=== PATIENT | female | born 1955 | race Caucasian/White ===

== ENCOUNTER 2021-10-14 15:50 | Outpatient (REF) | payer MEDICARE, SELFPAY ==
[2021-10-14 19:58] LABS: ALT 41 U/L (14-59); AST 27 U/L (15-37); Albumin 3.9 g/dL (3.4-5.0); Alkaline Phosphatase 73 U/L (46-116); Anion Gap 5.5 mmol/L (3-11); BUN 16 mg/dL (7-18); Bilirubin, Total 0.3 mg/dL (0.2-1.0); CO2 32.5 mmol/L (21.0-32.0); CREATININE 0.6 mg/dL (0.55-1.02); Calcium 9.5 mg/dL (8.5-10.1); Calculated LDL 118 mg/dL (<100); Chloride 102 mmol/L (98-107); Cholesterol 225 mg/dL (<200); Estimated GFR 98.93 (mL/min/1.73m2); Glucose 107 mg/dL (74-106); HDL Cholesterol 50 mg/dL (40-60); Potassium 4.9 mmol/L (3.5-5.1); Sodium 140 mmol/L (136-145); TSH (W/Ref FT4) 2.18 uIU/mL (0.36-3.74); Total Protein 7.9 g/dL (6.4-8.2); Triglyceride 286 mg/dL (<150)
[2021-10-14 20:16] LABS: Vitamin D 25 Total 30.4 ng/mL (30-100)
== END 2021-10-14 15:51 | disposition home or self-care (01) ==
LOC: NCHCN 15:50
PROVIDERS: Visit Provider Nurse Practitioner Family
DX: I10 Essential (primary) hypertension (principal); N95.1 Menopausal and female climacteric states; F41.9 Anxiety disorder, unspecified
CPT/HCPCS: 80053; 80061; 82306; 84443

== ENCOUNTER 2022-03-07 21:42 | Outpatient (REF) | payer MEDICARE, SELFPAY ==
[2022-03-07 22:42] LABS: Hemoglobin A1C 6.6 % (<5.7)
[2022-03-07 22:48] LABS: Anion Gap 8.3 mmol/L (3-11); BUN 18 mg/dL (7-18); CO2 28.7 mmol/L (21.0-32.0); CREATININE 0.7 mg/dL (0.55-1.02); Calcium 9.5 mg/dL (8.5-10.1); Calculated LDL 90 mg/dL (<100); Chloride 104 mmol/L (98-107); Cholesterol 163 mg/dL (<200); Estimated GFR 94.73 (mL/min/1.73m2); Glucose 103 mg/dL (74-106); HDL Cholesterol 39 mg/dL (40-60); Potassium 3.9 mmol/L (3.5-5.1); Sodium 141 mmol/L (136-145); Triglyceride 172 mg/dL (<150)
[2022-03-07 23:22] LABS: Vitamin D 25 Total 35.2 ng/mL (30-100)
== END 2022-03-07 21:43 | disposition home or self-care (01) ==
LOC: NCHCN 21:42
PROVIDERS: Visit Provider Nurse Practitioner Family
DX: E78.5 Hyperlipidemia, unspecified (principal); I10 Essential (primary) hypertension; F41.8 Other specified anxiety disorders; R73.09 Other abnormal glucose; E55.9 Vitamin D deficiency, unspecified
CPT/HCPCS: 80048; 80061; 82306; 83036

== ENCOUNTER 2022-04-22 00:07 | Outpatient (CLI) | payer MEDICARE, SELFPAY ==
--- NOTE | 2022-04-22 | DI.DEXA_ITS ---
Exam(s) XR DEXA BONE DENSITY W/WO ISABELA EXAM: XR DEXA BONE DENSITY W/WO ISABELA CLINICAL HISTORY: MENOPAUSAL SCREENING, Z78.0 TECHNIQUE: COMPARISON: No exams were available for comparison FINDINGS: Lateral Spine Image: Unremarkable. No compression deformities identified. Left hip: Total T-Score: 0.1 Total Z-Score: 1.4 T- and Z-scores: Within normal limits. Lumbar Spine: Total T-Score: 1.5 Total Z-Score: 3.5 T- and Z-scores: Within normal limits. IMPRESSION: No evidence of osteoporosis.
--- NOTE | 2022-04-22 11:46 | DI.MAMMO_ITS ---
Exam(s) MAMMO SCREENING EXAM: MAMMO SCREENING CLINICAL HISTORY: SCREENING, Z12.31 TECHNIQUE: Bilateral full field digital CC and MLO mammographic images were obtained with 3D tomosyn thesis and utilizing computer aided detection (CAD). COMPARISON: Available for comparison. FINDINGS: Masses/Architectural Distortion: None seen. Microcalcifications: No suspicious pleomorphic-type are seen. Skin Thickening/Nipple Retraction: None. IMPRESSION: 1. No significant interval change with no specific features of malignancy noted. 2. Unless there is more urgent need, screening mammography is recommended, as per [employer] guidelines. BI-RADS Category 1 - Negative Breast Density - Category B - Scattered areas of fibroglandular density Breast density category C or D implies that the patient has dense breast tissue. Dense breast tissue is very common and is not abnormal but dense breast tissue can make it harder to find cancer on a ma mmogram. Also, dense breast tissue may increase their breast cancer risk. This information about the result of the mammogram report was provided to the patient to raise their awareness. Use this report when you speak with the patient about their risks for breast cancer, which includes their family hist ory. At that time, you may recommend for more screening tests (Ultrasound or MRI) as they might be us eful based on their risk. A negative radiographic report should not delay biopsy if a dominant or clinically suspicious mass is present. Up to ten percent of cancers are not identified on mammography. A negative report may reinforce clinical impression. Adenosis and dense breasts may obscure an underlying neoplasm. False positive reports average 6 to 10%. Patient will receive a letter notifying them of these results.
== END 2022-04-22 00:27 ==
PROVIDERS: Visit Provider Nurse Practitioner Family
DX: Z12.31 Encounter for screening mammogram for malignant neoplasm of breast (principal); Z78.0 Asymptomatic menopausal state; Z13.820 Encounter for screening for osteoporosis
CPT/HCPCS: 77063; 77067; 77080

== ENCOUNTER 2022-05-19 16:51 | Outpatient (REF) | payer MEDICARE, SELFPAY ==
[2022-05-19 15:38] LABS: Hemoglobin A1C 6.7 % (<5.7)
== END 2022-05-19 16:52 | disposition home or self-care (01) ==
LOC: NCHCN 16:51
PROVIDERS: Visit Provider Nurse Practitioner Family
DX: R73.09 Other abnormal glucose (principal)
CPT/HCPCS: 83036

== ENCOUNTER 2022-06-10 00:13 | Outpatient (CLI) | payer MEDICARE, SELFPAY ==
--- NOTE | 2022-06-10 | DI.CTLCSR_ITS ---
Exam(s) CT CHEST LUNG CANCER SCREEN EXAM: CT CHEST LUNG CANCER SCREEN CLINICAL HISTORY: SMOKER, F17.210,SCREENING FOR LUNG CA. TECHNIQUE: Imaging Protocol: Low Dose Technique CONTRAST MATERIAL: None COMPARISON: No exams were available for comparison FINDINGS: CHEST: LUNGS: There are no ominous pulmonary nodules. There is a small 3 millimeter calcified granuloma loca marci laterally in the left upper lobe. No confluent infiltrates, ominous pulmonary nodules, nor pleur al effusions. MEDIASTINUM: There is no obvious hilar nor mediastinal adenopathy. CARDIAC: Heart size normal. There is a small pericardial effusion. Caliber thoracic aorta is within normal limits.. OTHER: There is a nodule in the right adrenal gland which measures 1.7 x 1.6 cm. Left adrenal gland appears unremarkable. Liver appears slightly prominent in size. Spleen size normal. OSSEOUS: No significant osseous lesions.. Scoliosis noted.. No fractures. IMPRESSION: 1. No significant pulmonary nodules, infiltrates, nor pleural effusions and there is no intrathoracic adenopathy. 2. Pericardial effusion noted. Requires follow-up. 3. Lung RADS Cat 1S - Negative: No nodules and definitely benign nodules. However, there is a perica rdial effusion noted. This requires appropriate follow-up. Lung-RADS 1.0 CATEGORIES: Category 0 - Prior chest CT exam(s) being located for comparison. Category 1 - Annual screening in 12 months. No nodules or definitely benign nodules. Category 2 - Annual screening in 12 months. Benign appearance. Nodules with low likelihood of becomin g active cancer. Category 3 - 6-month follow-up. Probably benign. Short-term follow-up suggested. Nodules with low lik elihood of becoming active cancer. Category 4A - 3-month follow-up and CT/PET if >8 mm in size. Suspicious finding. Findings which requi re additional testing. Category 4B - Findings which require additional testing and tissue sampling. Category 4X - Category 3 or 4 nodules with additional features or imaging findings that increases the suspicion of malignancy. Modifier S- Potentially clinically significant findings (non lung cancer) RADIATION DOSE DELIVERED: 70.35mGy.cm Total DLP DATA REPOSITORY: All CT scans at this facility are submitted to the National Radiology Data Registry (NRDR) Dose Index Registry (DIR) with the [employer] (ACR). RADIATION OPTIMIZATION: All CT scans at this facility use at least one of these dose optimization te chniques: automated exposure control; mA and/or kV adjustment per patient size (includes targeted exa ms where dose is matched to clinical indication); or iterative reconstruction.
== END 2022-06-10 00:33 ==
LOC: DI 00:14
PROVIDERS: Visit Provider Nurse Practitioner Family
DX: F17.210 Nicotine dependence, cigarettes, uncomplicated (principal)
CPT/HCPCS: 71271

== ENCOUNTER 2022-06-28 15:09 | Emergency (ER) | payer MEDICARE, SELFPAY ==
[2022-06-28 15:12] VITALS: BP 155/99; PULSE 105; RESP 18; TEMP 36.8; O2SAT 96
--- NOTE | 2022-06-28 15:27 | ED.GENADUL_ITS ---
Discharge Plan Disposition Patient Disposition: Home Condition: Good Discharge Details Clinical Impression: Acute Lyme disease, Tick bite Primary Care Provider: Unknown,Unknown ED Provider: Gal Huntley Home Meds and New Rx's Prescriptions: New doxycycline hyclate 100 mg capsule 100 mg PO BID 14 Days Qty: 28 0RF Continued losartan 50 mg Tablet 50 mg PO DAILY sertraline 50 mg Tablet 50 mg PO DAILY metformin 500 mg Tablet Extended Release 24hr 500 mg PO DAILY Discharge Instructions Instructions: Lyme Disease (ED), Tick Bite (ED) Additional Instructions: You were seen in the emergency department for a rash after a tick bite on your right upper leg/lower glute. Based off our exam you likely have a bull's-eye rash associated with Lyme disease. Take the antibiotics prescribed for the full duration even if you start to feel better. Follow-up with your primary care doctor about this visit. HPI General Date/Time Provider Initiated Documentation: 06/28/22 15:23 . Related Data Home Medications Medication Instructions Recorded Confirmed doxycycline hyclate 100 mg capsule 100 mg PO BID 14 days #28 caps 06/28/22 losartan 50 mg tablet 50 mg PO DAILY 06/28/22 06/28/22 metformin 500 mg tablet,extended 500 mg PO DAILY 06/28/22 06/28/22 release 24hr sertraline 50 mg tablet 50 mg PO DAILY 06/28/22 06/28/22 Previous Rx's Medication Instructions Recorded doxycycline hyclate 100 mg capsule 100 mg PO BID 14 days #28 caps 06/28/22 Allergies Allergy/AdvReac Type Severity Reaction Status Date / Time codeine AdvReac Intermediate Nausea Unverified 06/28/22 15:19 General Stated Complaint: RashLesion PAMELA: 4 PFSH All Active Problems (Updated 06/28/22 @ 15:28 by Gal Huntley MD) Acute Lyme disease (Acute) Tick bite (Acute) Social History Smoking/Tobacco Use Status: Current every day Tobacco Type: cigarettes Smoking risk assessment performed?: Yes Alcohol Intake: never Drug use: Never Substance use type: marijuana Do you feel safe at home: Yes Do you feel safe in your relationship?: Yes Course Vital Signs Vital signs: Vital Signs Temperature 36.8 C 06/28/22 15:12 Pulse 105 H 06/28/22 15:12 Respiratory Rate 18 06/28/22 15:12 Blood Pressure 155/99 H 06/28/22 15:12 Pulse Oximetry 96 06/28/22 15:12 Temperature 36.8 C 06/28/22 15:12 Temperature Source Temporal Artery Scan 06/28/22 15:12 Pulse 105 H 06/28/22 15:12 Respiratory Rate 18 06/28/22 15:12 Respiratory Effort Normal, Non-Labored 06/28/22 15:18 Blood Pressure 155/99 H 06/28/22 15:12 Blood Pressure Position Sitting 06/28/22 15:12 Pulse Oximetry 96 06/28/22 15:12 Oxygen Delivery Method Room Air 06/28/22 15:12 Oxygen Flow Rate 0 06/28/22 15:12
== END 2022-06-28 15:54 | disposition home or self-care (01) ==
PROVIDERS: Emergency Provider Student in an Organized Health Care Education/Training Program
DX: S71.151A Open bite, right thigh, initial encounter (principal); W57.XXXA Bitten or stung by nonvenomous insect and other nonvenomous arthropods, initial encounter
CPT/HCPCS: 99283

== ENCOUNTER 2022-12-12 17:37 | Outpatient (REF) | payer MEDICARE, SELFPAY ==
[2022-12-12 19:31] LABS: TSH (W/Ref FT4) 1.66 uIU/mL (0.36-3.74)
[2022-12-12 19:36] LABS: Hemoglobin A1C 6.5 % (<5.7)
== END 2022-12-12 17:38 | disposition home or self-care (01) ==
LOC: NCHCN 17:37
PROVIDERS: PCP Nurse Practitioner Family; Visit Provider Nurse Practitioner Family
DX: E11.9 Type 2 diabetes mellitus without complications (principal); I10 Essential (primary) hypertension; E78.5 Hyperlipidemia, unspecified
CPT/HCPCS: 83036; 84443

== ENCOUNTER 2023-03-20 18:20 | Outpatient (REF) | payer MEDICARE, SELFPAY ==
[2023-03-20 19:58] LABS: Hemoglobin A1C 5.9 % (<5.7)
== END 2023-03-20 18:21 | disposition home or self-care (01) ==
LOC: NCHCN 18:20
PROVIDERS: PCP Nurse Practitioner Family; Visit Provider Nurse Practitioner Family
DX: E11.9 Type 2 diabetes mellitus without complications (principal)
CPT/HCPCS: 83036

== ENCOUNTER 2023-10-05 13:43 | Emergency (ER) | payer MEDICARE, SELFPAY ==
[2023-10-05] VITALS (14 sets, daily range): BP systolic 112–169; BP diastolic 68–92; PULSE 75–92; RESP 17–25; TEMP 36.6–37; O2SAT 93–98
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
--- NOTE | 2023-10-05 14:16 | DI.RAD_ITS ---
Exam(s) XR CHEST 1V IN DI DEPT EXAM: XR CHEST 1V IN DI DEPT CLINICAL HISTORY: dizziness TECHNIQUE: 2D digital imaging was performed. COMPARISON: No exams were available for comparison FINDINGS: LUNGS: Clear. No pleural abnormality seen. HEART: Normal size. AORTA: Normal diameter. BONES: Scoliosis. Soft tissues: Unremarkable. IMPRESSION: No acute findings. DATA REPOSITORY: RADIATION DOSE DELIVERED:
[2023-10-05 14:31] LABS: Abs Immature Grans 0.02 10^3/uL (0.0-0.06); Absolute Basophil Count 0.05 10^3/uL (0.0-0.2); Absolute Eosinophil Count 0.19 10^3/uL (0.0-0.7); Absolute Lymphocyte Count 2.39 10^3/uL (1.2-3.4); Absolute Monocyte Count 0.49 10^3/uL (0.1-0.8); Basophils % 0.7 %; Eosinophils % 2.7 %; HCT 44.8 % (36.0-46.0); HGB 14.7 g/dL (11.2-15.7); Immature Grans % 0.3 %; Lymphocytes % 33.9 %; MCH 30.4 pg (27.0-33.0); MCHC 32.8 % (32.0-36.0); MCV 93 fL (80-95); MPV 10.7 fL (8.0-11.0); Neutrophils % 55.4 %; Platelet Count 200 10^3/uL (130-400); RBC 4.84 10^6/uL (3.93-5.22); RDW 13.3 % (11.7-14.6); RDW-SD 45.4 fL; WBC 7.04 10^3/uL (4.4-10.8)
[2023-10-05 14:49] LABS: ALT 29 U/L (14-59); AST 16 U/L (15-37); Albumin 3.8 g/dL (3.4-5.0); Alkaline Phosphatase 89 U/L (46-116); Anion Gap 7.6 mmol/L (3-11); BUN 16 mg/dL (7-18); Bilirubin, Total 0.38 mg/dL (0.2-1.0); CO2 29.4 mmol/L (21.0-32.0); CREATININE 0.7 mg/dL (0.55-1.02); Calcium 9.9 mg/dL (8.5-10.1); Chloride 101 mmol/L (98-107); Estimated GFR 94.15 (mL/min/1.73m2); Glucose 108 mg/dL (74-106); Potassium 4.1 mmol/L (3.5-5.1); Sodium 138 mmol/L (136-145); Total Protein 7.4 g/dL (6.4-8.2)
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
[2023-10-05] MEDS: Normal Saline - Diluent 50 ML VIAL IJ (15:53)
[2023-10-05] MEDS: Omnipaque 350 MG/ML 100 ML BTL 70 ML IJ (15:54)
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
--- NOTE | 2023-10-05 16:26 | DI.VRAD_ITS ---
PROCEDURE INFORMATION: Exam: XR Chest Exam date and time: 10/05/2023 3:55 PM Age: 68 years old Clinical indication: Other: Dizziness TECHNIQUE: Imaging protocol: Radiologic exam of the chest. Views: 1 view. COMPARISON: CT CHEST LUNG CANCER SCREEN 06/10/2022 13:56 FINDINGS: Tubes, catheters and devices: EKG wires overlie the chest. Lungs: Unremarkable. No consolidation. Pleural spaces: Unremarkable. No pleural effusion. No pneumothorax. Heart/Mediastinum: Unremarkable. No cardiomegaly. Bones/joints: Degenerative scoliotic changes of the spine. IMPRESSION: No acute cardiopulmonary findings. Dictated and Authenticated by: Alondra Bales MD. Ordering:LAUREN Dueñas MD
--- NOTE | 2023-10-05 16:31 | DI.VRAD_ITS ---
PROCEDURE INFORMATION: Exam: XR Right Wrist Exam date and time: 10/05/2023 3:51 PM Age: 68 years old Clinical indication: Pain; Wrist; Right TECHNIQUE: Imaging protocol: Radiologic exam of the right wrist. Views: 3 or more views. COMPARISON: No relevant prior studies available. FINDINGS: Bones/joints: Deformity of the lateral aspect of the wrist. Surgical clips involving the scaphoid. Degenerative changes at the radial carpal joint. Degenerative changes of the 1st and 2nd metacarpal carpal joint. Soft tissues: Soft tissue swelling of the wrist. IMPRESSION: Postsurgical changes of the wrist with associated degenerative changes. Dictated and Authenticated by: Alondra Bales MD. Ordering:LAUREN Dueñas MD
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
[2023-10-05] MEDS: Ibuprofen 600 MG TAB PO (16:49)
[2023-10-05] MEDS: Lidocaine 5% Patch 1 PATCH TP (16:50)
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
== END 2023-10-05 16:48 | disposition home or self-care (01) ==
LOC: ER 16:40
PROVIDERS: Physician Assistant; Emergency Provider Nurse Practitioner Family; PCP Nurse Practitioner Family
DX: S63.501A Unspecified sprain of right wrist, initial encounter (principal); S13.4XXA Sprain of ligaments of cervical spine, initial encounter; S06.0XAA Concussion with loss of consciousness status unknown, initial encounter; R42 Dizziness and giddiness; V49.40XA Driver injured in collision with unspecified motor vehicles in traffic accident, initial encounter
CPT/HCPCS: 00123; 29125; 36416; 70496; 70498; 80053; 82962; 93005; 99285; 71045; 72125; 73110; 85025; 93010; 99283; J3490

== ENCOUNTER 2024-03-04 19:26 | Outpatient (REF) | payer MEDICARE, SELFPAY ==
[2024-03-04 17:51] LABS: ALT 29 U/L (14-59); AST 16 U/L (15-37); Alkaline Phosphatase 82 U/L (46-116); Anion Gap 11.1 mmol/L (3-11); BUN 15 mg/dL (7-18); Bilirubin, Total 0.36 mg/dL (0.2-1.0); CO2 27.9 mmol/L (21.0-32.0); CREATININE 0.7 mg/dL (0.55-1.02); Calcium 9.9 mg/dL (8.5-10.1); Calculated LDL 52 mg/dL (<100); Chloride 105 mmol/L (98-107); Cholesterol 147 mg/dL (<200); Estimated GFR 93.56 (mL/min/1.73m2); Glucose 109 mg/dL (74-106); HDL Cholesterol 56 mg/dL (40-60); Potassium 4.3 mmol/L (3.5-5.1); Sodium 144 mmol/L (136-145); Total Protein 7.1 g/dL (6.4-8.2); Triglyceride 199 mg/dL (<150)
[2024-03-04 18:02] LABS: COMMENT (LAB VIEW ONLY) 69.22 mg/dL
[2024-03-04 18:56] LABS: Microalb ug/mg Crea 1257.2 ug/mg Cr
== END 2024-03-04 19:27 | disposition home or self-care (01) ==
LOC: NCHCN 19:26
PROVIDERS: PCP Nurse Practitioner Family; Visit Provider Nurse Practitioner Family
DX: E11.9 Type 2 diabetes mellitus without complications (principal)
CPT/HCPCS: 80053; 80061; 82043; 82570

== ENCOUNTER 2024-03-08 19:39 | Outpatient (REF) | payer MEDICARE, SELFPAY ==
[2024-03-08 18:51] LABS: Bacteria Few HPF (Negative); C & S Indicated? No; Casts Negative LPF (Negative); Crystals Negative HPF (Negative); Epithelial Cells Rare HPF (Negative); Mucus Negative (Negative); RBC Negative HPF (0-2)
== END 2024-03-08 19:40 | disposition home or self-care (01) ==
LOC: NCHCN 19:39
PROVIDERS: PCP Nurse Practitioner Family; Visit Provider Nurse Practitioner Family
DX: R80.9 Proteinuria, unspecified (principal)
CPT/HCPCS: 81015

== ENCOUNTER 2024-04-18 01:16 | Outpatient (CLI) | payer MEDICARE, SELFPAY ==
--- NOTE | 2024-04-18 | DI.US_ITS ---
Exam(s) US RENAL EXAM: US RENAL CLINICAL HISTORY: ALBUMINURIA, R80.9, PROTEINURIA. TECHNIQUE: Ann scale, color and spectral Doppler were used. COMPARISON: No exams were available for comparison FINDINGS: Renal size in cm: Right: 11.4. Left: 10.5. Echogenicity: Normal. Hydronephrosis: No. Cyst or mass: There is a 1.8 x 1.2 x 1.3 cm simple cyst in the superior pole of the left kidney. No follow-up is recommended. Nephrolithiasis: No. Other findings: None. Bladder:Normal. Ureteral jets: Right: Visualized and unremarkable. Left: Visualized and unremarkable. Prevoid vol:203 cc Postvoid vol:0 cc Renal color flow: Symmetric and within normal limits. IMPRESSION: Unremarkable examination. DATA REPOSITORY:
== END 2024-04-18 01:36 ==
PROVIDERS: PCP Nurse Practitioner Family; Visit Provider Nurse Practitioner Family
DX: R80.9 Proteinuria, unspecified (principal)
CPT/HCPCS: 76770

== ENCOUNTER 2024-05-08 12:37 | Observation (INO) | payer MEDICARE, SELFPAY ==
[2024-05-08] VITALS (46 sets, daily range): BP systolic 109–163; BP diastolic 49–104; PULSE 90–120; RESP 5–30; TEMP 36.2–36.7; O2SAT 86–99
--- NOTE | 2024-05-08 12:30 | RT.EKG_ITS ---
APPROVED REPORT Exam: Resting ECG Reason for Exam: SOB Patient Location: E HR:106 bpm ECG Measurements Heart Rate 106 AXIS RI 153 P 79 QRSd 84 QRS 92 QT 332 T 60 QTc 442 Conclusion Sinus tachycardia...rate> 99 Probable left atrial enlargement...P >50mS, <-0.10mV V1 Right axis deviation...QRS axis ( 54,603) No STEMI
--- NOTE | 2024-05-08 12:30 | DI.RAD_ITS ---
Exam(s) XR PORTABLE CHEST AP EXAM: XR PORTABLE CHEST AP CLINICAL HISTORY: Shortness of breath TECHNIQUE: 2D digital imaging was performed of the chest. One image was obtained. An AP view was ob tained. COMPARISON: CR,XR XR CHEST 1V IN DI DEPT from 10/05/2023 FINDINGS: MEDIASTINUM: Normal. HEART: Normal. PULMONARY VASCULATURE: Normal. LUNGS: Clear. PLEURAL SPACE: No pleural effusion or pneumothorax. BONE:Within normal limits for the patient's age. There is a right convex thoracic scoliosis. OTHER FINDINGS:Normal. IMPRESSION: No acute pulmonary findings. DATA REPOSITORY: RADIATION DOSE DELIVERED:
--- NOTE | 2024-05-08 12:45 | W.ED.GENAD ---
Discharge Plan Disposition Patient Disposition: Admit to [facility] Discharge Details Clinical Impression: Reactive airway disease with acute exacerbation, Acute respiratory failure with hypoxia and hypercarbia Primary Care Provider: Charlene Pool ED Provider: Karan Delgado Home Meds and New Rx's Prescriptions: No Action albuterol sulfate 90 mcg/actuation HFA aerosol inhaler 2 puff INHALATION Q4H PRN Patient Comments: INHALE TWO PUFFS BY MOUTH EVERY 4 HOURS NEEDED FOR WHEEZE losartan 50 mg Tablet 50 mg PO DAILY sertraline 50 mg Tablet 50 mg PO DAILY metformin 500 mg Tablet Extended Release 24hr 500 mg PO DAILY HPI General Date/Time Provider Initiated Documentation: 05/08/24 12:43. HPI Narrative: MDM This is an overall well-appearing normothermic but initially tachycardic 69-year-old female with prolonged expiratory phase hypoxia concerning for acute exacerbation of reactive airway disease. She is requiring several liters oxygen and as result will likely require hospitalization. Bedside ultrasound was not consistent with acute heart failure. Will send a D-dimer to assess for PE. Patient is not having chest pain to suggest aortic dissection. No black no bloody stools no history of anticoagulation to suggest acute GI bleed. No obvious murmurs to suggest aortic stenosis. Patient does not have a formal diagnosis of COPD but given her history of tobacco use she will certainly benefit from PFTs as an outpatient if these have not been done already. No trauma and equal breath sounds so my suspicion is low for pneumothorax. Patient is tachycardic but has not had any fevers so my suspicion is low for pneumonia given that her symptoms began just over the past several days. Will swab for influenza COVID and RSV. Will provide prednisone doxycycline. 1:52 PM COVID influenza RSV all negative. D-dimer less than 1000 and based on the years criteria will defer CT chest. No GEO. CBC lacks anemia thrombocytopenia and leukocytosis. Portable chest no acute cardiopulmonary process. 2:15 PM Venous blood gas showing mild hypercarbia with borderline acidemic. Will trial positive pressure secondary to her WOB as she has some pursed lip breathing. She is requiring 1 L. No obvious infiltrate on chest x-ray we will defer amoxicillin. 3:45 PM Patient wore rescue BiPAP for approximately 1 hour. Became slightly difficult for her to remain adherent with the mask switched so she removed it. Her venous pH was markedly improved. Will hospitalize her on the floor. I was in touch with Dr. Jensen from the hospitalist team graciously agreed to accept the patient for hospitalization. Diagnostic interpretations performed by me: No acute cardiopulmonary process Per my independent interpretation chest x-ray shows: Per my independent interpretation EKG shows: Narrow complex sinus tachycardia at a rate of 106. Right axis deviation. Intervals within normal limits. No ST segment abnormalities. No T wave versions. T wave flattening in aVL. Compared to prior dated last year no acute changes. HPI This is a 69-year-old former smoker arrived to the emergency department in setting of increased productive cough and shortness of breath the past 2 days. She has been bringing up thick or yellow sputum. She reports that 2 months ago she had pneumonia and was on antibiotics. Oxygen saturation on room air was 85%. It increased to 98% on 3 L. Patient has had no chest pain or abdominal pain. She denies ongoing tobacco use. She has not formally been diagnosed with COPD. She has been sleeping in a chair. No trauma to the chest. Exam General: Well-appearing in mild distress speaking in complete sentences. Head: Normocephalic, atraumatic. Eye: Extraocular eye movements intact. No conjunctival injection. No scleral icterus. Ear, nose, mouth, throat: Grossly normal inspection. Normal voice, handling secretions normally. Neck: Trachea midline. Cardiovascular: Well-perfused distal extremities. Rapid regular rate. Respiratory: Nonlabored respiration. Markedly prolonged expiratory phase with end expiratory wheezes. No stridor. No retractions. Gastrointestinal: Nondistended abdomen. Musculoskeletal: No significant lower extremity pitting edema. Moving all 4 extremities spontaneously. Skin: Normal for age and race, grossly normal temperature and turgor. No acute rash. Neurologic: Alert and appropriate, no apparent acute deficits. Psychiatric: Mood and manner are appropriate. Grooming and personal hygiene are appropriate. Related Data Home Medications ?Medication ?Instructions ?Recorded ?Confirmed losartan 50 mg tablet 50 mg PO DAILY 06/28/22 05/08/24 metformin 500 mg tablet,extended 500 mg PO DAILY 06/28/22 05/08/24 release 24hr (osmotic) sertraline 50 mg tablet 50 mg PO DAILY 06/28/22 05/08/24 albuterol sulfate 90 mcg/actuation 2 puff inhalation Q4H PRN 05/08/24 05/08/24 aerosol inhaler Allergies Allergy/AdvReac Type Severity Reaction Status Date / Time codeine AdvReac Intermediate Nausea Unverified 05/08/24 12:43 General Stated Complaint: SOB PAMELA: 3 Course Vital Signs Vital signs: Vital Signs Temperature 36.4 C 05/08/24 12:39 Pulse 110 H 05/08/24 12:39 Respiratory Rate 28 H 05/08/24 12:39 Blood Pressure 133/92 H 05/08/24 12:39 Pulse Oximetry 96 05/08/24 12:39 Temperature 36.4 C 05/08/24 12:39 Temperature Source Tympanic 05/08/24 12:39 Pulse 110 H 05/08/24 12:39 Respiratory Rate 28 H 05/08/24 12:39 Blood Pressure 133/92 H 05/08/24 12:39 Blood Pressure Position Sitting 05/08/24 12:39 Pulse Oximetry 96 05/08/24 12:39 Oxygen Delivery Method Nasal Cannula 05/08/24 12:39 Oxygen Flow Rate 3 05/08/24 12:39 Pain Level 0 05/08/24 12:39 Medical Decision Making Quality:SDOH Health Related Social Needs: No Data to Display Critical Care Time Critical Care Time Critical Care Time: Yes Total Critical Care Time: 45 Attestation: Acute hypoxemic respiratory failure secondary to exacerbation reactive airway disease requiring bedside assessment and management. PFSH All Active Problems (Updated 05/08/24 @ 14:12 by Karan Delgado MD) Acute respiratory failure with hypoxia and hypercarbia (Acute) Reactive airway disease with acute exacerbation (Acute) Social History Smoking/Tobacco Use Status: Current every day Tobacco Type: cigarettes Smoking risk assessment performed?: Yes Alcohol Intake: never Drug use: Never Substance use type: marijuana Do you feel safe at home: Yes Do you feel safe in your relationship?: Yes POCUS Exam (ED) Limited Cardiac Exam DATE OF EXAM: 05/08/24 TIME OF EXAM: 14:00 PROVIDER THAT PERFORMED THE STUDY: Karan Delgado IS THIS A REPEAT EXAM DURING THIS ENCOUNTER: no REASON FOR EXAM: Dyspnea VISUALIZED STRUCTURES: Four Chambers, Left ventricle, LVOT and Other structure: Lungs VIEW OBTAINED: Apical 4-Chamber, Parasternal long-axis and Subxiphoid PERTINENT FINDINGS/IMPRESSION: No pericardial effusion and No RV dilation DIFFERENTIAL DIAGNOSES: Aortic outflow track less than 4 cm, good squeeze, RV less than LV, no significant pericardial effusion. No B-lines bilaterally. Exam complete
[2024-05-08] MEDS: predniSONE 20 MG TAB 60 MG PO (12:57)
[2024-05-08] MEDS: Albuterol/Ipratropium 3 ML UPD VIAL UPD (12:57)
[2024-05-08] MEDS: Normal Saline 500 ML 1000 ML IV (12:58)
[2024-05-08 13:03] LABS: Abs Immature Grans 0.03 10^3/uL (0.0-0.06); Absolute Basophil Count 0.09 10^3/uL (0.0-0.2); Absolute Eosinophil Count 1.02 10^3/uL (0.0-0.7); Absolute Lymphocyte Count 2.11 10^3/uL (1.2-3.4); Absolute Monocyte Count 0.66 10^3/uL (0.1-0.8); Absolute Neutrophil Count 5.65 10^3/uL (1.2-6.7); Basophils % 0.9 %; Eosinophils % 10.7 %; HCT 45.7 % (36.0-46.0); HGB 14.8 g/dL (11.2-15.7); Immature Grans % 0.3 %; Lymphocytes % 22.1 %; MCHC 32.4 % (32.0-36.0); MCV 93 fL (80-95); MPV 10.5 fL (8.0-11.0); Monocytes % 6.9 %; Neutrophils % 59.1 %; Platelet Count 202 10^3/uL (130-400); RBC 4.93 10^6/uL (3.93-5.22); RDW 13.9 % (11.7-14.6); RDW-SD 47.1 fL; WBC 9.56 10^3/uL (4.4-10.8)
[2024-05-08 13:23] LABS: Anion Gap 7.6 mmol/L (3-11); BUN 17 mg/dL (7-18); CO2 32.4 mmol/L (21.0-32.0); CREATININE 0.7 mg/dL (0.55-1.02); Calcium 9.6 mg/dL (8.5-10.1); Chloride 104 mmol/L (98-107); Estimated GFR 93.56 (mL/min/1.73m2); Glucose 120 mg/dL (74-106); Potassium 4.3 mmol/L (3.5-5.1); Sodium 144 mmol/L (136-145)
[2024-05-08 13:25] LABS: Troponin I 8 ng/L (<or=51)
[2024-05-08 13:40] LABS: COVID-19 PCR Negative (Negative); Influenza A PCR Negative (Negative); Influenza B PCR Negative (Negative); RSV PCR Negative (Negative); Source Nasopharynx
[2024-05-08 13:42] LABS: D-Dimer 948 ng/mlFEU (<500)
[2024-05-08 13:50] LABS: Lab Add On Test DONE
[2024-05-08] MEDS: Doxycycline Hyclate 100 MG CAP PO (14:01)
[2024-05-08 14:08] LABS: BE (Venous) 5 mmol/L (-2-3); HCO3 (Venous) 31 mmol/L (23-28); O2 Sat (Venous) 41 %; TCO2 (Venous) 29 mmol/L (24-29); pH (Venous) 7.32 (7.31-7.41); pO2 (Venous) 25 mmHg
[2024-05-08 14:08] LABS: Troponin I 11 ng/L (<or=51)
[2024-05-08 14:11] LABS: pCO2 (Venous) 61 mmHg (41-51)
[2024-05-08 15:35] LABS: BE (Venous) 3 mmol/L (-2-3); HCO3 (Venous) 28 mmol/L (23-28); O2 Sat (Venous) 71 %; TCO2 (Venous) 26 mmol/L (24-29); pCO2 (Venous) 52 mmHg (41-51); pH (Venous) 7.34 (7.31-7.41); pO2 (Venous) 39 mmHg
--- NOTE | 2024-05-08 15:47 | W.PM.HP.N ---
Date of service: 05/08/24 Time of Service: 15:47 Assessment and Plan Assessment and plan (1) Acute respiratory failure with hypoxia and hypercarbia: Status: Acute Assessment and plan: Presented with hypoxia and PH 7.32 PCO2 61 on VBG- improving with BIPAP in the ED Repeat VBG in deteriorates PRN BIPAP And as below (2) COPD exacerbation: Status: Acute Assessment and plan: Increased cough, with yellowish sputum production - no official PFT- to be done OPT, but the patient smoked 1 pack/2 days for 43 years until last years Continue prednisone Continue doxycycline Scheduled and PRN nebs O2 wean as tolerated for sat 88-92% Mucinex (3) Reactive airway disease with acute exacerbation: Status: Acute Assessment and plan: Might be d/t history of seasonal allergy (4) Diabetes: Status: Chronic Assessment and plan: Gluc AC and HS with SSI Continue home dose semaglutide Not taking metformin anymore (5) On deep vein thrombosis (DVT) prophylaxis: Status: Acute Assessment and plan: On Lovenox Discussed with Dr. Jensen History of Present Illness History of Present Illness Chief Complaint: Shortness of breath, cough Narrative: This 69 years old female patient with a 21-pack year smoking history and quitting last year, seasonal allergies,pneumonia a month ago and outpatient treatment with prednisone and zithromax, hypertension presented to the ED at [facility] for evaluation of worsening shortness of breath starting 2 days prior with increased productive cough of clear to yellow sputum. VGB intially showed mild respiratory acidosis with a PH of 7.32, PCO2 61, HCO3 31 with improvement on BIPAP resulting in PH 7.34 PCO2 52 and HCO3 28. CXR was negative for acute findings, no other acute abnormality seen in blood work except for D-dimer at 948 , EKG showed ST HR 106 with some right axis deviation( V5) w/o signs of coronary occlusion. The patient was admitted to the medical floor for further evaluation of hypercabic acute hypoxic respiratory failure, COPD exacerbation. The patient received doxycycline and prednisone in the ED. Full code status confirmed. The patient denied fever, chills, change in vision , chest pain , nausea, vomiting, diarrhea, or dysuria. The patient reported difficulty breathing, ambulating d/t increased WOB when attempted, productive cough of yellowish sputum, tingling to extremities [employer], pneumonia last month with outpatient treatment, smoking history of 43 years and quitting last year. Review of Systems All systems reviewed & are unremarkable except as noted in HPI and below PFSH All Active Problems (Updated 05/08/24 @ 17:15 by Lety Ulloa APRN) On deep vein thrombosis (DVT) prophylaxis (Acute) Diabetes (Chronic) COPD exacerbation (Acute) Acute respiratory failure with hypoxia and hypercarbia (Acute) Reactive airway disease with acute exacerbation (Acute) Social History Smoking/Tobacco Use Status: Current every day Tobacco Type: cigarettes Smoking risk assessment performed?: Yes Alcohol Intake: never Drug use: Never Substance use type: marijuana Housing: house Do you feel safe at home: Yes Do you feel safe in your relationship?: Yes Meds Allergies and Home Medications Allergies Allergy/AdvReac Type Severity Reaction Status Date / Time codeine AdvReac Intermediate Nausea Unverified 05/08/24 12:43 Home Medications ?Medication ?Instructions ?Recorded ?Confirmed ?Type losartan 50 mg tablet 50 mg PO DAILY 06/28/22 05/08/24 History metformin 500 mg tablet,extended 500 mg PO DAILY 06/28/22 05/08/24 History release 24hr (osmotic) sertraline 50 mg tablet 50 mg PO DAILY 06/28/22 05/08/24 History albuterol sulfate 90 mcg/actuation 2 puff inhalation Q4H PRN 05/08/24 05/08/24 History aerosol inhaler Exam Narrative Exam Narrative: Constitutional The patient lying down with minimal respiratory distress when moving HENMT: Facial structures with normal appearance Eyes: Well aligned, intact ROM Neuro:alert and oriented X 4. No neurological focal deficit Resp: Speaks short sentences, labored breathing with speech, diminished breath sound bilaterally to LL , some air flow to upper lung, faint scattered exp wheezing Cardio: regular rhythm, S1, S2, bilateral radial and dorsalis pedis pulses are positive, palpable GI: Abdomen is not distended, soft and non tender, bowel sounds are present : Negative Costovertebral angle tenderness, no bladder distension Back/spine/Pelvis: No back tenderness, normal alignment Integumentary: No skin lesions or rash Extremities: strength 5/5 to bilateral lower and upper extremities Psych: RASS 0, congruent mood and normal affect. Results Labs 05/09/24 06:02 05/09/24 06:02 Labs: Laboratory Results - last 24 hr 05/08/24 05/08/24 05/08/24 12:54 12:58 13:11 WBC 9.56 RBC 4.93 Hgb 14.8 Hct 45.7 MCV 93 MCH 30.0 MCHC 32.4 RDW 13.9 Plt Count 202 MPV 10.5 Immature Gran % 0.3 Neutrophils % 59.1 Lymphocytes % 22.1 Monocytes % 6.9 Eosinophils % 10.7 Basophils % 0.9 Nucleated RBC % 0.0 Absolute Neutrophils 5.65 Absolute Lymphocytes 2.11 Absolute Monocytes 0.66 Absolute Eosinophils 1.02 H Absolute Basophils 0.09 D-Dimer 948 H VBG pH VBG pCO2 VBG pO2 VBG HCO3 VBG Total CO2 VBG O2 Saturation VBG Base Excess Sodium 144 Potassium 4.3 Chloride 104 Carbon Dioxide 32.4 H Anion Gap 7.6 BUN 17 Creatinine 0.7 Est GFR (CKD-EPI 2020) 93.56 Glucose 120 H Calcium 9.6 Troponin I 8 COVID-19 Source Nasopharynx SARS-CoV-2 (PCR) Negative Influenza Type A (PCR) Negative Influenza Type B (PCR) Negative RSV (PCR) Negative Add-On Test Request DONE 05/08/24 05/08/24 05/08/24 13:35 14:05 15:30 WBC RBC Hgb Hct MCV MCH MCHC RDW Plt Count MPV Immature Gran % Neutrophils % Lymphocytes % Monocytes % Eosinophils % Basophils % Nucleated RBC % Absolute Neutrophils Absolute Lymphocytes Absolute Monocytes Absolute Eosinophils Absolute Basophils D-Dimer VBG pH 7.32 7.34 VBG pCO2 61 H 52 H VBG pO2 25 39 VBG HCO3 31 H 28 VBG Total CO2 29 26 VBG O2 Saturation 41 71 VBG Base Excess 5 H 3 Sodium Potassium Chloride Carbon Dioxide Anion Gap BUN Creatinine Est GFR (CKD-EPI 2020) Glucose Calcium Troponin I 11 COVID-19 Source SARS-CoV-2 (PCR) Influenza Type A (PCR) Influenza Type B (PCR) RSV (PCR) Add-On Test Request Last Vital Signs Temp 36.4 C 05/08/24 12:39 Pulse 96 H 05/08/24 15:31 Resp 22 05/08/24 15:31 BP 150/75 H 05/08/24 15:31 Pulse Ox 89 L 05/08/24 15:31 Time Spent Time spent with Patient: >75 minutes Time was spent: preparing to see the patient(eg.review tests), obtaining and/or reviewing separately otained hiistory, ordering medications,tests, procedures, referring, communicating with other health childcare aide, indepentently interpreting results, counseling the patient and care coordination
--- NOTE | 2024-05-08 16:25 | W.PC.ACHO ---
Registration Status: Primary Language: Preferred Language: ED Information & Data Chief Complaint SOB 05/08/24 13:55 Triage Note increased SOB/productive 05/08/24 12:39 cough x 2 days w/thick yellow & white sputum. Had pneumonia in march and this feels worse, has had to sit in chair and lean forward to breath, EMS noted 02 85% RA- given duoneb & placed on 3L/NC Most Recent Vital Signs Temperature 36.4 C 05/08/24 12:39 Temperature Source Tympanic 05/08/24 12:39 Pulse 96 H 05/08/24 15:31 Pulse 97 H 05/08/24 15:31 Respiratory Rate 22 05/08/24 15:31 Respiratory Effort Short of Breath 05/08/24 13:19 Respiratory Depth Normal 05/08/24 13:19 Respiratory Pattern Normal 05/08/24 13:19 Blood Pressure 150/75 H 05/08/24 15:31 Blood Pressure Mean 101 05/08/24 15:31 Blood Pressure Position Sitting 05/08/24 12:39 Pulse Oximetry 89 L 05/08/24 15:31 Oxygen Delivery Method Nasal Cannula 05/08/24 12:39 Oxygen Flow Rate 3 05/08/24 12:39 Fraction of Inspired Oxygen (FIO2) 21 05/08/24 14:26 Pain Level 0 05/08/24 12:39 Allergies codeine Adverse Reaction (Intermediate, Unverified 05/08/24 12:43) Nausea IV IV Catheter Type [Right Peripheral IV Antecubital] IV Catheter Gauge [Right 18 Antecubital] Diagnostics 05/08/24 05/08/24 05/08/24 Range/Units 16:05 15:30 14:05 WBC (4.4-10.8) 10^3/uL RBC (3.93-5.22) 10^6/uL Hgb (11.2-15.7) g/dL Hct (36.0-46.0) % MCV (80-95) fL MCH (27.0-33.0) pg MCHC (32.0-36.0) % RDW (11.7-14.6) % Plt Count (130-400) 10^3/uL MPV (8.0-11.0) fL Immature Gran % % Neutrophils % % Lymphocytes % % Monocytes % % Eosinophils % % Basophils % % Nucleated RBC % (0.0-0.3) % Absolute Neutrophils (1.2-6.7) 10^3/uL Absolute Lymphocytes (1.2-3.4) 10^3/uL Absolute Monocytes (0.1-0.8) 10^3/uL Absolute Eosinophils (0.0-0.7) 10^3/uL Absolute Basophils (0.0-0.2) 10^3/uL D-Dimer (<500) ng/mlFEU VBG pH 7.34 7.32 (7.31-7.41) VBG pCO2 52 H 61 H (41-51) mmHg VBG pO2 39 25 mmHg VBG HCO3 28 31 H (23-28) mmol/L VBG Total CO2 26 29 (24-29) mmol/L VBG O2 Saturation 71 41 % VBG Base Excess 3 5 H (-2-3) mmol/L Sodium (136-145) mmol/L Potassium (3.5-5.1) mmol/L Chloride (98-107) mmol/L Carbon Dioxide (21.0-32.0) mmol/L Anion Gap (3-11) mmol/L BUN (7-18) mg/dL Creatinine (0.55-1.02) mg/dL Est GFR (CKD-EPI 2020) (mL/min/1.73m2) Glucose (74-106) mg/dL Calcium (8.5-10.1) mg/dL Magnesium Pending Troponin I (<or=51) ng/L COVID-19 Source SARS-CoV-2 (PCR) (Negative) Influenza Type A (PCR) (Negative) Influenza Type B (PCR) (Negative) RSV (PCR) (Negative) Add-On Test Request 05/08/24 05/08/24 05/08/24 Range/Units 13:35 13:11 12:58 WBC (4.4-10.8) 10^3/uL RBC (3.93-5.22) 10^6/uL Hgb (11.2-15.7) g/dL Hct (36.0-46.0) % MCV (80-95) fL MCH (27.0-33.0) pg MCHC (32.0-36.0) % RDW (11.7-14.6) % Plt Count (130-400) 10^3/uL MPV (8.0-11.0) fL Immature Gran % % Neutrophils % % Lymphocytes % % Monocytes % % Eosinophils % % Basophils % % Nucleated RBC % (0.0-0.3) % Absolute Neutrophils (1.2-6.7) 10^3/uL Absolute Lymphocytes (1.2-3.4) 10^3/uL Absolute Monocytes (0.1-0.8) 10^3/uL Absolute Eosinophils (0.0-0.7) 10^3/uL Absolute Basophils (0.0-0.2) 10^3/uL D-Dimer (<500) ng/mlFEU VBG pH (7.31-7.41) VBG pCO2 (41-51) mmHg VBG pO2 mmHg VBG HCO3 (23-28) mmol/L VBG Total CO2 (24-29) mmol/L VBG O2 Saturation % VBG Base Excess (-2-3) mmol/L Sodium (136-145) mmol/L Potassium (3.5-5.1) mmol/L Chloride (98-107) mmol/L Carbon Dioxide (21.0-32.0) mmol/L Anion Gap (3-11) mmol/L BUN (7-18) mg/dL Creatinine (0.55-1.02) mg/dL Est GFR (CKD-EPI 2020) (mL/min/1.73m2) Glucose (74-106) mg/dL Calcium (8.5-10.1) mg/dL Magnesium Troponin I 11 (<or=51) ng/L COVID-19 Source Nasopharynx SARS-CoV-2 (PCR) Negative (Negative) Influenza Type A (PCR) Negative (Negative) Influenza Type B (PCR) Negative (Negative) RSV (PCR) Negative (Negative) Add-On Test Request DONE 05/08/24 Range/Units 12:54 WBC 9.56 (4.4-10.8) 10^3/uL RBC 4.93 (3.93-5.22) 10^6/uL Hgb 14.8 (11.2-15.7) g/dL Hct 45.7 (36.0-46.0) % MCV 93 (80-95) fL MCH 30.0 (27.0-33.0) pg MCHC 32.4 (32.0-36.0) % RDW 13.9 (11.7-14.6) % Plt Count 202 (130-400) 10^3/uL MPV 10.5 (8.0-11.0) fL Immature Gran % 0.3 % Neutrophils % 59.1 % Lymphocytes % 22.1 % Monocytes % 6.9 % Eosinophils % 10.7 % Basophils % 0.9 % Nucleated RBC % 0.0 (0.0-0.3) % Absolute Neutrophils 5.65 (1.2-6.7) 10^3/uL Absolute Lymphocytes 2.11 (1.2-3.4) 10^3/uL Absolute Monocytes 0.66 (0.1-0.8) 10^3/uL Absolute Eosinophils 1.02 H (0.0-0.7) 10^3/uL Absolute Basophils 0.09 (0.0-0.2) 10^3/uL D-Dimer 948 H (<500) ng/mlFEU VBG pH (7.31-7.41) VBG pCO2 (41-51) mmHg VBG pO2 mmHg VBG HCO3 (23-28) mmol/L VBG Total CO2 (24-29) mmol/L VBG O2 Saturation % VBG Base Excess (-2-3) mmol/L Sodium 144 (136-145) mmol/L Potassium 4.3 (3.5-5.1) mmol/L Chloride 104 (98-107) mmol/L Carbon Dioxide 32.4 H (21.0-32.0) mmol/L Anion Gap 7.6 (3-11) mmol/L BUN 17 (7-18) mg/dL Creatinine 0.7 (0.55-1.02) mg/dL Est GFR (CKD-EPI 2020) 93.56 (mL/min/1.73m2) Glucose 120 H (74-106) mg/dL Calcium 9.6 (8.5-10.1) mg/dL Magnesium Troponin I 8 (<or=51) ng/L COVID-19 Source SARS-CoV-2 (PCR) (Negative) Influenza Type A (PCR) (Negative) Influenza Type B (PCR) (Negative) RSV (PCR) (Negative) Add-On Test Request Intake and Output - 24 Hour Total 05/08/24 12:30 thru 05/08/24 15:33 Intake Total 510 Balance 510 Weight 76.204 kg Intake: IV 510 Falls Risk Assessment History of Falls No History 05/08/24 13:19 Contributing Factors No Factors 05/08/24 13:19 Ambulatory Aids Independent 05/08/24 13:19 Tubes/Lines None 05/08/24 13:19 Gait Evaluation No gait disturbance 05/08/24 13:19 Cognition No cognitive impairment 05/08/24 13:19 Fall Total Score 0 05/08/24 13:19 Level of Risk Standard/Low Risk 05/08/24 13:19 Problems Acute respiratory failure with hypoxia and hypercarbia (Acute) Reactive airway disease with acute exacerbation (Acute) v v v v v v v v v Sending and/or Receiving Nurses: Please use comment section below to note any information pertinent to the patient hand-off not included above. Information / Comments: Report received from: Emma GONZALEZ
--- NOTE | 2024-05-08 16:53 | NUR.NOTE ---
patient arrived from ED, report given by Emma GONZALEZ. Patient Axox4, ambulated from stretcher to bed independently, safe to be independent in room, urine x1 in toilet on arrival, VSS, mildly tachy, sats stable on room air with goal O2 of 88-92%, patient denies pain, exp wheezes noted on exam, all other systems intact. PIV intact. Oriented to room, staff, schedule, orders and medications. Bed low/locked, call sol in reach. Nursing Note:
[2024-05-08] MEDS: Enoxaparin 40 MG/0.4 ML SYR SC (17:27)
[2024-05-08] MEDS: Insulin Aspart 300 UNITS/3 ML PEN SC ×2 (17:27→21:35)
[2024-05-08 18:13] LABS: Magnesium 1.6 mg/dL (1.8-2.4)
[2024-05-08] MEDS: Levalbuterol 1.25 MG/3 ML UPD VIAL UPD (19:26)
[2024-05-08] MEDS: DOXYCYCLINE 100 MG in Normal Saline 100 ML IVPB (19:57)
[2024-05-08] MEDS: Normal Saline Flush 10 ML SYR IVP ×2 (19:57→19:58)
[2024-05-08] MEDS: guaiFENesin 600 MG TABCR PO (19:58)
[2024-05-08] MEDS: Rosuvastatin 5 MG TAB PO (19:58)
[2024-05-09] VITALS (9 sets, daily range): BP systolic 126–142; BP diastolic 73–85; PULSE 96–104; RESP 5–20; TEMP 36.1–36.6; O2SAT 90–97
[2024-05-09] MEDS: Albuterol/Ipratropium 3 ML UPD VIAL UPD ×2 (00:03→06:19)
[2024-05-09 06:34] LABS: Abs Immature Grans 0.05 10^3/uL (0.0-0.06); Absolute Basophil Count 0.04 10^3/uL (0.0-0.2); Absolute Eosinophil Count 0.24 10^3/uL (0.0-0.7); Absolute Lymphocyte Count 2.22 10^3/uL (1.2-3.4); Absolute Monocyte Count 0.85 10^3/uL (0.1-0.8); Absolute Neutrophil Count 6.65 10^3/uL (1.2-6.7); Basophils % 0.4 %; Eosinophils % 2.4 %; HCT 40.6 % (36.0-46.0); HGB 13.1 g/dL (11.2-15.7); Immature Grans % 0.5 %; Lymphocytes % 22.1 %; MCHC 32.3 % (32.0-36.0); MCV 93 fL (80-95); MPV 10.7 fL (8.0-11.0); Monocytes % 8.5 %; Neutrophils % 66.1 %; Platelet Count 198 10^3/uL (130-400); RBC 4.37 10^6/uL (3.93-5.22); RDW 13.6 % (11.7-14.6); RDW-SD 46.4 fL; WBC 10.05 10^3/uL (4.4-10.8)
[2024-05-09 06:55] LABS: Anion Gap 8.6 mmol/L (3-11); BUN 19 mg/dL (7-18); CO2 27.4 mmol/L (21.0-32.0); CREATININE 0.8 mg/dL (0.55-1.02); Chloride 106 mmol/L (98-107); Estimated GFR 79.71 (mL/min/1.73m2); Glucose 178 mg/dL (74-106); Potassium 3.9 mmol/L (3.5-5.1); Sodium 142 mmol/L (136-145)
[2024-05-09] MEDS: guaiFENesin 600 MG TABCR PO (07:41)
[2024-05-09] MEDS: Losartan 50 MG TAB PO (07:41)
[2024-05-09] MEDS: Enoxaparin 40 MG/0.4 ML SYR SC (07:41)
[2024-05-09] MEDS: DOXYCYCLINE 100 MG in Normal Saline 100 ML IVPB (07:41)
[2024-05-09] MEDS: Sertraline 50 MG TAB PO (07:41)
[2024-05-09] MEDS: predniSONE 20 MG TAB 60 MG PO (07:41)
[2024-05-09] MEDS: Insulin Aspart 300 UNITS/3 ML PEN SC ×2 (07:45→11:36)
[2024-05-09] MEDS: Normal Saline Flush 10 ML SYR IVP (07:46)
--- NOTE | 2024-05-09 09:56 | W.PM.PROGNOT ---
Date of Service Date of service: 05/09/24 Time of Service: 09:56 Assessment and Plan Assessment and plan (1) Acute respiratory failure with hypoxia and hypercarbia: Status: Acute Assessment and plan: Presented with hypoxia and PH 7.32 PCO2 61 on VBG- improving with BIPAP in the ED Repeat VBG in deteriorates PRN BIPAP And as below (2) COPD exacerbation: Status: Acute Assessment and plan: Increased cough, with yellowish sputum production - no official PFT- to be done OPT, but the patient smoked 1 pack/2 days for 43 years until last years Continue prednisone Continue doxycycline Scheduled and PRN nebs O2 wean as tolerated for sat 88-92% Mucinex (3) Reactive airway disease with acute exacerbation: Status: Acute Assessment and plan: Might be d/t history of seasonal allergy (4) Diabetes: Status: Chronic Assessment and plan: Gluc AC and HS with SSI Continue home dose semaglutide Not taking metformin anymore (5) On deep vein thrombosis (DVT) prophylaxis: Status: Acute Assessment and plan: On Lovenox Discussed with Dr. Jensen Objective Last Vital Signs Temp 36.4 C L 05/09/24 07:50 Pulse 96 H 05/09/24 07:50 Resp 16 05/09/24 07:50 BP 142/85 H 05/09/24 07:50 Pulse Ox 93 05/09/24 09:25 Laboratory Results - last 24 hr 05/08/24 05/08/24 05/08/24 12:54 12:58 13:11 WBC 9.56 RBC 4.93 Hgb 14.8 Hct 45.7 MCV 93 MCH 30.0 MCHC 32.4 RDW 13.9 Plt Count 202 MPV 10.5 Immature Gran % 0.3 Neutrophils % 59.1 Lymphocytes % 22.1 Monocytes % 6.9 Eosinophils % 10.7 Basophils % 0.9 Nucleated RBC % 0.0 Absolute Neutrophils 5.65 Absolute Lymphocytes 2.11 Absolute Monocytes 0.66 Absolute Eosinophils 1.02 H Absolute Basophils 0.09 D-Dimer 948 H VBG pH VBG pCO2 VBG pO2 VBG HCO3 VBG Total CO2 VBG O2 Saturation VBG Base Excess Sodium 144 Potassium 4.3 Chloride 104 Carbon Dioxide 32.4 H Anion Gap 7.6 BUN 17 Creatinine 0.7 Est GFR (CKD-EPI 2020) 93.56 Glucose 120 H Calcium 9.6 Magnesium Troponin I 8 COVID-19 Source Nasopharynx SARS-CoV-2 (PCR) Negative Influenza Type A (PCR) Negative Influenza Type B (PCR) Negative RSV (PCR) Negative Add-On Test Request DONE 05/08/24 05/08/24 05/08/24 13:35 14:05 15:30 WBC RBC Hgb Hct MCV MCH MCHC RDW Plt Count MPV Immature Gran % Neutrophils % Lymphocytes % Monocytes % Eosinophils % Basophils % Nucleated RBC % Absolute Neutrophils Absolute Lymphocytes Absolute Monocytes Absolute Eosinophils Absolute Basophils D-Dimer VBG pH 7.32 7.34 VBG pCO2 61 H 52 H VBG pO2 25 39 VBG HCO3 31 H 28 VBG Total CO2 29 26 VBG O2 Saturation 41 71 VBG Base Excess 5 H 3 Sodium Potassium Chloride Carbon Dioxide Anion Gap BUN Creatinine Est GFR (CKD-EPI 2020) Glucose Calcium Magnesium 1.6 L Troponin I 11 COVID-19 Source SARS-CoV-2 (PCR) Influenza Type A (PCR) Influenza Type B (PCR) RSV (PCR) Add-On Test Request 05/09/24 06:02 WBC 10.05 RBC 4.37 Hgb 13.1 Hct 40.6 MCV 93 MCH 30.0 MCHC 32.3 RDW 13.6 Plt Count 198 MPV 10.7 Immature Gran % 0.5 Neutrophils % 66.1 Lymphocytes % 22.1 Monocytes % 8.5 Eosinophils % 2.4 Basophils % 0.4 Nucleated RBC % 0.0 Absolute Neutrophils 6.65 Absolute Lymphocytes 2.22 Absolute Monocytes 0.85 H Absolute Eosinophils 0.24 Absolute Basophils 0.04 D-Dimer VBG pH VBG pCO2 VBG pO2 VBG HCO3 VBG Total CO2 VBG O2 Saturation VBG Base Excess Sodium 142 Potassium 3.9 Chloride 106 Carbon Dioxide 27.4 Anion Gap 8.6 BUN 19 H Creatinine 0.8 Est GFR (CKD-EPI 2020) 79.71 Glucose 178 H Calcium 9.0 Magnesium Troponin I COVID-19 Source SARS-CoV-2 (PCR) Influenza Type A (PCR) Influenza Type B (PCR) RSV (PCR) Add-On Test Request
--- NOTE | 2024-05-09 10:33 | W.PM.DS.N ---
Date of service: 05/09/24 Time of Service: 10:33 DS: Diagnosis Discharge Diagnosis (1) Acute respiratory failure with hypoxia and hypercarbia: Status: Acute (2) COPD exacerbation: Status: Acute (3) Reactive airway disease with acute exacerbation: Status: Acute (4) Diabetes: Status: Chronic (5) On deep vein thrombosis (DVT) prophylaxis: Status: Acute Discharge Plan Disposition Patient Disposition: Home Condition: Improving Discharge Details Reason For Visit: hypercapnic hypoxic resp. failure, COPD exacerbati Admit Date/Time: 05/08/24 16:36 Admit Provider: Danny Jensen Attending Provider: Danny Jensen Primary Care Provider: Charlene Pool Hospital Course Hospital Course: This 69 years old female patient with a 21-pack year smoking history and quitting last year, seasonal allergies,depression, pneumonia a month ago treated outpatient with prednisone and Z-pack, hypertension presented to the ED at [facility] for evaluation of worsening shortness of breath starting 2 days prior with increased productive cough of clear to yellow sputum. VGB intially showed mild respiratory acidosis with a PH of 7.32, PCO2 61, HCO3 31 with improvement on BIPAP with improving saturation with oxygen. EKG showed ST HR 106 with minimal right axis deviation( V5) w/o signs of coronary occlusion.No acute findings noted on chest XR. The patient was admitted to the medical floor for further evaluation of hypercabic acute hypoxic respiratory failure, COPD exacerbation. The patient received doxycycline and prednisone in the ED. On the day of discharged the patient no longer required oxygen supplementation, was ambulatory in room and able to complete ADL's without sustained SOB. The patient will be discharged home on the medicine listed below with no change made to her chronic medicine regimen. The patient will need to follow- up with PCP within 7 days of discharge and has a pulmonology referral. Recommendation for PCP follow-up: - Pulmonology referral for PFT and need for LD CT Discussed with Dr. Jensen Home Meds and New Rx's Prescriptions: New budesonide-formoterol [Symbicort] 80-4.5 mcg/actuation HFA aerosol inhaler 2 puff inhalation BID Qty: 10.2 0RF Rx Instructions: in with hypercapnic hypoxic respiratory failure most likely d/t COPD exacerbation ipratropium-albuterol 20-100 mcg/actuation mist 1 puff inhalation Q6H Qty: 4 0RF prednisone 20 mg tablet 60 mg PO DAILY Qty: 18 0RF Rx Instructions: Take 60 mg for 3 days starting 05/10/24 then take 40 mg for 3 days then take 20 mg for 3 days guaifenesin 600 mg tablet extended release 12hr 600 mg PO BID Qty: 10 0RF doxycycline hyclate 100 mg capsule 100 mg PO BID Qty: 8 0RF Spiriva Respimat 2.5 mcg/actuation Mist 2 puff inhalation DAILY Qty: 4 0RF Continued losartan 50 mg Tablet 50 mg PO DAILY sertraline 50 mg Tablet 50 mg PO DAILY metformin 500 mg Tablet Extended Release 24hr 500 mg PO DAILY No Action albuterol sulfate 90 mcg/actuation HFA aerosol inhaler 2 puff INHALATION Q4H PRN Patient Comments: INHALE TWO PUFFS BY MOUTH EVERY 4 HOURS NEEDED FOR WHEEZE Discharge Instructions Referrals: Charlene Pool [Primary Care Provider] - (Follow-up with PCP within 7 days of discharge) Carolina Stanley PA [[employer]] - (PFT 69 years old female patient with a 21-pack year smoking history and quitting last year, pneumonia a month ago and outpatient treatment with prednisone and zithromax, shortness of breath , increased productive cough of clear to yellow sputum. VGB PH of 7.32, PCO2 61, HCO3 31 ) Activity:: Activity as Tolerated Equipment/Supplies:: No Equipment Needed Diet:: heart healthy diabetic Discharge Orders Discharge Orders: Discharge Order (Routine); Ordered 05/09/24 Ordered By: Lety Ulloa DS: Summary Time Spent with Patient providing and/or coordinating discharge services: Greater than 30 minutes Status at Discharge Functional status at discharge: independent ambulation Overall status at discharge: patient is progressing back to baseline Mental Status: mental status grossly normal Speech and Movement: speech and movement normal Mood: congruent mood Affect: normal affect Quality:SDOH Health Related Social Needs: No Data to Display Exam Narrative Exam Narrative: Constitutional The patient w/o acute distress , ambulates in room for ADL's w/o sustained SOB HENMT: Facial structures with normal appearance Eyes: Well aligned, intact ROM Neuro:alert and oriented X 4. No neurological focal deficit Resp: Speaks 6-7 word- sentences, unlabored breathing with speech,improved breath sound bilaterally to LL , improving exp wheezing- improved airflow Cardio: regular rhythm, S1, S2, bilateral radial and dorsalis pedis pulses are positive, palpable GI: Abdomen is not distended, soft and non tender, bowel sounds are present Integumentary: No skin lesions or rash to exposed skin Extremities: strength 5/5 to bilateral lower and upper extremities Psych: RASS 0, congruent mood and normal affect. Psych Mental Status: mental status grossly normal Speech and Movement: speech and movement normal Mood: congruent mood Affect: normal affect DS: Data Vitals/I&O Vitals and I&O: Vital Signs Temperature 36.4 C L 05/09/24 07:50 Temperature Source Temporal Artery Scan 05/09/24 07:50 Pulse 96 H 05/09/24 07:50 Pulse Rhythm Regular 05/08/24 17:00 Pulse 103 H 05/08/24 16:20 Respiratory Rate 16 05/09/24 07:50 Respiratory Effort Labored, Pursed Lip 05/08/24 17:00 Respiratory Depth Normal 05/08/24 17:00 Respiratory Pattern Tachypnea 05/08/24 17:00 Blood Pressure 142/85 H 05/09/24 07:50 Blood Pressure Mean 68 05/08/24 16:16 Blood Pressure Position Sitting 05/08/24 12:39 Pulse Oximetry 93 05/09/24 09:25 Oxygen Delivery Method Room Air 05/09/24 09:25 Oxygen Flow Rate 0 05/09/24 09:25 Fraction of Inspired Oxygen (FIO2) 21 05/08/24 14:26 Pain Level 0 05/09/24 02:57 Comment vitals taken when pt was getting an updraft. RT states pt O2 was 92 before updraft 05/09/24 00:06 Intake & Output 05/08/24 05/08/24 05/09/24 11:59 23:59 11:59 Intake Total 630 / 630 550 / 550 Balance 630 / 630 550 / 550 Weight 82.1 kg Intake: IV 630 / 630 100 / 100 Oral 450 / 450 Other: Urine Color Yellow Yellow Urine Appearance Clear Clear Urine Odor None Normal Comment x1 in toilet pt voided independently to toilet, no amount recorded Data Completed and Pending Labs on day of discharge: Labs from last 24 hours 05/09/24 05/08/24 05/08/24 06:02 15:30 14:05 WBC 10.05 RBC 4.37 Hgb 13.1 Hct 40.6 MCV 93 MCH 30.0 MCHC 32.3 RDW 13.6 Plt Count 198 MPV 10.7 Immature Gran % 0.5 Neutrophils % 66.1 Lymphocytes % 22.1 Monocytes % 8.5 Eosinophils % 2.4 Basophils % 0.4 Nucleated RBC % 0.0 Absolute Neutrophils 6.65 Absolute Lymphocytes 2.22 Absolute Monocytes 0.85 H Absolute Eosinophils 0.24 Absolute Basophils 0.04 D-Dimer VBG pH 7.34 7.32 VBG pCO2 52 H 61 H VBG pO2 39 25 VBG HCO3 28 31 H VBG Total CO2 26 29 VBG O2 Saturation 71 41 VBG Base Excess 3 5 H Sodium 142 Potassium 3.9 Chloride 106 Carbon Dioxide 27.4 Anion Gap 8.6 BUN 19 H Creatinine 0.8 Est GFR (CKD-EPI 2020) 79.71 Glucose 178 H Calcium 9.0 Magnesium 1.6 L Troponin I COVID-19 Source SARS-CoV-2 (PCR) Influenza Type A (PCR) Influenza Type B (PCR) RSV (PCR) Add-On Test Request 05/08/24 05/08/24 05/08/24 13:35 13:11 12:58 WBC RBC Hgb Hct MCV MCH MCHC RDW Plt Count MPV Immature Gran % Neutrophils % Lymphocytes % Monocytes % Eosinophils % Basophils % Nucleated RBC % Absolute Neutrophils Absolute Lymphocytes Absolute Monocytes Absolute Eosinophils Absolute Basophils D-Dimer VBG pH VBG pCO2 VBG pO2 VBG HCO3 VBG Total CO2 VBG O2 Saturation VBG Base Excess Sodium Potassium Chloride Carbon Dioxide Anion Gap BUN Creatinine Est GFR (CKD-EPI 2020) Glucose Calcium Magnesium Troponin I 11 COVID-19 Source Nasopharynx SARS-CoV-2 (PCR) Negative Influenza Type A (PCR) Negative Influenza Type B (PCR) Negative RSV (PCR) Negative Add-On Test Request DONE 05/08/24 12:54 WBC 9.56 RBC 4.93 Hgb 14.8 Hct 45.7 MCV 93 MCH 30.0 MCHC 32.4 RDW 13.9 Plt Count 202 MPV 10.5 Immature Gran % 0.3 Neutrophils % 59.1 Lymphocytes % 22.1 Monocytes % 6.9 Eosinophils % 10.7 Basophils % 0.9 Nucleated RBC % 0.0 Absolute Neutrophils 5.65 Absolute Lymphocytes 2.11 Absolute Monocytes 0.66 Absolute Eosinophils 1.02 H Absolute Basophils 0.09 D-Dimer 948 H VBG pH VBG pCO2 VBG pO2 VBG HCO3 VBG Total CO2 VBG O2 Saturation VBG Base Excess Sodium 144 Potassium 4.3 Chloride 104 Carbon Dioxide 32.4 H Anion Gap 7.6 BUN 17 Creatinine 0.7 Est GFR (CKD-EPI 2020) 93.56 Glucose 120 H Calcium 9.6 Magnesium Troponin I 8 COVID-19 Source SARS-CoV-2 (PCR) Influenza Type A (PCR) Influenza Type B (PCR) RSV (PCR) Add-On Test Request PFSH All Active Problems (Updated 05/08/24 @ 17:15 by Lety Ulloa APRN) On deep vein thrombosis (DVT) prophylaxis (Acute) Diabetes (Chronic) COPD exacerbation (Acute) Acute respiratory failure with hypoxia and hypercarbia (Acute) Reactive airway disease with acute exacerbation (Acute) Social History Smoking/Tobacco Use Status: Current every day Tobacco Type: cigarettes Smoking risk assessment performed?: Yes Alcohol Intake: never Drug use: Never Substance use type: marijuana Housing: house Do you feel safe at home: Yes Do you feel safe in your relationship?: Yes Time Spent with Patient Time Spent with Patient: 70-84 minutes4 Time was spent: preparing to see the patient(eg.review tests), obtaining and/or reviewing separately otained hiistory, ordering medications,tests, procedures, referring, communicating with other health rn progressive care unit, indepentently interpreting results, counseling the patient and care coordination
--- NOTE | 2024-05-09 10:39 | PDOC.CMDIS ---
Date of service: 05/09/24 Time of Service: 10:39 LACE Index Scoring Tool Questions: Length of Stay (in days): 1 Was the patient admitted via the E.D.?: Yes Comorbidities: Chronic Pulmonary Disease E.D. Visits: 1 Answers: Total Score: 7 Risk of Readmission: Low Risk Care Management Discharge Plan Reason for Hospitalization: Respiratory Failure Discharge Plan: Discharge home via [facility] private vehicle. Follow up with community providers and discharge plan of care as instructed. No new services are ordered prior to discharge. Patient/Family Education Needs: Review discharge instructions and plan to follow up after discharge. Discuss ask me three. Services Needed at Discharge: Transportation ([facility] private vehicle. ) SDOH Health Related Social Needs: No Data to Display
[2024-05-09] MEDS: Acetaminophen 325 MG TAB 650 MG PO (11:10)
[2024-05-09 11:12] LABS: Magnesium 1.6 mg/dL (1.8-2.4)
[2024-05-09] MEDS: Budesonide/Formoterol 80/4.5 6.9 GM 60 PUFF INH IH (11:38)
[2024-05-09] MEDS: Tiotropium Bromide-Respimat 10 PUFF INH 2 PUFF IH (11:38)
== END 2024-05-09 12:19 | disposition home or self-care (01) ==
LOC: ER 15:46 → MS 16:40
PROVIDERS: Admitting Provider Family Medicine; Emergency Provider Emergency Medicine; PCP Nurse Practitioner Family; Responsible Provider Nurse Practitioner Acute Care; Visit Provider Family Medicine
DX: J44.1 Chronic obstructive pulmonary disease with (acute) exacerbation (principal); J96.01 Acute respiratory failure with hypoxia; J96.02 Acute respiratory failure with hypercapnia; E11.9 Type 2 diabetes mellitus without complications; Z79.899 Other long term (current) drug therapy; J45.901 Unspecified asthma with (acute) exacerbation; Z87.891 Personal history of nicotine dependence; I10 Essential (primary) hypertension; F32.A Depression, unspecified
CPT/HCPCS: 00123; 36415; 80048; 82805; 87637; 93005; 93308; 94640; 96361; 96365; 96366; 96372; 99291; J1650; 71045; 83735; 84484; 85025; 85379; 93010; 94664; 94667; 94668; 94760; 99223; 99239; G0378; J1815; J3490; J7512; J7614; J7620

== ENCOUNTER 2024-07-26 15:11 | Inpatient (IN) | payer MEDICARE, SELFPAY ==
[2024-07-26] VITALS (36 sets, daily range): BP systolic 105–152; BP diastolic 44–90; PULSE 96–127; RESP 15–30; TEMP 36.5–36.7; O2SAT 88–98
--- NOTE | 2024-07-26 15:15 | RT.EKG_ITS ---
APPROVED REPORT Exam: Resting ECG Reason for Exam: chest apin Patient Location: E HR:127 bpm ECG Measurements Heart Rate 127 AXIS KS 144 P 67 QRSd 84 QRS 81 QT 300 T 3 QTc 436 Conclusion Sinus tachycardia, rate 127 No interval abnormalities No STEMI No significant changes from priors other than a slight increase in rate
--- NOTE | 2024-07-26 16:11 | W.ED.GENAD ---
Discharge Plan Disposition Patient Disposition: [facility] Condition: Stable Discharge Details Clinical Impression: COPD exacerbation, Elevated troponin I level Primary Care Provider: Charlene Pool ED Provider: Vanessa Pham Home Meds and New Rx's Prescriptions: No Action albuterol sulfate 90 mcg/actuation HFA aerosol inhaler 2 puff INHALATION Q4H PRN Patient Comments: INHALE TWO PUFFS BY MOUTH EVERY 4 HOURS NEEDED FOR WHEEZE budesonide-formoterol [Symbicort] 80-4.5 mcg/actuation HFA aerosol inhaler 2 puff inhalation BID Qty: 10.2 0RF Rx Instructions: in with hypercapnic hypoxic respiratory failure most likely d/t COPD exacerbation ipratropium-albuterol 20-100 mcg/actuation mist 1 puff inhalation Q6H Qty: 4 0RF prednisone 20 mg tablet 60 mg PO DAILY Qty: 18 0RF Rx Instructions: Take 60 mg for 3 days starting 05/10/24 then take 40 mg for 3 days then take 20 mg for 3 days guaifenesin 600 mg tablet extended release 12hr 600 mg PO BID Qty: 10 0RF doxycycline hyclate 100 mg capsule 100 mg PO BID Qty: 8 0RF Spiriva Respimat 2.5 mcg/actuation Mist 2 puff inhalation DAILY Qty: 4 0RF Rybelsus 7 mg tablet 7 mg PO DAILY Patient Comments: TAKE ONE TABLET BY MOUTH EVERY DAY IN THE MORNING FOR TYPE 2 DIABETES losartan 50 mg Tablet 50 mg PO DAILY sertraline 50 mg Tablet 50 mg PO DAILY HPI General Mode of arrival: wheelchair. Date/Time Provider Initiated Documentation: 07/26/24 15:44. Limitations to Documentation: no limitations. Information obtained by: patient, family, RN notes reviewed and old records reviewed. HPI Narrative: 69 year old female presents to the ER with cc of increased SOB worse this am, reports continued SOB since discharged after being admitted for PNA and hypoxia. States intermittant bilateral lower extremity swelling, wheezing and cough. Reports chest tightness, no N/V/D fever or chills. Presents 88% on room air, tachycardic, and tachypneic. Related Data Home Medications ?Medication ?Instructions ?Recorded ?Confirmed losartan 50 mg tablet 50 mg PO DAILY 06/28/22 05/08/24 sertraline 50 mg tablet 50 mg PO DAILY 06/28/22 05/08/24 albuterol sulfate 90 mcg/actuation 2 puff inhalation Q4H PRN 05/08/24 05/08/24 aerosol inhaler budesonide-formoterol HFA 80 2 puff inhalation BID #10.2 grams 05/09/24 mcg-4.5 mcg/actuation aerosol inhaler (Symbicort) doxycycline hyclate 100 mg capsule 100 mg PO BID #8 caps 05/09/24 guaifenesin 600 mg tablet, 600 mg PO BID #10 tabs 05/09/24 extended release 12 hr ipratropium 20 mcg-albuterol 100 1 puff inhalation Q6H #4 grams 05/09/24 mcg/actuation mist for inhalation prednisone 20 mg tablet 60 mg (3 x 20 mg) PO DAILY #18 tabs 05/09/24 semaglutide 7 mg tablet (Rybelsus) 7 mg PO DAILY 05/09/24 05/09/24 tiotropium bromide 2.5 2 puff inhalation DAILY #4 grams 05/09/24 mcg/actuation mist for inhalation (Spiriva Respimat) Previous Rx's ?Medication ?Instructions ?Recorded budesonide-formoterol HFA 80 2 puff inhalation BID #10.2 grams 05/09/24 mcg-4.5 mcg/actuation aerosol inhaler (Symbicort) doxycycline hyclate 100 mg capsule 100 mg PO BID #8 caps 05/09/24 guaifenesin 600 mg tablet, 600 mg PO BID #10 tabs 05/09/24 extended release 12 hr ipratropium 20 mcg-albuterol 100 1 puff inhalation Q6H #4 grams 05/09/24 mcg/actuation mist for inhalation prednisone 20 mg tablet 60 mg (3 x 20 mg) PO DAILY #18 tabs 05/09/24 tiotropium bromide 2.5 2 puff inhalation DAILY #4 grams 05/09/24 mcg/actuation mist for inhalation (Spiriva Respimat) Allergies Allergy/AdvReac Type Severity Reaction Status Date / Time codeine AdvReac Intermediate Nausea Unverified 07/26/24 15:26 General Stated Complaint: SOB PAMELA: 2 Review of Systems All systems reviewed & are unremarkable except as noted in HPI and below Cardiovascular Cardiovascular: Reports pedal edema, Reports palpitations, Reports dyspnea and Reports dyspnea on exertion Respiratory Respiratory: Reports cough, Reports excessive phlegm production, Reports dyspnea, Reports dyspnea on exertion and Reports wheezing Endocrine Endocrine: Reports palpitations Allergic/Immunologic Allergic/Immunologic: Reports wheezing Exam Narrative Exam Narrative: Constitutional: Alert and oriented x3. Appears stated age. Normal body habitus. Head: Normocephalic, no trauma. Eyes: Pupils PERRL, Red reflex noted, EOM's intact. Eyelids symmetrical without lesions, discharge, or swelling. ENT: Bilateral TM's WNL, External ear normal to inspection, no mastoid TTP, swelling, or erythema, Nasal turbinates WNL, no nasal discharge. Normal dentition, Posterior pharynx WNL, no exudate. Chest: Tachycardia, Normal S1, S2, distal pulses intact. Resp: Scattered wheezes throughout, tachypnea increased work of breathing Abdomen: Soft, non-distended, Normoactive bowel sounds all 4 quads. Musculoskeletal: Normal gait, Moves all 4 extremities without difficulty. Skin: No suspicious rashes or lesions. Capillary refill less than 2 sec. Neurologic: Cranial nerves II-XII intact. Alert and oriented x 3. Motor: No deficits noted. Sensory: Intact bilaterally all 4 extremities. Hematologic/Lymphatic: No ecchymosis, no lymphadenopathy. Course Reevaluation(s) Time: 16:59 Reevaluation: Respiratory status reevaluation, patient appears much more comfortable, she is still slightly tachypneic and she does still have some scattered expiratory wheezes. Additional DuoNeb No. 2 ordered. Vital Signs Vital signs: Vital Signs Temperature 36.7 C 07/26/24 15:14 Pulse 127 H 07/26/24 15:14 Respiratory Rate 07/26/24 15:14 Blood Pressure 124/76 07/26/24 15:14 Pulse Oximetry 88 L 07/26/24 15:14 Temperature 36.7 C 07/26/24 15:14 Temperature Source Oral 07/26/24 15:14 Pulse 127 H 07/26/24 15:14 Respiratory Rate 07/26/24 15:14 Blood Pressure 124/76 07/26/24 15:14 Blood Pressure Position Sitting 07/26/24 15:14 Pulse Oximetry 93 07/26/24 15:53 Oxygen Delivery Method Nasal Cannula 07/26/24 15:53 Oxygen Flow Rate 2 07/26/24 15:53 Pain Level 7 07/26/24 15:14 Medical Decision Making 69 year old female presents to the ER with cc of increased SOB worse this am, reports continued SOB since discharged after being admitted for PNA and hypoxia. States intermittant bilateral lower extremity swelling, wheezing and cough. Reports chest tightness, no N/V/D fever or chills. Presents 88% on room air, tachycardic, and tachypneic. EKG was reviewed by Dr. Mata and myself ER attending, old EKG available for review no significant change. Please see official report. Work up ordered including CBC, CMP, Mag, Dimer, VBG, Pro BNP, CXR and serial troponins. Duo neb and 125 mg Solumedrol ordered. 1701: Critical result received from the lab initial troponin 89. 324 mg of chewable aspirin ordered. 1805: Second serial troponin at 1 hour is elevated at 102, will consult with cardiology at [facility]. 1807: [facility] [place] contacted to speak with Cardiology for possible NSTEMI. Discussed updated labs and POC with patient and family, they verbalize understanding. 1835: Spoke with Dr. Chu with [facility] cardiology states that this is most likely due to the respiratory distress and demand ischemia versus NSTEMI he does not recommend heparin or anticoagulation at this time. He does recommend trending the troponins and repeating EKG. He states to have cardiology re-involved if there is a significant jump however if they stay relatively stable just continue to treat the respiratory illness. 1851: CT shows no PE, results noted below, will page hospitalist. 1857: Spoke with Dr. Howard who is agreeable to admission for COPD exacerbation and elevated troponin level. Third troponin is 98. Patient to be transported up to the floor for admission for COPD exacerbation. This text was generated using [employer] system, please disregard any oddities of phrase or misspellings. Medical Records Medical records reviewed: Yes I reviewed the patient's medical records. Imaging Data Radiologic Study: Imaging: CT Scan Radiologist's impression: IMPRESSION: 1. No evidence of pulmonary embolism, thoracic aortic dissection or aneurysm. 2. Mild bronchial wall thickening which can be seen with bronchitis. Please correlate clinically. 3. No focal consolidating infiltrates. 4. Right adrenal nodule. Nonemergent MRI without and with contrast is recommended for further evaluation. Lab Data Lab results reviewed: Yes I reviewed the patient's lab results. Labs: Laboratory Tests Range/Units 07/26/24 07/26/24 07/26/24 16:16 16:20 17:15 WBC (4.4-10.8) 10^3/uL 13.46 H RBC (3.93-5.22) 10^6/uL 4.52 Hgb (11.2-15.7) g/dL 13.6 Hct (36.0-46.0) % 41.4 MCV (80-95) fL 92 MCH (27.0-33.0) pg 30.1 MCHC (32.0-36.0) % 32.9 RDW (11.7-14.6) % 13.6 Plt Count (130-400) 10^3/uL 204 MPV (8.0-11.0) fL 10.8 Immature Gran % % 0.7 Neutrophils % % 68.0 Lymphocytes % % 18.3 Monocytes % % 7.5 Eosinophils % % 5.1 Basophils % % 0.4 Nucleated RBC % (0.0-0.3) % 0.0 Absolute Neutrophils (1.2-6.7) 10^3/uL 9.15 H Absolute Lymphocytes (1.2-3.4) 10^3/uL 2.46 Absolute Monocytes (0.1-0.8) 10^3/uL 1.01 H Absolute Eosinophils (0.0-0.7) 10^3/uL 0.69 Absolute Basophils (0.0-0.2) 10^3/uL 0.05 D-Dimer (<500) ng/mlFEU 908 H VBG pH (7.31-7.41) 7.36 VBG pCO2 (41-51) mmHg 52 H VBG pO2 mmHg 43 VBG HCO3 (23-28) mmol/L 29 H VBG Total CO2 (24-29) mmol/L 26 VBG O2 Saturation % 79 VBG Base Excess (-2-3) mmol/L 4 H Sodium (136-145) mmol/L 141 Potassium (3.5-5.1) mmol/L 3.8 Chloride (98-107) mmol/L 103 Carbon Dioxide (21.0-32.0) mmol/L 30.2 Anion Gap (3-11) mmol/L 7.8 BUN (7-18) mg/dL 19 H Creatinine (0.55-1.02) mg/dL 1.0 Est GFR (CKD-EPI 2020) (mL/min/1.73m2) 60.98 Glucose (74-106) mg/dL 221 H Calcium (8.5-10.1) mg/dL 9.7 Magnesium (1.8-2.4) mg/dL 1.6 L Total Bilirubin (0.2-1.0) mg/dL 0.3 AST (15-37) U/L 32 ALT (14-59) U/L 57 Alkaline Phosphatase (46-116) U/L 96 Troponin I (<or=51) ng/L 89 H* 102 H* NT-Pro-B Natriuret Pep (<300) pg/mL 118 Total Protein (6.4-8.2) g/dL 6.7 Albumin (3.4-5.0) g/dL 3.5 COVID-19 Source Nasopharynx SARS-CoV-2 (PCR) (Negative) Negative Influenza Type A (PCR) (Negative) Negative Influenza Type B (PCR) (Negative) Negative RSV (PCR) (Negative) Negative PFSH All Active Problems (Updated 07/26/24 @ 18:58 by Vanessa Pham NP) Elevated troponin I level (Acute) Diabetes (Chronic) COPD exacerbation (Acute) Medical History (Updated 07/26/24 @ 18:58 by Vanessa Pham NP) Reactive airway disease with acute exacerbation Social History Smoking/Tobacco Use Status: Current every day Tobacco Type: cigarettes Smoking risk assessment performed?: Yes Alcohol Intake: never Drug use: Never Substance use type: marijuana Housing: house Do you feel safe at home: Yes Do you feel safe in your relationship?: Yes
[2024-07-26 16:27] LABS: BE (Venous) 4 mmol/L (-2-3); HCO3 (Venous) 29 mmol/L (23-28); O2 Sat (Venous) 79 %; TCO2 (Venous) 26 mmol/L (24-29); pCO2 (Venous) 52 mmHg (41-51); pH (Venous) 7.36 (7.31-7.41); pO2 (Venous) 43 mmHg
[2024-07-26] MEDS: Albuterol/Ipratropium 3 ML UPD VIAL UPD ×2 (16:28→17:08)
[2024-07-26] MEDS: methylPREDNISolone SUCC 125 MG VIAL IVP (16:28)
[2024-07-26 16:34] LABS: Absolute Lymphocyte Count 2.46 10^3/uL (1.2-3.4); Absolute Monocyte Count 1.01 10^3/uL (0.1-0.8); Absolute Neutrophil Count 9.15 10^3/uL (1.2-6.7); Basophils % 0.4 %; Eosinophils % 5.1 %; HCT 41.4 % (36.0-46.0); HGB 13.6 g/dL (11.2-15.7); Immature Grans % 0.7 %; Lymphocytes % 18.3 %; MCH 30.1 pg (27.0-33.0); MCHC 32.9 % (32.0-36.0); MCV 92 fL (80-95); MPV 10.8 fL (8.0-11.0); Monocytes % 7.5 %; Platelet Count 204 10^3/uL (130-400); RBC 4.52 10^6/uL (3.93-5.22); RDW 13.6 % (11.7-14.6); RDW-SD 45.6 fL; WBC 13.46 10^3/uL (4.4-10.8)
--- NOTE | 2024-07-26 16:41 | DI.RAD_ITS ---
Exam(s) XR PORTABLE CHEST AP EXAM: XR PORTABLE CHEST AP CLINICAL HISTORY: SOB TECHNIQUE: 2D digital imaging was performed of the chest. One image was obtained. An AP view was obtained. COMPARISON: CR XR PORTABLE CHEST AP from 05/08/2024 FINDINGS: MEDIASTINUM: Normal. HEART: Normal. PULMONARY VASCULATURE: Normal. LUNGS: Clear. PLEURAL SPACE: No pleural effusion or pneumothorax. BONE:Within normal limits for the patient's age. There is a right convex thoracolumbar scoliosis. OTHER FINDINGS:Normal. IMPRESSION: No acute pulmonary findings. DATA REPOSITORY: RADIATION DOSE DELIVERED:
[2024-07-26 16:46] LABS: Absolute Basophil Count 0.05 10^3/uL (0.0-0.2); Absolute Eosinophil Count 0.69 10^3/uL (0.0-0.7)
[2024-07-26 16:50] LABS: ALT 57 U/L (14-59); AST 32 U/L (15-37); Albumin 3.5 g/dL (3.4-5.0); Alkaline Phosphatase 96 U/L (46-116); Anion Gap 7.8 mmol/L (3-11); BUN 19 mg/dL (7-18); Bilirubin, Total 0.3 mg/dL (0.2-1.0); CO2 30.2 mmol/L (21.0-32.0); Calcium 9.7 mg/dL (8.5-10.1); Chloride 103 mmol/L (98-107); Estimated GFR 60.98 (mL/min/1.73m2); Glucose 221 mg/dL (74-106); Magnesium 1.6 mg/dL (1.8-2.4); Potassium 3.8 mmol/L (3.5-5.1); Sodium 141 mmol/L (136-145); Total Protein 6.7 g/dL (6.4-8.2)
[2024-07-26 16:55] LABS: NT-proBNP 118 pg/mL (<300)
[2024-07-26 16:56] LABS: D-Dimer 908 ng/mlFEU (<500)
[2024-07-26] MEDS: MAGNESIUM SULFATE 1 GM/100 ML BAG IV_INF (16:59)
[2024-07-26 17:00] LABS: Troponin I 89 ng/L (<or=51)
[2024-07-26 17:03] LABS: COVID-19 PCR Negative (Negative); Influenza A PCR Negative (Negative); Influenza B PCR Negative (Negative); RSV PCR Negative (Negative)
[2024-07-26] MEDS: Aspirin 81 MG CHEW 324 MG CH (17:07)
[2024-07-26] MEDS: Normal Saline - Diluent 50 ML VIAL IJ (17:29)
[2024-07-26] MEDS: Omnipaque 350 MG/ML 100 ML BTL 85 ML IJ (17:30)
[2024-07-26 17:32] LABS: Source Nasopharynx
[2024-07-26 17:38] LABS: Troponin I 102 ng/L (<or=51)
--- NOTE | 2024-07-26 17:44 | DI.CT_ITS ---
Exam(s) CT CHEST PE CTA EXAM: CT CHEST PE CTA CLINICAL HISTORY: SOB, Tachycardia. TECHNIQUE: Imaging Protocol: Axial CT angiography was performed with multi- slice acquisition and multi-planar and/or 3D reconstructions. Lung Computer Aided Detection (CAD) was utilized. CONTRAST MATERIAL: Intravenous: Omnipaque 350 contrast volume:85 mL COMPARISON: CT CT CHEST LUNG CANCER SCREEN from 06/10/2022 CR XR PORTABLE CHEST AP from 07/26/2024 FINDINGS: Tracheobronchial tree: Patent where visualized. No bronchiectasis. There is mild bronchial wall thickening present. No mucous plugging is present. Pulmonary parenchyma: Emphysematous changes are present in the lungs. Dependent atelectatic changes are present. No focal consolidating infiltrates are present. Pulmonary Arteries: No evidence of filling defect to suggest pulmonary emboli. Mediastinum and Nallely: No dominant adenopathy or fluid collection. The esophagus is unremarkable. Visualized thyroid gland: Unremarkable. Pleura: No effusion or pneumothorax. Heart: The heart is not dilated. No coronary artery calcifications are seen. There is a small amount of pericardial fluid or pericardial thickening present. Aorta: Thoracic aorta non-dilated. No evidence of dissection. Atherosclerotic calcification is present. Upper abdomen: There is a right adrenal nodule which may represent an adenoma. Nonemergent MRI without and with contrast is recommended for further evaluation. Soft tissues: Unremarkable. Bones: Within normal limits for the patient's age. IMPRESSION: 1. No evidence of pulmonary embolism, thoracic aortic dissection or aneurysm. 2. Mild bronchial wall thickening which can be seen with bronchitis. Please correlate clinically. 3. No focal consolidating infiltrates. 4. Right adrenal nodule. Nonemergent MRI without and with contrast is recommended for further evaluation. Unexpected findings RADIATION DOSE DELIVERED: 83.91mGy.cm Total DLP DATA REPOSITORY: All CT scans at this facility are submitted to the National Radiology Data Registry (NRDR) Dose Index Registry (DIR) with the [employer] (ACR). RADIATION OPTIMIZATION: All CT scans at this facility use at least one of these dose optimization techniques: automated exposure control; mA and/or kV adjustment per patient size (includes targeted exams where dose is matched to clinical indication); or iterative reconstruction.
--- NOTE | 2024-07-26 18:30 | RT.EKG_ITS ---
APPROVED REPORT Exam: Resting ECG Reason for Exam: Repeat Patient Location: E HR:99 bpm ECG Measurements Heart Rate 99 AXIS MO 151 P 70 QRSd 91 QRS 73 QT 364 T 49 QTc 468 Conclusion Sinus rhythm, rate 99 No interval abnormalities No STEMI No significant changes from priors
[2024-07-26 19:36] LABS: Troponin I 98 ng/L (<or=51)
--- NOTE | 2024-07-26 19:50 | W.PM.HP.N ---
Date of service: 07/26/24 Time of Service: 19:50 Assessment and Plan Assessment and plan (1) COPD exacerbation: Status: Acute Assessment and plan: CW inhalers and prednisone 40mg po bid. Did add doxy 2/2 elevated wbc (2) Elevated troponin I level: Status: Acute Assessment and plan: results d/w [facility] cardiology and recommendation is to monitor with serial troponins 1807: [facility] [place] contacted to speak with Cardiology for possible NSTEMI. Discussed updated labs and POC with patient and family, they verbalize understanding. 1835: Spoke with Dr. Chu with [facility] cardiology states that this is most likely due to the respiratory distress and demand ischemia versus NSTEMI he does not recommend heparin or anticoagulation at this time. He does recommend trending the troponins and repeating EKG. He states to have cardiology re-involved if there is a significant jump however if they stay relatively stable just continue to treat the respiratory illness (3) Diabetes: Status: Chronic Assessment and plan: cw semaglutide check a1c [id number] History of Present Illness History of Present Illness Chief Complaint: sob Narrative: This is a 69-year-old female who presented to the ED with worsening shortness of breath over the last couple of days. While she was in the ED ED was noted to have what appeared to be a COPD exacerbation and she was ultimately admitted to the hospital service for further evaluation and treatment. The patient quit smoking approximately 6 months ago and is not on home oxygen. While she is in the ED she was noted to have significant tachypnea as well as oxygen requirement subsequently mated to the hospital service for further evaluation and treatment. While she was in the ED she was also noted to have an elevation in her troponin and ED physician contacted cardiology at [facility] who did not recommend anything besides trending her troponins. Upon my discussion with her she states that having chest pain, jaw pain or arm pain. Pt has a remote history of a stress test but doesn't remember the results or the reason for the procedure Review of Systems All systems reviewed & are unremarkable except as noted in HPI and below PFSH All Active Problems (Updated 07/26/24 @ 18:58 by Vanessa Pham NP) Elevated troponin I level (Acute) Diabetes (Chronic) COPD exacerbation (Acute) Medical History (Updated 07/26/24 @ 18:58 by Vanessa Pham NP) Reactive airway disease with acute exacerbation Social History Smoking/Tobacco Use Status: Current every day Tobacco Type: cigarettes Smoking risk assessment performed?: Yes Alcohol Intake: never Drug use: Never Substance use type: marijuana Housing: house Do you feel safe at home: Yes Do you feel safe in your relationship?: Yes Meds Allergies and Home Medications Allergies Allergy/AdvReac Type Severity Reaction Status Date / Time codeine AdvReac Intermediate Nausea Unverified 07/26/24 15:26 Home Medications ?Medication ?Instructions ?Recorded ?Confirmed ?Type losartan 50 mg tablet 50 mg PO DAILY 06/28/22 05/08/24 History sertraline 50 mg tablet 50 mg PO DAILY 06/28/22 05/08/24 History albuterol sulfate 90 mcg/actuation 2 puff inhalation Q4H PRN 05/08/24 05/08/24 History aerosol inhaler budesonide-formoterol HFA 80 2 puff inhalation BID #10.2 grams 05/09/24 Rx mcg-4.5 mcg/actuation aerosol inhaler (Symbicort) doxycycline hyclate 100 mg capsule 100 mg PO BID #8 caps 05/09/24 Rx guaifenesin 600 mg tablet, 600 mg PO BID #10 tabs 05/09/24 Rx extended release 12 hr ipratropium 20 mcg-albuterol 100 1 puff inhalation Q6H #4 grams 05/09/24 Rx mcg/actuation mist for inhalation prednisone 20 mg tablet 60 mg (3 x 20 mg) PO DAILY #18 tabs 05/09/24 Rx semaglutide 7 mg tablet (Rybelsus) 7 mg PO DAILY 05/09/24 05/09/24 History tiotropium bromide 2.5 2 puff inhalation DAILY #4 grams 05/09/24 Rx mcg/actuation mist for inhalation (Spiriva Respimat) Exam Narrative Exam Narrative: HEENT-NCAT MMM EOMI PERRLA NECK-NO LAD NO JVD CV-RRR NO MRG PULM-BILAT EXPIRATORY WHEEZE, NO AMU, SPEAKING IN COMPLETE SENTENCES [id number]-[id number] EXT-NO CCEB NEURO-CN 2-12 INTACT TESTED PSYCH-AAOX3 Results Labs 07/26/24 16:20 07/26/24 16:20 Labs: Laboratory Results - last 24 hr 06/07/26/24 07/26/24 16:16 16:20 17:15 WBC 13.46 H RBC 4.52 Hgb 13.6 Hct 41.4 MCV 92 MCH 30.1 MCHC 32.9 RDW 13.6 Plt Count 204 MPV 10.8 Immature Gran % 0.7 Neutrophils % 68.0 Lymphocytes % 18.3 Monocytes % 7.5 Eosinophils % 5.1 Basophils % 0.4 Nucleated RBC % 0.0 Absolute Neutrophils 9.15 H Absolute Lymphocytes 2.46 Absolute Monocytes 1.01 H Absolute Eosinophils 0.69 Absolute Basophils 0.05 D-Dimer 908 H VBG pH 7.36 VBG pCO2 52 H VBG pO2 43 VBG HCO3 29 H VBG Total CO2 26 VBG O2 Saturation 79 VBG Base Excess 4 H Sodium 141 Potassium 3.8 Chloride 103 Carbon Dioxide 30.2 Anion Gap 7.8 BUN 19 H Creatinine 1.0 Est GFR (CKD-EPI 2020) 60.98 Glucose 221 H Calcium 9.7 Magnesium 1.6 L Total Bilirubin 0.3 AST 32 ALT 57 Alkaline Phosphatase 96 Troponin I 89 H* 102 H* NT-Pro-B Natriuret Pep 118 Total Protein 6.7 Albumin 3.5 COVID-19 Source Nasopharynx SARS-CoV-2 (PCR) Negative Influenza Type A (PCR) Negative Influenza Type B (PCR) Negative RSV (PCR) Negative 07/26/24 19:15 WBC RBC Hgb Hct MCV MCH MCHC RDW Plt Count MPV Immature Gran % Neutrophils % Lymphocytes % Monocytes % Eosinophils % Basophils % Nucleated RBC % Absolute Neutrophils Absolute Lymphocytes Absolute Monocytes Absolute Eosinophils Absolute Basophils D-Dimer VBG pH VBG pCO2 VBG pO2 VBG HCO3 VBG Total CO2 VBG O2 Saturation VBG Base Excess Sodium Potassium Chloride Carbon Dioxide Anion Gap BUN Creatinine Est GFR (CKD-EPI 2020) Glucose Calcium Magnesium Total Bilirubin AST ALT Alkaline Phosphatase Troponin I 98 H* NT-Pro-B Natriuret Pep Total Protein Albumin COVID-19 Source SARS-CoV-2 (PCR) Influenza Type A (PCR) Influenza Type B (PCR) RSV (PCR) Last Vital Signs Temp 36.7 C 07/26/24 16:24 Pulse 105 H 07/26/24 19:17 Resp 26 H 07/26/24 19:20 BP 152/78 H 07/26/24 19:17 Pulse Ox 93 07/26/24 18:10 Time Spent Time spent with Patient: 40-54 minutes Time was spent: preparing to see the patient(eg.review tests), obtaining and/or reviewing separately otained hiistory, ordering medications,tests, procedures, referring, communicating with other health day care home provider, indepentently interpreting results, counseling the patient and care coordination
[2024-07-26 20:21] LABS: HCT 41.2 % (36.0-46.0); HGB 13.5 g/dL (11.2-15.7); MCH 29.9 pg (27.0-33.0); MCHC 32.8 % (32.0-36.0); MCV 91 fL (80-95); MPV 10.7 fL (8.0-11.0); Platelet Count 195 10^3/uL (130-400); RBC 4.51 10^6/uL (3.93-5.22); RDW 13.6 % (11.7-14.6); RDW-SD 45.6 fL; WBC 10.97 10^3/uL (4.4-10.8)
--- NOTE | 2024-07-26 20:29 | W.PC.ACHO ---
Registration Status: REG ER Primary Language: Preferred Language: ED Information & Data Chief Complaint SOB 07/26/24 16:23 Chief Complaint SOB 07/26/24 16:14 Triage Note PT arrives to ED c/o SOB 07/26/24 15:14 since April but worsening this AM; pt states she was dx w/ pneumonia back in May and has had issues w/ her breathing since. Pt states she had swelling in her feet a few days ago which has since resolved. Pt placed on 2L of O2 in triage. No dx of COPD but prior smoker. 91% on 2L Medical / Surgical History Reactive airway disease with acute exacerbation Most Recent Vital Signs Temperature 36.7 C 07/26/24 16:24 Temperature Source Oral 07/26/24 16:24 Pulse 103 H 07/26/24 19:46 Pulse 113 H 07/26/24 19:50 Respiratory Rate 30 H 07/26/24 19:50 Respiratory Effort Short of Breath 07/26/24 16:49 Respiratory Depth Normal 07/26/24 16:49 Respiratory Pattern Normal 07/26/24 16:49 Blood Pressure 114/44 L 07/26/24 19:46 Blood Pressure Mean 63 07/26/24 19:46 Blood Pressure Position Sitting 07/26/24 16:24 Pulse Oximetry 93 07/26/24 18:10 Oxygen Delivery Method Nasal Cannula 07/26/24 16:24 Oxygen Flow Rate 2 07/26/24 16:24 Pain Level 7 07/26/24 16:24 Allergies codeine Adverse Reaction (Intermediate, Unverified 07/26/24 15:26) Nausea Active Medications Generic Name Dose Route Start Last Admin Trade Name Calebq PRN Reason Stop Dose Admin Iohexol 85 ml 07/26/24 17:30 07/26/24 17:30 Omnipaque 350 Mg/Ml 100 Ml Btl IJ 08/25/24 23:59 85 ml DIRECTED KATHY Administration Sodium Chloride 50 ml 07/26/24 17:30 07/26/24 17:29 Normal Saline - Diluent 50 Ml Vial IJ 50 ml .FOR DI USE KATHY Administration IV IV Catheter Type [Left Peripheral IV Antecubital] IV Catheter Gauge [Left 18 Antecubital] Diet Orders Category Date Time Status Regular/Normal [DIET] Nutrition 07/27/24 Breakfast Ordered Diagnostics 07/26/24 07/26/24 07/26/24 Range/Units 22:59 20:59 20:15 WBC 10.97 H (4.4-10.8) 10^3/uL RBC 4.51 (3.93-5.22) 10^6/uL Hgb 13.5 (11.2-15.7) g/dL Hct 41.2 (36.0-46.0) % MCV 91 (80-95) fL MCH 29.9 (27.0-33.0) pg MCHC 32.8 (32.0-36.0) % RDW 13.6 (11.7-14.6) % Plt Count 195 (130-400) 10^3/uL MPV 10.7 (8.0-11.0) fL Immature Gran % % Neutrophils % % Lymphocytes % % Monocytes % % Eosinophils % % Basophils % % Nucleated RBC % (0.0-0.3) % Absolute Neutrophils (1.2-6.7) 10^3/uL Absolute Lymphocytes (1.2-3.4) 10^3/uL Absolute Monocytes (0.1-0.8) 10^3/uL Absolute Eosinophils (0.0-0.7) 10^3/uL Absolute Basophils (0.0-0.2) 10^3/uL D-Dimer (<500) ng/mlFEU VBG pH (7.31-7.41) VBG pCO2 (41-51) mmHg VBG pO2 mmHg VBG HCO3 (23-28) mmol/L VBG Total CO2 (24-29) mmol/L VBG O2 Saturation % VBG Base Excess (-2-3) mmol/L Sodium (136-145) mmol/L Potassium (3.5-5.1) mmol/L Chloride (98-107) mmol/L Carbon Dioxide (21.0-32.0) mmol/L Anion Gap (3-11) mmol/L BUN (7-18) mg/dL Creatinine (0.55-1.02) mg/dL Est GFR (CKD-EPI 2020) (mL/min/1.73m2) Glucose (74-106) mg/dL Calcium (8.5-10.1) mg/dL Magnesium (1.8-2.4) mg/dL Total Bilirubin (0.2-1.0) mg/dL AST (15-37) U/L ALT (14-59) U/L Alkaline Phosphatase (46-116) U/L Troponin I Pending Pending (<or=51) ng/L NT-Pro-B Natriuret Pep (<300) pg/mL Total Protein (6.4-8.2) g/dL Albumin (3.4-5.0) g/dL COVID-19 Source SARS-CoV-2 (PCR) (Negative) Influenza Type A (PCR) (Negative) Influenza Type B (PCR) (Negative) RSV (PCR) (Negative) 07/26/24 07/26/24 07/26/24 Range/Units 19:59 19:15 17:15 WBC (4.4-10.8) 10^3/uL RBC (3.93-5.22) 10^6/uL Hgb (11.2-15.7) g/dL Hct (36.0-46.0) % MCV (80-95) fL MCH (27.0-33.0) pg MCHC (32.0-36.0) % RDW (11.7-14.6) % Plt Count (130-400) 10^3/uL MPV (8.0-11.0) fL Immature Gran % % Neutrophils % % Lymphocytes % % Monocytes % % Eosinophils % % Basophils % % Nucleated RBC % (0.0-0.3) % Absolute Neutrophils (1.2-6.7) 10^3/uL Absolute Lymphocytes (1.2-3.4) 10^3/uL Absolute Monocytes (0.1-0.8) 10^3/uL Absolute Eosinophils (0.0-0.7) 10^3/uL Absolute Basophils (0.0-0.2) 10^3/uL D-Dimer (<500) ng/mlFEU VBG pH (7.31-7.41) VBG pCO2 (41-51) mmHg VBG pO2 mmHg VBG HCO3 (23-28) mmol/L VBG Total CO2 (24-29) mmol/L VBG O2 Saturation % VBG Base Excess (-2-3) mmol/L Sodium (136-145) mmol/L Potassium (3.5-5.1) mmol/L Chloride (98-107) mmol/L Carbon Dioxide (21.0-32.0) mmol/L Anion Gap (3-11) mmol/L BUN (7-18) mg/dL Creatinine (0.55-1.02) mg/dL Est GFR (CKD-EPI 2020) (mL/min/1.73m2) Glucose (74-106) mg/dL Calcium (8.5-10.1) mg/dL Magnesium (1.8-2.4) mg/dL Total Bilirubin (0.2-1.0) mg/dL AST (15-37) U/L ALT (14-59) U/L Alkaline Phosphatase (46-116) U/L Troponin I Pending 98 H* 102 H* (<or=51) ng/L NT-Pro-B Natriuret Pep (<300) pg/mL Total Protein (6.4-8.2) g/dL Albumin (3.4-5.0) g/dL COVID-19 Source SARS-CoV-2 (PCR) (Negative) Influenza Type A (PCR) (Negative) Influenza Type B (PCR) (Negative) RSV (PCR) (Negative) 07/26/24 07/26/24 Range/Units 16:20 16:16 WBC 13.46 H (4.4-10.8) 10^3/uL RBC 4.52 (3.93-5.22) 10^6/uL Hgb 13.6 (11.2-15.7) g/dL Hct 41.4 (36.0-46.0) % MCV 92 (80-95) fL MCH 30.1 (27.0-33.0) pg MCHC 32.9 (32.0-36.0) % RDW 13.6 (11.7-14.6) % Plt Count 204 (130-400) 10^3/uL MPV 10.8 (8.0-11.0) fL Immature Gran % 0.7 % Neutrophils % 68.0 % Lymphocytes % 18.3 % Monocytes % 7.5 % Eosinophils % 5.1 % Basophils % 0.4 % Nucleated RBC % 0.0 (0.0-0.3) % Absolute Neutrophils 9.15 H (1.2-6.7) 10^3/uL Absolute Lymphocytes 2.46 (1.2-3.4) 10^3/uL Absolute Monocytes 1.01 H (0.1-0.8) 10^3/uL Absolute Eosinophils 0.69 (0.0-0.7) 10^3/uL Absolute Basophils 0.05 (0.0-0.2) 10^3/uL D-Dimer 908 H (<500) ng/mlFEU VBG pH 7.36 (7.31-7.41) VBG pCO2 52 H (41-51) mmHg VBG pO2 43 mmHg VBG HCO3 29 H (23-28) mmol/L VBG Total CO2 26 (24-29) mmol/L VBG O2 Saturation 79 % VBG Base Excess 4 H (-2-3) mmol/L Sodium 141 (136-145) mmol/L Potassium 3.8 (3.5-5.1) mmol/L Chloride 103 (98-107) mmol/L Carbon Dioxide 30.2 (21.0-32.0) mmol/L Anion Gap 7.8 (3-11) mmol/L BUN 19 H (7-18) mg/dL Creatinine 1.0 (0.55-1.02) mg/dL Est GFR (CKD-EPI 2020) 60.98 (mL/min/1.73m2) Glucose 221 H (74-106) mg/dL Calcium 9.7 (8.5-10.1) mg/dL Magnesium 1.6 L (1.8-2.4) mg/dL Total Bilirubin 0.3 (0.2-1.0) mg/dL AST 32 (15-37) U/L ALT 57 (14-59) U/L Alkaline Phosphatase 96 (46-116) U/L Troponin I 89 H* (<or=51) ng/L NT-Pro-B Natriuret Pep 118 (<300) pg/mL Total Protein 6.7 (6.4-8.2) g/dL Albumin 3.5 (3.4-5.0) g/dL COVID-19 Source Nasopharynx SARS-CoV-2 (PCR) Negative (Negative) Influenza Type A (PCR) Negative (Negative) Influenza Type B (PCR) Negative (Negative) RSV (PCR) Negative (Negative) Intake and Output - 24 Hour Total 07/26/24 15:11 thru 07/26/24 15:14 Weight 76.657 kg Falls Risk Assessment History of Falls No History 07/26/24 16:49 Contributing Factors No Factors 07/26/24 16:49 Ambulatory Aids Independent 07/26/24 16:49 Tubes/Lines None 07/26/24 16:49 Gait Evaluation No gait disturbance 07/26/24 16:49 Cognition No cognitive impairment 07/26/24 16:49 Fall Total Score 0 07/26/24 16:49 Level of Risk Standard/Low Risk 07/26/24 16:49 Problems Elevated troponin I level (Acute) Diabetes (Chronic) COPD exacerbation (Acute) v v v v v v v v v Sending and/or Receiving Nurses: Please use comment section below to note any information pertinent to the patient hand-off not included above. Information / Comments: ambulatory, afebrile, AXO4, O2 @ 2LPM: 95% Report received from: Rickie Lema @ 2024 pm
[2024-07-26 20:46] LABS: Troponin I 87 ng/L (<or=51)
[2024-07-26] MEDS: Doxycycline Hyclate 100 MG CAP PO (21:42)
[2024-07-26] MEDS: predniSONE 20 MG TAB 40 MG PO (21:42)
[2024-07-26] MEDS: Enoxaparin 40 MG/0.4 ML SYR SC (21:43)
[2024-07-26] MEDS: guaiFENesin 600 MG TABCR PO (21:53)
[2024-07-26 22:05] LABS: Troponin I 71 ng/L (<or=51)
[2024-07-26] MEDS: Ipratropium/Albuterol 4 GM 120 PUFF INH IH (22:32)
[2024-07-26] MEDS: Budesonide/Formoterol 80/4.5 6.9 GM 60 PUFF INH IH (22:33)
[2024-07-26 23:48] LABS: Troponin I 55 ng/L (<or=51)
[2024-07-27 00:49] VITALS: BP 122/76; PULSE 95; RESP 18; TEMP 36.2; O2SAT 93
[2024-07-27] MEDS: Ipratropium/Albuterol 4 GM 120 PUFF INH IH ×2 (03:04→08:44)
[2024-07-27 03:35] VITALS: BP 110/71; PULSE 93; RESP 19; TEMP 36.2; O2SAT 96
[2024-07-27 06:50] LABS: Abs Immature Grans 0.04 10^3/uL (0.0-0.06); Absolute Basophil Count 0.02 10^3/uL (0.0-0.2); Absolute Eosinophil Count 0.01 10^3/uL (0.0-0.7); Absolute Monocyte Count 0.19 10^3/uL (0.1-0.8); Basophils % 0.2 %; Eosinophils % 0.1 %; HGB 12.7 g/dL (11.2-15.7); Immature Grans % 0.4 %; Lymphocytes % 9.7 %; MCH 29.5 pg (27.0-33.0); MCHC 32.6 % (32.0-36.0); MCV 91 fL (80-95); MPV 10.9 fL (8.0-11.0); Monocytes % 1.7 %; Neutrophils % 87.9 %; Platelet Count 190 10^3/uL (130-400); RBC 4.31 10^6/uL (3.93-5.22); RDW 13.3 % (11.7-14.6); WBC 11.34 10^3/uL (4.4-10.8)
[2024-07-27 06:52] LABS: Absolute Neutrophil Count 9.97 10^3/uL (1.2-6.7)
[2024-07-27 07:07] LABS: ALT 51 U/L (14-59); AST 19 U/L (15-37); Albumin 3.5 g/dL (3.4-5.0); Alkaline Phosphatase 79 U/L (46-116); Anion Gap 9.2 mmol/L (3-11); BUN 23 mg/dL (7-18); Bilirubin, Total 0.3 mg/dL (0.2-1.0); CO2 27.8 mmol/L (21.0-32.0); CREATININE 1.2 mg/dL (0.55-1.02); Chloride 99 mmol/L (98-107); Glucose 339 mg/dL (74-106); Potassium 4.4 mmol/L (3.5-5.1); Sodium 136 mmol/L (136-145); Total Protein 6.7 g/dL (6.4-8.2)
[2024-07-27 07:34] VITALS: BP 123/69; PULSE 96; RESP 18; TEMP 36.9; O2SAT 93
[2024-07-27] MEDS: predniSONE 20 MG TAB 40 MG PO (08:36)
[2024-07-27] MEDS: Losartan 50 MG TAB PO (08:37)
[2024-07-27] MEDS: Sertraline 50 MG TAB PO (08:37)
[2024-07-27] MEDS: Doxycycline Hyclate 100 MG CAP PO (08:37)
[2024-07-27] MEDS: guaiFENesin 600 MG TABCR PO (08:37)
[2024-07-27] MEDS: Tiotropium Bromide-Respimat 10 PUFF INH 2 PUFF IH (08:43)
[2024-07-27] MEDS: Budesonide/Formoterol 80/4.5 6.9 GM 60 PUFF INH IH (08:43)
[2024-07-27 08:47] VITALS: O2SAT 95
--- NOTE | 2024-07-27 12:05 | W.PM.DS.N ---
Date of service: 07/27/24 Time of Service: 12:05 DS: Diagnosis Discharge Diagnosis (1) COPD exacerbation: Status: Acute (2) Elevated troponin I level: Status: Acute (3) Diabetes: Status: Chronic (4) Adrenal nodule: Status: Acute Discharge Plan Disposition Patient Disposition: Home Condition: Improving Discharge Details Reason For Visit: copd exacerbation Admit Date/Time: 07/26/24 19:25 Admit Provider: Branden Howard Attending Provider: Branden Howard Primary Care Provider: Charlene Pool Hospital Course Hospital Course: 69-year-old female with COPD, type 2 DM with A1c 7.0%, and hypertension who presented to the ED with worsening shortness of breath over the last couple of days. ED evaluation was significant for elevated troponin, serial EKGs showed improving sinus tachycardia but no ischemic changes. cardiology was consulted who did no recommend further intervention for type 2 stress ischemia. Troponin 89 at presentation, peaked at 102 at 1 hour, then declined down to 55 by that evening. Her pCO2 was 52 on admission but her pH was normal suggesting some chronic retention. CTA showed: 1. No evidence of pulmonary embolism, thoracic aortic dissection or aneurysm. 2. Mild bronchial wall thickening which can be seen with bronchitis. Please correlate clinically. 3. No focal consolidating infiltrates. 4. Right adrenal nodule. Nonemergent MRI without and with contrast is recommended for further evaluation. She was admitted and treated with methyprednisolone and doxycycline along with nebulized broncholidators. She improved and was comfortable on room air the next day. She was discharged with 5 days of doxycycline and a prednisone taper. ICS/LABA and LAMA inhalers were continued. She thought allergies were a trigger and daily loratidine was recommended. She was already taking rosuvastatin and 81mg ASA to moderate her cardiac risk. We discussed follow up testing given her elevated troponins. Her recent LDL was <70. Magnesium was low and was supplemented Follow up: 1 week to follow respiratory status. Review of triggers including allergies Follow up on blood sugar. Follow up on coronary risk given elevated troponin, stress test or coronary CT? Follow up on right adrenal nodule. Recommendations for Follow Up Recommended tests to be ordered by follow up provider: PFTs should be considered when at baseline given 2 recent COPD exacerbations. MRI w/wo adrenal magnesium and BMP for renal function. Home Meds and New Rx's Prescriptions: New rosuvastatin 5 mg tablet 5 mg PO DAILY Qty: 30 0RF aspirin 81 mg tablet 81 mg PO DAILY Qty: 90 0RF loratadine 10 mg tablet 10 mg PO DAILY Qty: 90 0RF Continued albuterol sulfate 90 mcg/actuation HFA aerosol inhaler 2 puff INHALATION Q4H PRN Patient Comments: INHALE TWO PUFFS BY MOUTH EVERY 4 HOURS NEEDED FOR WHEEZE budesonide-formoterol [Symbicort] 80-4.5 mcg/actuation HFA aerosol inhaler 2 puff inhalation BID Qty: 10.2 0RF Rx Instructions: in with hypercapnic hypoxic respiratory failure most likely d/t COPD exacerbation ipratropium-albuterol 20-100 mcg/actuation mist 1 puff inhalation Q6H Qty: 4 0RF guaifenesin 600 mg tablet extended release 12hr 600 mg PO BID Qty: 10 0RF Spiriva Respimat 2.5 mcg/actuation Mist 2 puff inhalation DAILY Qty: 4 0RF Rybelsus 7 mg tablet 7 mg PO DAILY Patient Comments: TAKE ONE TABLET BY MOUTH EVERY DAY IN THE MORNING FOR TYPE 2 DIABETES doxycycline hyclate 100 mg capsule 100 mg PO BID Qty: 8 0RF losartan 50 mg Tablet 50 mg PO DAILY sertraline 50 mg Tablet 50 mg PO DAILY Changed prednisone 20 mg tablet See Taper PO DAILY Qty: 13 0RF Taper: Prednisone 20mg taper 40 mg Daily for 3 Days and 0 Hour 20 mg Daily for 3 Days and 0 Hour 10 mg Daily for 4 Days and 0 Hour Discharge Instructions Instructions: Chronic Obstructive Pulmonary Disease (COPD) (DC) Additional Instructions: Take the prednisone taper and doxycycline as above. Daily allergy medication loratadine may help. Daily magnesium supplement would be a good idea, over the counter. Talk to Charlene about a stress test or coronary artery CT to assess your heart. You should also get lung function testing and an MRI for the adrenal nodule we saw on CT scan. Activity:: Activity as Tolerated Equipment/Supplies:: No Equipment Needed Diet:: Carb Counting Discharge Orders Discharge Orders: Discharge Order (Routine); Ordered 07/27/24 Ordered By: Karan Stewart DS: Summary Time Spent with Patient providing and/or coordinating discharge services: Greater than 30 minutes Status at Discharge Functional status at discharge: independent ambulation Overall status at discharge: patient is back to baseline Mental Status: mental status grossly normal Speech and Movement: speech and movement normal Mood: congruent mood Affect: normal affect Exam Narrative Exam Narrative: GEN: alert and oriented, NAD CV-RRR NO MRG PULM- slight diffuse wheeze, NO AMU, SPEAKING IN COMPLETE SENTENCES EXT-NO CCE bilaterally Psych Mental Status: mental status grossly normal Speech and Movement: speech and movement normal Mood: congruent mood Affect: normal affect DS: Data Vitals/I&O Vitals and I&O: Vital Signs Temperature 36.9 C 07/27/24 07:34 Temperature Source Temporal Artery Scan 07/27/24 07:34 Pulse 96 H 07/27/24 07:34 Pulse Rhythm Regular 07/26/24 21:04 Pulse 113 H 07/26/24 19:50 Respiratory Rate 18 07/27/24 07:34 Respiratory Effort Normal 07/26/24 21:04 Respiratory Depth Normal 07/26/24 21:04 Respiratory Pattern Normal 07/26/24 21:04 Blood Pressure 123/69 07/27/24 07:34 Blood Pressure Mean 87 07/27/24 07:34 Blood Pressure Position Sitting 07/26/24 16:24 Pulse Oximetry 95 07/27/24 08:47 Oxygen Delivery Method Room Air 07/27/24 08:47 Oxygen Flow Rate 0 07/27/24 08:47 Pain Level 0 07/27/24 11:43 Intake & Output 07/26/24 07/27/24 07/27/24 23:59 11:59 23:59 Intake Total 500 / 500 480 / 480 Balance 500 / 500 480 / 480 Weight 76.657 kg 86.636 kg Intake: Oral 500 / 500 480 / 480 Data Completed and Pending Labs on day of discharge: Labs from last 24 hours 07/27/24 07/27/24 07/26/24 Unknown 06:27 23:10 WBC 11.34 H RBC 4.31 Hgb 12.7 Hct 39.0 MCV 91 MCH 29.5 MCHC 32.6 RDW 13.3 Plt Count 190 MPV 10.9 Immature Gran % 0.4 Neutrophils % 87.9 Lymphocytes % 9.7 Monocytes % 1.7 Eosinophils % 0.1 Basophils % 0.2 Nucleated RBC % 0.0 Absolute Neutrophils 9.97 H Absolute Lymphocytes 1.10 L Absolute Monocytes 0.19 Absolute Eosinophils 0.01 Absolute Basophils 0.02 D-Dimer VBG pH VBG pCO2 VBG pO2 VBG HCO3 VBG Total CO2 VBG O2 Saturation VBG Base Excess Sodium 136 Potassium 4.4 Chloride 99 Carbon Dioxide 27.8 Anion Gap 9.2 BUN 23 H Creatinine 1.2 H Est GFR (CKD-EPI 2020) 49.00 Glucose 339 H Calcium 9.0 Magnesium Total Bilirubin 0.3 AST 19 ALT 51 Alkaline Phosphatase 79 Troponin I 55 H* NT-Pro-B Natriuret Pep Total Protein 6.7 Albumin 3.5 COVID-19 Source SARS-CoV-2 (PCR) Influenza Type A (PCR) Influenza Type B (PCR) RSV (PCR) Add-On Test Request Pending 07/26/24 07/26/24 07/26/24 21:40 20:15 19:15 WBC 10.97 H RBC 4.51 Hgb 13.5 Hct 41.2 MCV 91 MCH 29.9 MCHC 32.8 RDW 13.6 Plt Count 195 MPV 10.7 Immature Gran % Neutrophils % Lymphocytes % Monocytes % Eosinophils % Basophils % Nucleated RBC % Absolute Neutrophils Absolute Lymphocytes Absolute Monocytes Absolute Eosinophils Absolute Basophils D-Dimer VBG pH VBG pCO2 VBG pO2 VBG HCO3 VBG Total CO2 VBG O2 Saturation VBG Base Excess Sodium Potassium Chloride Carbon Dioxide Anion Gap BUN Creatinine Est GFR (CKD-EPI 2020) Glucose Calcium Magnesium Total Bilirubin AST ALT Alkaline Phosphatase Troponin I 71 H* 87 H* 98 H* NT-Pro-B Natriuret Pep Total Protein Albumin COVID-19 Source SARS-CoV-2 (PCR) Influenza Type A (PCR) Influenza Type B (PCR) RSV (PCR) Add-On Test Request 07/26/24 07/26/24 07/26/24 17:15 16:20 16:16 WBC 13.46 H RBC 4.52 Hgb 13.6 Hct 41.4 MCV 92 MCH 30.1 MCHC 32.9 RDW 13.6 Plt Count 204 MPV 10.8 Immature Gran % 0.7 Neutrophils % 68.0 Lymphocytes % 18.3 Monocytes % 7.5 Eosinophils % 5.1 Basophils % 0.4 Nucleated RBC % 0.0 Absolute Neutrophils 9.15 H Absolute Lymphocytes 2.46 Absolute Monocytes 1.01 H Absolute Eosinophils 0.69 Absolute Basophils 0.05 D-Dimer 908 H VBG pH 7.36 VBG pCO2 52 H VBG pO2 43 VBG HCO3 29 H VBG Total CO2 26 VBG O2 Saturation 79 VBG Base Excess 4 H Sodium 141 Potassium 3.8 Chloride 103 Carbon Dioxide 30.2 Anion Gap 7.8 BUN 19 H Creatinine 1.0 Est GFR (CKD-EPI 2020) 60.98 Glucose 221 H Calcium 9.7 Magnesium 1.6 L Total Bilirubin 0.3 AST 32 ALT 57 Alkaline Phosphatase 96 Troponin I 102 H* 89 H* NT-Pro-B Natriuret Pep 118 Total Protein 6.7 Albumin 3.5 COVID-19 Source Nasopharynx SARS-CoV-2 (PCR) Negative Influenza Type A (PCR) Negative Influenza Type B (PCR) Negative RSV (PCR) Negative Add-On Test Request PFSH All Active Problems (Updated 07/27/24 @ 12:06 by Karan Stewart) Adrenal nodule (Acute) Elevated troponin I level (Acute) Diabetes (Chronic) COPD exacerbation (Acute) Medical History (Updated 07/27/24 @ 12:06 by Karan Stewart) Reactive airway disease with acute exacerbation Social History Smoking/Tobacco Use Status: Current every day Tobacco Type: cigarettes Smoking risk assessment performed?: Yes Alcohol Intake: never Drug use: Never Substance use type: marijuana Housing: house Do you feel safe at home: Yes Do you feel safe in your relationship?: Yes Time Spent with Patient Time Spent with Patient: <45 minutes Time was spent: preparing to see the patient(eg.review tests), obtaining and/or reviewing separately otained hiistory, ordering medications,tests, procedures, referring, communicating with other health day care provider, indepentently interpreting results, counseling the patient and care coordination
--- NOTE | 2024-07-27 12:18 | PDOC.CMIN ---
Date of service: 07/27/24 Time of Service: 12:18 Care Management Initial Assmt Initial Assessment Reason for Hospitalization: COPD Exacerbation Functional Status/Living Situation Town of Residence: [place] Resides with: Spouse ( Richar Burk) Medications Medication Management: No Issues/Barriers identified Advance Directives Advance Directives: Do you have an Advance Directive: N 06/07/22, 14:00 AD On File at [facility]: N 12/29/21, 16:08 Date Asked 07/26/24 07/26/24, 20:44 AD Date Reviewed COLST On File at [facility] COLST Date Scanned Code Status Resuscitation Status Full Code Insurance Coverage/Financial Issues Insurance: BC/BS Medicare Advantage Care Team Visit Care Team Role Provider Type Karan Stewart MD [facility] STAFF PHYSICIAN Charlene Pool Primary Care Provider NURSE PRACTITIONER Carleen Mayorga Other Providers HIDE PASTER Erin Avilez Other Providers HIDE PASTER Chaparrita Enrique Other Providers HIDE PASTER Verna Santiago RN Other Providers HIDE PASTER Amber Howard Other Providers HIDE PASTER Vanessa Pham NP Emergency Provider NURSE PRACTITIONER Branden Howard MD Admit Provider [facility] STAFF PHYSICIAN Attending Provider Discharge Potential Discharge Needs: PCP F/U Appt Anticipated Barriers to Discharge: None Identified Patient/Family Education Needs: Review discharge instructions, discuss Ask Me Three Transportation: Private vehicle Plan: Anticipate Jenny will be discharged home with no new services. She will follow up with her PCP and plan of care and transport with family. CM will follow. Social Determinants of Health Screening Social Determinants of health last assessed in clinic: 07/26/24 Will the Patient Participate in the Screening?: Yes Do you worry about having a steady place to live?: no Problems where you live: no known problems In the past 12 months, have you had to go without electric, gas, oil or water in your home?: no Has lack of transportation kept you from medical appointments or from doing things needed for daily living?: no Has anyone in your life made you feel unsafe or unsupported?: no How hard is it for you to pay for the very basics like food, housing, medical care, and heating? Would you say it is:: Not hard at all Do you want help finding or keeping work or a job?: I do not need or want help If for any reason you need help with day-to-day activities such as bathing, preparing meals, shopping, managing finances, etc., do you get the help you need?: I don?t need any help How often do you feel lonely or isolated from those around you?: Never Do you speak a language other than Danish at home?: No Does the patient want assistance with any of the above?: No PFSH All Active Problems (Updated 07/27/24 @ 12:06 by Karan Stewart) Adrenal nodule (Acute) Elevated troponin I level (Acute) Diabetes (Chronic) COPD exacerbation (Acute) Medical History (Updated 07/27/24 @ 12:06 by Karan Stewart) Reactive airway disease with acute exacerbation Social History Smoking/Tobacco Use Status: Current every day Tobacco Type: cigarettes Smoking risk assessment performed?: Yes Alcohol Intake: never Drug use: Never Substance use type: marijuana Housing: house Do you feel safe at home: Yes Do you feel safe in your relationship?: Yes
[2024-07-27 12:26] LABS: Lab Add On Test DONE
[2024-07-27 12:52] LABS: Magnesium 1.8 mg/dL (1.8-2.4)
--- NOTE | 2024-07-27 13:22 | PDOC.CMPRO ---
Date of service: 07/27/24 Time of Service: 13:22 Care Management Progress Note Progress Note Text Progress Note Text: Jenny was admitted on 07/26/24 with a COPD exacerbation. She was initially hypoxic, requiring 2L/min of nasal O2 and she was also tachycardic with a heartrate in the 100-110 range. Jenny was treated with steroids, nebulizers and antibiotics and felt much better this morning. She was able to be weaned off oxygen and her Hr returned to the 90s. She was discharged home before was able to meet with her, however no new services were needed. Discharge Potential Discharge Needs: PCP F/U Appt Anticipated Barriers to Discharge: None Identified Patient/Family Education Needs: Review discharge instructions, discuss Ask Me Three Transportation: Private vehicle Plan: Jenny will be discharged home with no new services. She will follow up with her PCP and plan of care and transport with family. Social Determinants of Health Screening Social Determinants of health last assessed in clinic: 07/27/24 Will the Patient Participate in the Screening?: Yes Do you worry about having a steady place to live?: no Problems where you live: no known problems In the past 12 months, have you had to go without electric, gas, oil or water in your home?: no 1. Within the past 12 months, we worried whether our food would run out before we got money to buy more.: Never true 2. Within the past 12 months, the food we bought just didn't last and we didn't have money to get more.: Never true Has lack of transportation kept you from medical appointments or from doing things needed for daily living?: no Has anyone in your life made you feel unsafe or unsupported?: no How hard is it for you to pay for the very basics like food, housing, medical care, and heating? Would you say it is:: Not hard at all Do you want help finding or keeping work or a job?: I do not need or want help If for any reason you need help with day-to-day activities such as bathing, preparing meals, shopping, managing finances, etc., do you get the help you need?: I don?t need any help How often do you feel lonely or isolated from those around you?: Never Do you speak a language other than Cypriot at home?: No Does the patient want assistance with any of the above?: No
== END 2024-07-27 13:11 | disposition home or self-care (01) | DRG 191 ==
LOC: ER 18:58 → MS 20:42
PROVIDERS: Admitting Provider Hospitalist; Emergency Provider Registered Nurse Emergency; PCP Nurse Practitioner Family; Responsible Provider Family Medicine; Visit Provider Hospitalist
DX: J44.1 Chronic obstructive pulmonary disease with (acute) exacerbation (principal); I24.89 Other forms of acute ischemic heart disease; E11.9 Type 2 diabetes mellitus without complications; E27.8 Other specified disorders of adrenal gland; F12.90 Cannabis use, unspecified, uncomplicated; E83.42 Hypomagnesemia; Z79.84 Long term (current) use of oral hypoglycemic drugs; Z87.891 Personal history of nicotine dependence; Z79.899 Other long term (current) drug therapy
CPT/HCPCS: 00123; 36415; 71275; 80053; 82805; 85027; 87637; 93005; 94640; 96365; 96375; 99285; J1650; 71045; 83735; 83880; 84484; 85025; 85379; 93010; 94664; 94760; 99222; 99239; J2919; J3475; J3490; J7512; J7620

== ENCOUNTER 2024-08-05 18:39 | Outpatient (REF) | payer MEDICARE, SELFPAY ==
[2024-08-05 20:22] LABS: COMMENT (LAB VIEW ONLY) 59.76 mg/dL
[2024-08-05 20:29] LABS: Microalb ug/mg Crea 927.7 ug/mg Cr
== END 2024-08-05 18:40 | disposition home or self-care (01) ==
LOC: NCHCN 18:39
PROVIDERS: PCP Nurse Practitioner Family; Visit Provider Nurse Practitioner Family
DX: R39.15 Urgency of urination (principal)
CPT/HCPCS: 87077; 82043; 82570; 87086; 87186

== ENCOUNTER 2024-10-01 08:27 | Outpatient (CLI) | payer MEDICARE, SELFPAY ==
--- NOTE | 2024-10-01 | DI.MRI_ITS ---
Exam(s) MR ABDOMEN WO/W EXAM: MR ABDOMEN WO/W CLINICAL HISTORY: DISORDER OF ADRENAL GLAND, E27.9 TECHNIQUE: Multiplanar multisequence MRI of the Abdomen was performed. CONTRAST MATERIAL: IV Contrast: 15 mL of Dotarem contrast administered. COMPARISON: CT CT CHEST LUNG CANCER SCREEN from 06/10/[address] CHEST PE CTA from 07/26/2024 FINDINGS: Lung bases: There is a stable small infiltrate in the right middle lobe. Liver: There is fatty infiltration of the liver. There is no suspicious hepatic mass present. Pancreas: Unremarkable. Gallbladder and Bile Ducts: There are no gallstones. There is no biliary ductal dilatation. Adrenals: There is a 1.9 x 1.5 cm right adrenal nodule. There is loss of signal on the opposed phase images. The findings are most suggestive of an adrenal adenoma. Kidneys: There is no evidence of obstructive uropathy. There are bilateral renal cysts which are simple. The largest is on the left kidney and measures 2.0 x 1.5 cm. No follow-up is recommended. There are no suspicious renal masses. Spleen: Unremarkable. Bowel: There is diverticulosis seen in the colon. There is no evidence of bowel obstruction or bowel wall thickening. Aorta: Unremarkable. Soft Tissues: Unremarkable. Bone: Age-appropriate degenerative changes are seen in the spine. There is an S-type thoracolumbar scoliosis. Lymph Nodes: Unremarkable. IMPRESSION: 1. Findings most suggestive of a 1.9 x 1.5 right adrenal adenoma. 2. Hepatic steatosis. DATA REPOSITORY:
[2024-10-01] MEDS: Gadoterate meglumine 20 ML VIAL IVP (09:12)
[2024-10-01] MEDS: Normal Saline - Diluent 50 ML VIAL 25 ML IJ (09:13)
== END 2024-10-01 08:47 ==
PROVIDERS: PCP Nurse Practitioner Family; Visit Provider Nurse Practitioner Family
DX: E27.9 Disorder of adrenal gland, unspecified (principal); K76.0 Fatty (change of) liver, not elsewhere classified
CPT/HCPCS: 74183

== ENCOUNTER 2024-10-29 16:13 | Inpatient (IN) | payer MEDICARE, SELFPAY ==
[2024-10-29] VITALS (55 sets, daily range): BP systolic 93–133; BP diastolic 53–98; PULSE 96–117; RESP 16–32; TEMP 36.5–36.8; O2SAT 89–99
--- NOTE | 2024-10-29 16:00 | RT.EKG_ITS ---
APPROVED REPORT Exam: Resting ECG Reason for Exam: sob Patient Location: E HR:110 bpm ECG Measurements Heart Rate [address] 152 P 79 QRSd 86 QRS 92 QT 329 T 42 QTc 446 Conclusion Sinus tachycardia, rate 110 No interval abnormalities No STEMI Q wave V1, unchanged from prior
--- NOTE | 2024-10-29 16:27 | DI.RAD_ITS ---
Exam(s) XR CHEST 2V PA LATERAL EXAM: XR CHEST 2V PA LATERAL CLINICAL HISTORY: chest pain, shortness of breath TECHNIQUE: 2D digital imaging was performed of the chest. Two images were obtained. PA and lateral views were obtained. COMPARISON: CR XR PORTABLE CHEST AP from 05/08/2024 CR XR PORTABLE CHEST AP from 07/26/2024 FINDINGS: MEDIASTINUM: Normal. HEART: Normal. PULMONARY VASCULATURE: Normal. LUNGS: There are no focal consolidating infiltrates. The lungs appear hyperinflated suggesting underlying COPD. PLEURAL SPACE: No pleural effusion or pneumothorax. BONE:Within normal limits for the patient's age. There is a right convex lower thoracic right convex scoliosis. OTHER FINDINGS:Normal. IMPRESSION: No focal consolidating infiltrates. DATA REPOSITORY: RADIATION DOSE DELIVERED:
[2024-10-29] MEDS: Normal Saline 500 ML IV ×2 (17:08→18:57)
[2024-10-29 17:10] LABS: Abs Immature Grans 0.05 10^3/uL (0.0-0.06); HCT 42.3 % (36.0-46.0); HGB 13.6 g/dL (11.2-15.7); Immature Grans % 0.4 %; MCH 29.2 pg (27.0-33.0); MCHC 32.2 % (32.0-36.0); MCV 91 fL (80-95); MPV 10.4 fL (8.0-11.0); Platelet Count 232 10^3/uL (130-400); RBC 4.65 10^6/uL (3.93-5.22); RDW 13.7 % (11.7-14.6); RDW-SD 45.7 fL; WBC 13.49 10^3/uL (4.4-10.8)
[2024-10-29 17:11] LABS: BE (Venous) 1 mmol/L (-2-3); HCO3 (Venous) 26 mmol/L (23-28); O2 Sat (Venous) 92 %; TCO2 (Venous) 24 mmol/L (24-29); pCO2 (Venous) 47 mmHg (41-51); pO2 (Venous) 62 mmHg
[2024-10-29 17:40] LABS: ALT 32 U/L (14-59); AST 21 U/L (15-37); Albumin 3.7 g/dL (3.4-5.0); Alkaline Phosphatase 76 U/L (46-116); Anion Gap 11.9 mmol/L (3-11); BUN 16 mg/dL (7-18); Bilirubin, Total 0.4 mg/dL (0.2-1.0); CO2 27.1 mmol/L (21.0-32.0); Calcium 9.2 mg/dL (8.5-10.1); Chloride 105 mmol/L (98-107); Estimated GFR 93.56 (mL/min/1.73m2); Glucose 138 mg/dL (74-106); Magnesium 2.4 mg/dL (1.8-2.4); Potassium 3.5 mmol/L (3.5-5.1); Sodium 144 mmol/L (136-145); Total Protein 7.3 g/dL (6.4-8.2)
[2024-10-29] MEDS: Albuterol/Ipratropium 3 ML UPD VIAL (18:19)
[2024-10-29] MEDS: DOXYCYCLINE 100 MG in Normal Saline 100 ML IVPB (18:30)
[2024-10-29 18:40] LABS: NT-proBNP 261 pg/mL (<300)
[2024-10-29 18:41] LABS: Troponin I 156 ng/L (<or=51)
[2024-10-29] MEDS: Aspirin 81 MG CHEW 324 MG CH (18:56)
[2024-10-29 19:06] LABS: Troponin I 344 ng/L (<or=51)
[2024-10-29 20:28] LABS: Troponin I 406 ng/L (<or=51)
--- NOTE | 2024-10-29 20:30 | RT.EKG_ITS ---
APPROVED REPORT Exam: Resting ECG Reason for Exam: sweaty and shaky Patient Location: E HR:94 bpm ECG Measurements Heart Rate 94 AXIS [place] 156 P 72 QRSd 91 QRS 75 QT 377 T 82 QTc 473 Conclusion Sinus rhythm, rate 94 No interval abnormalities No STEMI No significant changes from priors
--- NOTE | 2024-10-29 20:42 | W.PM.HP.N ---
Date of service: 10/29/24 Time of Service: 20:42 Assessment and Plan Assessment and plan (1) COPD exacerbation: Start date: 10/29/24 Status: Acute Assessment and plan: This is a 69-year-old lady who quit smoking just this year in February who is having recurrent episodes of exacerbation of COPD. She has a diagnosis of mainly emphysema through [facility] but did have a history of asthma as a child does have some CO2 retention with her first 2 episodes in May and July of this year. She is not on home O2 or chronic steroids. She is having another episode of exacerbation which worsened over 2 days with some hyperventilation and numbness over her body prior to presentation. She is requiring O2 and frequent nebulizer treatments and continues to wheeze. She states at baseline her wheeze never goes away. She is followed closely at [facility] pulmonology. She will be admitted for IV Solu-Medrol, frequent nebulizer treatments and IV doxycycline. She also has oxygen needs which will be monitored with weaning before discharge. She hopefully will have less of these episodes as the months pass off cigarette smoke. There are no secondary smokers around the patient. She is a full code. (2) Elevated troponin I level: Start date: 10/29/24 Status: Acute Assessment and plan: The patient had previous elevation of her troponins but not as elevated as this presentation. [facility] cardiology does plan to do a nuclear stress test as an outpatient and states concerns are no acute ischemic changes on EKG the patient to be treated for her respiratory symptoms with trending of the troponins. She is already on aspirin. She also takes a statin. She is not on a beta-siada but is not hypertensive. (3) Diabetes: Status: Chronic Assessment and plan: Glucometer measurements before meals and bedtime with sensitive sliding scale coverage. Hold GLP-1 agonist. (4) Anxiety disorder: Status: Chronic Assessment and plan: The patient is on sertraline chronically which will be continued. Will avoid benzodiazepine for the patient not being prescribed Ativan routinely as an outpatient but did have 1 prescription for a probable preprocedure dosing. PDMP was reviewed. There does not appear to be risk for self treatment. (5) HTN (hypertension): Status: Chronic Assessment and plan: Continue outpatient medical therapy. Consider beta-saida if tachycardia persist. (6) HLD (hyperlipidemia): Status: Chronic Assessment and plan: Continue outpatient medical therapy. History of Present Illness History of Present Illness Chief Complaint: Worsening respiratory distress at home with wheezing now requiring oxygen. Narrative: This is a 69-year-old female patient who quit smoking in February 2024 after a 40-year history of smoking and asthma as a child. She does see pulmonology at [facility] and was told that she has emphysema. She did have asthma as a child. She was hospitalized in May 2024 at this hospital for hypoxic and hypercapnic respiratory failure with pneumonia. She was again hospitalized in July 2024 with a less severe episode. She presents this admission with a 2-day history of worsening shortness of breath and wheezing with chest tightness from her wheezing and severe dyspnea. She was tripoding at the time her called for EMS. She does not wear home oxygen. She is not chronically on steroids. She denied any fever. She did have numbness over her entire body because of her shortness of breath. EMS did respond and did treat her with a nebulizer treatment, Decadron and IV magnesium. The patient was slowly improving in the ED but continued to require oxygen and frequent nebulizer treatments. VBG did not reveal any CO2 retention as per previous hospitalizations but she was hypoxic. She did have some respiratory acidosis. Her troponins were checked and were elevated more than her last hospitalization in July though not rising quickly. [facility] cardiology was consulted and advised again not to intervene think this was secondary with patient already having an outpatient nuclear stress test scheduled with follow-up at [facility]. She had no acute EKG changes. She was tachycardic and tachypneic upon presentation. She did have an elevated WBC but imaging did not reveal any infiltrates this hospitalization. She was given doxycycline for possible bronchitis. Patient will be admitted for continued respiratory treatments with need for frequent nebulizers, close monitoring on O2 supplement which is a new problem and continues to have some difficulty with full sentences at the time I saw her. She is a full code. Review of Systems Narrative: 13 point review of systems otherwise unrevealing or stable. Patient denies any urinary symptoms. She has had no significant peripheral edema or weight gain. PFSH All Active Problems (Updated 10/29/24 @ 20:47 by Sanford Martinez) HTN (hypertension) (Chronic) HLD (hyperlipidemia) (Chronic) Anxiety disorder (Chronic) Adrenal nodule (Acute) Elevated troponin I level (Acute) Diabetes (Chronic) COPD exacerbation (Acute) Medical History Reactive airway disease with acute exacerbation Social History Smoking/Tobacco Use Status: Current every day Tobacco Type: cigarettes Smoking risk assessment performed?: Yes Alcohol Intake: never Drug use: Never Housing: house Do you feel safe at home: Yes Do you feel safe in your relationship?: Yes Meds Allergies and Home Medications Allergies Allergy/AdvReac Type Severity Reaction Status Date / Time codeine AdvReac Intermediate Nausea Unverified 07/26/24 15:26 metformin AdvReac Intermediate Diarrhea Verified 08/05/24 16:06 Home Medications ?Medication ?Instructions ?Recorded ?Confirmed ?Type sertraline 50 mg tablet 50 mg PO DAILY 06/28/22 10/29/24 History albuterol sulfate 90 mcg/actuation 2 puff inhalation Q4H PRN 05/08/24 10/29/24 History aerosol inhaler budesonide-formoterol HFA 80 2 puff inhalation BID #10.2 grams 05/09/24 10/29/24 Rx mcg-4.5 mcg/actuation aerosol inhaler (Symbicort) guaifenesin 600 mg tablet, 600 mg PO BID #10 tabs 05/09/24 10/29/24 Rx extended release 12 hr semaglutide 7 mg tablet (Rybelsus) 7 mg PO DAILY 05/09/24 10/29/24 History aspirin 81 mg tablet 81 mg PO DAILY #90 tabs 07/27/24 10/29/24 Rx doxycycline hyclate 100 mg capsule 100 mg PO BID #8 caps 07/27/24 10/29/24 Rx loratadine 10 mg tablet 10 mg PO DAILY #90 tabs 07/27/24 10/29/24 Rx prednisone 20 mg tablet See Taper PO DAILY #13 tabs 07/27/24 10/29/24 Rx rosuvastatin 5 mg tablet 5 mg PO DAILY #30 tabs 07/27/24 10/29/24 Rx biotin 5 mg capsule 5 mg PO DAILY 08/05/24 10/29/24 History cholecalciferol (vitamin D3) 25 3,000 unit PO DAILY 08/05/24 10/29/24 History mcg (1,000 unit) capsule ipratropium 20 mcg-albuterol 100 1 puff inhalation Q6H 08/05/24 10/29/24 History mcg/actuation mist for inhalation (Combivent Respimat) losartan 100 mg tablet 100 mg PO DAILY 08/05/24 10/29/24 History multivitamin 1 tab PO DAILY 08/05/24 10/29/24 History omega-3 fatty acids 1,000 mg 1,000 mg PO DAILY 08/05/24 10/29/24 History capsule ascorbic acid (vitamin C) 1,000 mg 1 g PO DAILY 08/08/24 10/29/24 History capsule budesonide-formoterol HFA 80 2 inh inhalation BID 08/08/24 10/29/24 History mcg-4.5 mcg/actuation aerosol inhaler (Breyna) mecobalamin (vitamin B12) 1,000 1,000 mcg PO DAILY 08/08/24 10/29/24 History mcg chewable tablet amlodipine 10 mg tablet 10 mg PO DAILY 10/29/24 10/29/24 History tirzepatide 7.5 mg/0.5 mL 7.5 mg subcut .qweekly 10/29/24 10/29/24 History subcutaneous pen injector (Mounjaro) Exam Narrative Exam Narrative: General: Patient appears appropriate for age, moderately obese, alert and oriented x 3 and in no acute distress. She does have a hoarse voice. HEENT: Normocephalic, eyes with pupils equal and react to light symmetrically, extraocular movement intact and sclera anicteric. Oropharynx with dry mucosa and fair dentition. Neck: Supple without JVD. Back: Stooped posture without CVA tenderness. Lungs: Fair to poor aeration with increased expiratory phase and diffuse expiratory wheeze without focalizing. There were no focalizing rales or rhonchi but increased upper airway noise with wheeze. No intercostal retraction. Bronchovesicular breath sounds diffusely. Breast: Exam deferred. Heart: Tachycardic rate and regular rhythm with no murmurs gallops appreciated. Abdomen: Obese contour, soft and nontender to palpation with no palpable hepatosplenomegaly. Bowel sounds positive all quadrants. Genitalia/rectal: Exam deferred. Extremities: No clubbing, cyanosis or pitting edema patient appears to have nonpitting edema over lower extremities. Good cap refill. Skin: Normal color, warm and dry. Neuro: Cranial nerves II through XII gross intact, no focalized motor deficits and no tremor. Psych: Normal affect and mood. No abnormal thought processes. Remote and recent memory intact. Results Imaging Imaging Studies: EXAM: XR CHEST 2V PA LATERAL Date exam: 10/29/2024 CLINICAL HISTORY: chest pain, shortness of breath TECHNIQUE: 2D digital imaging was performed of the chest. Two images were obtained. PA and lateral views were obtained. COMPARISON: CR XR PORTABLE CHEST AP from 05/08/2024 CR XR PORTABLE CHEST AP from 07/26/2024 FINDINGS: MEDIASTINUM: Normal. HEART: Normal. PULMONARY VASCULATURE: Normal. LUNGS: There are no focal consolidating infiltrates. The lungs appear hyperinflated suggesting underlying COPD. PLEURAL SPACE: No pleural effusion or pneumothorax. BONE:Within normal limits for the patient's age. There is a right convex lower thoracic right convex scoliosis. OTHER FINDINGS:Normal. IMPRESSION: No focal consolidating infiltrates. Labs 10/29/24 17:03 10/29/24 17:03 Labs: Laboratory Results - last 24 hr 10/29/24 10/29/24 10/29/24 16:31 17:03 18:32 WBC 13.49 H RBC 4.65 Hgb 13.6 Hct 42.3 MCV 91 MCH 29.2 MCHC 32.2 RDW 13.7 Plt Count 232 MPV 10.4 Immature Gran % 0.4 Neutrophils % 76.7 Lymphocytes % 14.2 Monocytes % 3.6 Eosinophils % 4.7 Basophils % 0.4 Nucleated RBC % 0.0 Absolute Neutrophils 10.35 H Absolute Lymphocytes 1.92 Absolute Monocytes 0.49 Absolute Eosinophils 0.63 Absolute Basophils 0.05 VBG pH 7.35 VBG pCO2 47 VBG pO2 62 VBG HCO3 26 VBG Total CO2 24 VBG O2 Saturation 92 VBG Base Excess 1 Sodium 144 Potassium 3.5 Chloride 105 Carbon Dioxide 27.1 Anion Gap 11.9 H BUN 16 Creatinine 0.7 Est GFR (CKD-EPI 2020) 93.56 Glucose 138 H Calcium 9.2 Magnesium 2.4 Total Bilirubin 0.4 AST 21 ALT 32 Alkaline Phosphatase 76 Troponin I 156 H* 344 H* NT-Pro-B Natriuret Pep 261 Total Protein 7.3 Albumin 3.7 COVID-19 Source Cancelled SARS-CoV-2 (PCR) Cancelled Influenza Type A (PCR) Cancelled Influenza Type B (PCR) Cancelled RSV (PCR) Cancelled 10/29/24 19:58 WBC RBC Hgb Hct MCV MCH MCHC RDW Plt Count MPV Immature Gran % Neutrophils % Lymphocytes % Monocytes % Eosinophils % Basophils % Nucleated RBC % Absolute Neutrophils Absolute Lymphocytes Absolute Monocytes Absolute Eosinophils Absolute Basophils VBG pH VBG pCO2 VBG pO2 VBG HCO3 VBG Total CO2 VBG O2 Saturation VBG Base Excess Sodium Potassium Chloride Carbon Dioxide Anion Gap BUN Creatinine Est GFR (CKD-EPI 2020) Glucose Calcium Magnesium Total Bilirubin AST ALT Alkaline Phosphatase Troponin I 406 H* NT-Pro-B Natriuret Pep Total Protein Albumin COVID-19 Source SARS-CoV-2 (PCR) Influenza Type A (PCR) Influenza Type B (PCR) RSV (PCR) Last Vital Signs Temp 36.8 C 10/29/24 16:30 Pulse 105 H 10/29/24 20:20 Resp 20 10/29/24 20:20 BP 132/73 10/29/24 20:17 Pulse Ox 93 10/29/24 20:20 Time Spent Time spent with Patient: >75 minutes Time was spent: preparing to see the patient(eg.review tests), obtaining and/or reviewing separately otained hiistory, ordering medications,tests, procedures, referring, communicating with other health critical care specialist, indepentently interpreting results, counseling the patient and care coordination
[2024-10-29 21:00] LABS: COVID-19 PCR Negative (Negative); RSV PCR Negative (Negative)
[2024-10-29] MEDS: Albuterol 2.5 MG/3 ML INH SOLN VIAL UPD (21:16)
--- NOTE | 2024-10-29 23:03 | W.ED.GENAD ---
Discharge Plan Disposition Patient Disposition: Admit to [facility] Condition: Critical Discharge Details Clinical Impression: Acute hypoxemic respiratory failure, COPD exacerbation, Elevated troponin I level, Diabetes Admit Date/Time: 10/29/24 21:23 Admit Provider: Sanford Martinez Attending Provider: Sanford Martinez Primary Care Provider: Charlene Pool ED Provider: Leana Garcia Discharge Data Discharge Date/Time-TO BE ENTERED AT DEPARTURE: 10/29/24 23:19 HPI General Date/Time Provider Initiated Documentation: 10/29/24 16:17. HPI Narrative: This 69-year-old female with past medical history diabetes, hyperlipidemia, htn presents with report of shortness of breath which started on Monday patient has had some upper respiratory symptoms. She denies any fever or chills. Denies any calf pain or swelling she denies prior history of PE or DVT. She denies any known sick contacts. EMS gives report that she received 3 DuoNebs and Decadron with magnesium prior to arrival with IV placement. She is a marked improvement in symptoms. She states this is identical to her prior COPD exacerbation. She denies any chest pain. Related Data Home Medications ?Medication ?Instructions ?Recorded ?Confirmed sertraline 50 mg tablet 50 mg PO DAILY 06/28/22 10/29/24 albuterol sulfate 90 mcg/actuation 2 puff inhalation Q4H PRN 05/08/24 10/29/24 aerosol inhaler guaifenesin 600 mg tablet, 600 mg PO BID #10 tabs 05/09/24 10/29/24 extended release 12 hr aspirin 81 mg tablet 81 mg PO DAILY #90 tabs 07/27/24 10/29/24 rosuvastatin 5 mg tablet 5 mg PO DAILY #30 tabs 07/27/24 10/29/24 biotin 5 mg capsule 5 mg PO DAILY 08/05/24 10/29/24 cholecalciferol (vitamin D3) 25 3,000 unit PO DAILY 08/05/24 10/29/24 mcg (1,000 unit) capsule losartan 100 mg tablet 100 mg PO DAILY 08/05/24 10/29/24 multivitamin 1 tab PO DAILY 08/05/24 10/29/24 omega-3 fatty acids 1,000 mg 1,000 mg PO DAILY 08/05/24 10/29/24 capsule ascorbic acid (vitamin C) 1,000 mg 1 g PO DAILY 08/08/24 10/29/24 capsule budesonide-formoterol HFA 80 2 inh inhalation BID 08/08/24 10/29/24 mcg-4.5 mcg/actuation aerosol inhaler (Breyna) amlodipine 10 mg tablet 10 mg PO DAILY 10/29/24 10/29/24 tirzepatide 7.5 mg/0.5 mL 7.5 mg subcut .qweekly 10/29/24 10/29/24 subcutaneous pen injector (Elizabeth) Previous Rx's ?Medication ?Instructions ?Recorded guaifenesin 600 mg tablet, 600 mg PO BID #10 tabs 05/09/24 extended release 12 hr aspirin 81 mg tablet 81 mg PO DAILY #90 tabs 07/27/24 rosuvastatin 5 mg tablet 5 mg PO DAILY #30 tabs 07/27/24 Allergies Allergy/AdvReac Type Severity Reaction Status Date / Time codeine AdvReac Intermediate Nausea Unverified 07/26/24 15:26 metformin AdvReac Intermediate Diarrhea Verified 08/05/24 16:06 General Stated Complaint: RespSymp PAMELA: 2 Exam Narrative Exam Narrative: Alert and oriented 69-year-old female presenting with increased work of breathing. Tachypnea noted, wheezes throughout cardiac rate rhythm regular no Kesling or tenderness appreciated speaking in complete sentences no abdominal tenderness Course Vital Signs Vital signs: Vital Signs Pulse 117 H 10/29/24 16:17 Respiratory Rate 26 H 10/29/24 16:17 Blood Pressure 129/77 10/29/24 16:17 Pulse Oximetry 95 10/29/24 16:17 Temperature 36.8 C 10/29/24 16:30 Temperature Source Tympanic 10/29/24 16:30 Pulse 98 H 10/29/24 22:01 Pulse 97 H 10/29/24 22:01 Respiratory Rate 24 10/29/24 22:01 Respiratory Effort Short of Breath 10/29/24 16:31 Respiratory Depth Normal 10/29/24 16:31 Blood Pressure 93/58 L 10/29/24 22:00 Blood Pressure Mean 67 10/29/24 22:00 Pulse Oximetry 95 10/29/24 22:01 Oxygen Delivery Method Nasal Cannula 10/29/24 18:07 Oxygen Flow Rate 3 10/29/24 18:07 Lab/Test Results Lab/Test Results: Laboratory Tests Range/Units 10/29/24 10/29/24 10/29/24 16:31 17:03 18:32 WBC (4.4-10.8) 10^3/uL 13.49 H RBC (3.93-5.22) 10^6/uL 4.65 Hgb (11.2-15.7) g/dL 13.6 Hct (36.0-46.0) % 42.3 MCV (80-95) fL 91 MCH (27.0-33.0) pg 29.2 MCHC (32.0-36.0) % 32.2 RDW (11.7-14.6) % 13.7 Plt Count (130-400) 10^3/uL 232 MPV (8.0-11.0) fL 10.4 Immature Gran % % 0.4 Neutrophils % % 76.7 Lymphocytes % % 14.2 Monocytes % % 3.6 Eosinophils % % 4.7 Basophils % % 0.4 Nucleated RBC % (0.0-0.3) % 0.0 Absolute Neutrophils (1.2-6.7) 10^3/uL 10.35 H Absolute Lymphocytes (1.2-3.4) 10^3/uL 1.92 Absolute Monocytes (0.1-0.8) 10^3/uL 0.49 Absolute Eosinophils (0.0-0.7) 10^3/uL 0.63 Absolute Basophils (0.0-0.2) 10^3/uL 0.05 VBG pH (7.31-7.41) 7.35 VBG pCO2 (41-51) mmHg 47 VBG pO2 mmHg 62 VBG HCO3 (23-28) mmol/L 26 VBG Total CO2 (24-29) mmol/L 24 VBG O2 Saturation % 92 VBG Base Excess (-2-3) mmol/L 1 Sodium (136-145) mmol/L 144 Potassium (3.5-5.1) mmol/L 3.5 Chloride (98-107) mmol/L 105 Carbon Dioxide (21.0-32.0) mmol/L 27.1 Anion Gap (3-11) mmol/L 11.9 H BUN (7-18) mg/dL 16 Creatinine (0.55-1.02) mg/dL 0.7 Est GFR (CKD-EPI 2020) (mL/min/1.73m2) 93.56 Glucose (74-106) mg/dL 138 H Calcium (8.5-10.1) mg/dL 9.2 Magnesium (1.8-2.4) mg/dL 2.4 Total Bilirubin (0.2-1.0) mg/dL 0.4 AST (15-37) U/L 21 ALT (14-59) U/L 32 Alkaline Phosphatase (46-116) U/L 76 Troponin I (<or=51) ng/L 156 H* 344 H* NT-Pro-B Natriuret Pep (<300) pg/mL 261 Total Protein (6.4-8.2) g/dL 7.3 Albumin (3.4-5.0) g/dL 3.7 COVID-19 Source Cancelled SARS-CoV-2 (PCR) Cancelled Influenza Type A (PCR) Cancelled Influenza Type B (PCR) Cancelled RSV (PCR) Cancelled Range/Units 10/29/24 10/29/24 19:58 20:17 WBC (4.4-10.8) 10^3/uL RBC (3.93-5.22) 10^6/uL Hgb (11.2-15.7) g/dL Hct (36.0-46.0) % MCV (80-95) fL MCH (27.0-33.0) pg MCHC (32.0-36.0) % RDW (11.7-14.6) % Plt Count (130-400) 10^3/uL MPV (8.0-11.0) fL Immature Gran % % Neutrophils % % Lymphocytes % % Monocytes % % Eosinophils % % Basophils % % Nucleated RBC % (0.0-0.3) % Absolute Neutrophils (1.2-6.7) 10^3/uL Absolute Lymphocytes (1.2-3.4) 10^3/uL Absolute Monocytes (0.1-0.8) 10^3/uL Absolute Eosinophils (0.0-0.7) 10^3/uL Absolute Basophils (0.0-0.2) 10^3/uL VBG pH (7.31-7.41) VBG pCO2 (41-51) mmHg VBG pO2 mmHg VBG HCO3 (23-28) mmol/L VBG Total CO2 (24-29) mmol/L VBG O2 Saturation % VBG Base Excess (-2-3) mmol/L Sodium (136-145) mmol/L Potassium (3.5-5.1) mmol/L Chloride (98-107) mmol/L Carbon Dioxide (21.0-32.0) mmol/L Anion Gap (3-11) mmol/L BUN (7-18) mg/dL Creatinine (0.55-1.02) mg/dL Est GFR (CKD-EPI 2020) (mL/min/1.73m2) Glucose (74-106) mg/dL Calcium (8.5-10.1) mg/dL Magnesium (1.8-2.4) mg/dL Total Bilirubin (0.2-1.0) mg/dL AST (15-37) U/L ALT (14-59) U/L Alkaline Phosphatase (46-116) U/L Troponin I (<or=51) ng/L 406 H* NT-Pro-B Natriuret Pep (<300) pg/mL Total Protein (6.4-8.2) g/dL Albumin (3.4-5.0) g/dL COVID-19 Source Nasopharynx SARS-CoV-2 (PCR) Negative Influenza Type A (PCR) Negative Influenza Type B (PCR) Negative RSV (PCR) Negative Medical Decision Making Results: Chest x-ray per radiology interpretation my review does not show acute abnormality CBC and CMP within normal limits troponin is elevated 156 initially climbing to 355 and at the 3-hour marnie 405, EKG is nonischemic assessment and plan, case was discussed with cardiology at [facility] given elevated troponin, suspect type II in the presence of acute respiratory distress although VBG is reassuring BNP is within normal limits there is no evidence of volume overload. Patient states she actually just saw cardiology and had her metoprolol dose increased at the end of September. Denies any prior history of coagulopathy low clinical suspicion for PE given presentation. She did have a CT back in July that was negative for PE. She was given 2 additional nebs in the emergency department and given that she requires oxygen without oxygen dropping to 88%, I do feel she requires admission to this facility. Cardiology recommends aspirin and continued monitoring they do not recommend heparinization or transfer at this time. At this time I think patient stable for admission to our facility she has a nonischemic EKG and her troponin seems to be plateauing she is a full CODE STATUS Quality:SDOH Health Related Social Needs: Health related social needs risk of homeless Critical Care Time Critical Care Time Attestation: 45 minutes of critical care time secondary to DuoNeb administration x 3, oxygen supplementation at 2 L, IV steroids, continue telemetry monitoring elevated troponin with type likely type II NSTEMI in the setting of stress secondary to acute hypoxemic respiratory failure, admission to the hospital for continued monitoring, nebs, diagnostic lab interpretation and review [facility] All Active Problems (Updated 10/31/24 @ 08:30 by EMIGDIO Garcia) Acute hypoxemic respiratory failure (Acute) HTN (hypertension) (Chronic) HLD (hyperlipidemia) (Chronic) Anxiety disorder (Chronic) Adrenal nodule (Acute) Elevated troponin I level (Acute) Diabetes (Chronic) COPD exacerbation (Acute) Medical History Reactive airway disease with acute exacerbation Social History Smoking/Tobacco Use Status: Current every day Tobacco Type: cigarettes Smoking risk assessment performed?: Yes Alcohol Intake: never Drug use: Never Housing: house Do you feel safe at home: Yes Do you feel safe in your relationship?: Yes
[2024-10-30] VITALS (14 sets, daily range): BP systolic 101–131; BP diastolic 63–75; PULSE 97–157; RESP 16–24; TEMP 35.7–36.8; O2SAT 91–97
--- NOTE | 2024-10-30 00:45 | W.PC.ACHO ---
Registration Status: ADM IN Primary Language: Preferred Language: ED Information & Data Chief Complaint RespSymp 10/29/24 23:09 Triage Note patient complaining of diff 10/29/24 16:17 breathing for 2 days. EMS gave 2 Alb, 1 douneb, steriods and mag enroute. Medical / Surgical History (Last Reviewed 10/29/24 @ 20:43 by Sanford Martinez) Reactive airway disease with acute exacerbation Most Recent Vital Signs Temperature 36.5 C 10/29/24 23:24 Temperature Source Temporal Artery Scan 10/29/24 23:21 Pulse 97 H 10/29/24 23:24 Pulse Rhythm Regular 10/29/24 23:24 Pulse 97 H 10/29/24 22:01 Respiratory Rate 20 10/29/24 23:24 Respiratory Effort Normal 10/29/24 23:24 Respiratory Depth Normal 10/29/24 23:24 Respiratory Pattern Normal 10/29/24 23:24 Blood Pressure 123/68 10/29/24 23:24 Blood Pressure Mean 86 10/29/24 23:21 Pulse Oximetry 98 10/29/24 23:24 Oxygen Delivery Method Nasal Cannula 10/29/24 23:24 Oxygen Flow Rate 3 10/29/24 23:24 Allergies codeine Adverse Reaction (Intermediate, Unverified 07/26/24 15:26) Nausea metformin Adverse Reaction (Intermediate, Verified 08/05/24 16:06) Diarrhea nausea comitting, headache IV IV Catheter Type [Left Hand] Saline Lock IV Catheter Gauge [Left Hand] 18 Diet Orders Category Date Time Status Diabetes Consistent CHO/Heart Healthy [DIET] Nutrition 10/30/24 Breakfast Active Diagnostics 10/30/24 10/30/24 10/29/24 Range/Units 05:35 00:20 20:17 WBC Pending (4.4-10.8) 10^3/uL RBC Pending (3.93-5.22) 10^6/uL Hgb Pending (11.2-15.7) g/dL Hct Pending (36.0-46.0) % MCV Pending (80-95) fL MCH Pending (27.0-33.0) pg MCHC Pending (32.0-36.0) % RDW Pending (11.7-14.6) % Plt Count Pending (130-400) 10^3/uL MPV Pending (8.0-11.0) fL Immature Gran % % Neutrophils % % Lymphocytes % % Monocytes % % Eosinophils % % Basophils % % Nucleated RBC % (0.0-0.3) % Absolute Neutrophils (1.2-6.7) 10^3/uL Absolute Lymphocytes (1.2-3.4) 10^3/uL Absolute Monocytes (0.1-0.8) 10^3/uL Absolute Eosinophils (0.0-0.7) 10^3/uL Absolute Basophils (0.0-0.2) 10^3/uL VBG pH (7.31-7.41) VBG pCO2 (41-51) mmHg VBG pO2 mmHg VBG HCO3 (23-28) mmol/L VBG Total CO2 (24-29) mmol/L VBG O2 Saturation % VBG Base Excess (-2-3) mmol/L Sodium Pending (136-145) mmol/L Potassium Pending (3.5-5.1) mmol/L Chloride Pending (98-107) mmol/L Carbon Dioxide Pending (21.0-32.0) mmol/L Anion Gap Pending (3-11) mmol/L BUN Pending (7-18) mg/dL Creatinine Pending (0.55-1.02) mg/dL Est GFR (CKD-EPI 2020) Pending (mL/min/1.73m2) Glucose Pending (74-106) mg/dL Calcium Pending (8.5-10.1) mg/dL Magnesium Pending (1.8-2.4) mg/dL Total Bilirubin Pending (0.2-1.0) mg/dL AST Pending (15-37) U/L ALT Pending (14-59) U/L Alkaline Phosphatase Pending (46-116) U/L Troponin I Pending Pending (<or=51) ng/L NT-Pro-B Natriuret Pep (<300) pg/mL Total Protein Pending (6.4-8.2) g/dL Albumin Pending (3.4-5.0) g/dL TSH Pending COVID-19 Source Nasopharynx SARS-CoV-2 (PCR) Negative Influenza Type A (PCR) Negative Influenza Type B (PCR) Negative RSV (PCR) Negative 0910/29/24 10/29/24 Range/Units 19:58 18:32 17:03 WBC 13.49 H (4.4-10.8) 10^3/uL RBC 4.65 (3.93-5.22) 10^6/uL Hgb 13.6 (11.2-15.7) g/dL Hct 42.3 (36.0-46.0) % MCV 91 (80-95) fL MCH 29.2 (27.0-33.0) pg MCHC 32.2 (32.0-36.0) % RDW 13.7 (11.7-14.6) % Plt Count 232 (130-400) 10^3/uL MPV 10.4 (8.0-11.0) fL Immature Gran % 0.4 % Neutrophils % 76.7 % Lymphocytes % 14.2 % Monocytes % 3.6 % Eosinophils % 4.7 % Basophils % 0.4 % Nucleated RBC % 0.0 (0.0-0.3) % Absolute Neutrophils 10.35 H (1.2-6.7) 10^3/uL Absolute Lymphocytes 1.92 (1.2-3.4) 10^3/uL Absolute Monocytes 0.49 (0.1-0.8) 10^3/uL Absolute Eosinophils 0.63 (0.0-0.7) 10^3/uL Absolute Basophils 0.05 (0.0-0.2) 10^3/uL VBG pH 7.35 (7.31-7.41) VBG pCO2 47 (41-51) mmHg VBG pO2 62 mmHg VBG HCO3 26 (23-28) mmol/L VBG Total CO2 24 (24-29) mmol/L VBG O2 Saturation 92 % VBG Base Excess 1 (-2-3) mmol/L Sodium 144 (136-145) mmol/L Potassium 3.5 (3.5-5.1) mmol/L Chloride 105 (98-107) mmol/L Carbon Dioxide 27.1 (21.0-32.0) mmol/L Anion Gap 11.9 H (3-11) mmol/L BUN 16 (7-18) mg/dL Creatinine 0.7 (0.55-1.02) mg/dL Est GFR (CKD-EPI 2020) 93.56 (mL/min/1.73m2) Glucose 138 H (74-106) mg/dL Calcium 9.2 (8.5-10.1) mg/dL Magnesium 2.4 (1.8-2.4) mg/dL Total Bilirubin 0.4 (0.2-1.0) mg/dL AST 21 (15-37) U/L ALT 32 (14-59) U/L Alkaline Phosphatase 76 (46-116) U/L Troponin I 406 H* 344 H* 156 H* (<or=51) ng/L NT-Pro-B Natriuret Pep 261 (<300) pg/mL Total Protein 7.3 (6.4-8.2) g/dL Albumin 3.7 (3.4-5.0) g/dL TSH COVID-19 Source SARS-CoV-2 (PCR) Influenza Type A (PCR) Influenza Type B (PCR) RSV (PCR) 10/29/24 Range/Units 16:31 WBC (4.4-10.8) 10^3/uL RBC (3.93-5.22) 10^6/uL Hgb (11.2-15.7) g/dL Hct (36.0-46.0) % MCV (80-95) fL MCH (27.0-33.0) pg MCHC (32.0-36.0) % RDW (11.7-14.6) % Plt Count (130-400) 10^3/uL MPV (8.0-11.0) fL Immature Gran % % Neutrophils % % Lymphocytes % % Monocytes % % Eosinophils % % Basophils % % Nucleated RBC % (0.0-0.3) % Absolute Neutrophils (1.2-6.7) 10^3/uL Absolute Lymphocytes (1.2-3.4) 10^3/uL Absolute Monocytes (0.1-0.8) 10^3/uL Absolute Eosinophils (0.0-0.7) 10^3/uL Absolute Basophils (0.0-0.2) 10^3/uL VBG pH (7.31-7.41) VBG pCO2 (41-51) mmHg VBG pO2 mmHg VBG HCO3 (23-28) mmol/L VBG Total CO2 (24-29) mmol/L VBG O2 Saturation % VBG Base Excess (-2-3) mmol/L Sodium (136-145) mmol/L Potassium (3.5-5.1) mmol/L Chloride (98-107) mmol/L Carbon Dioxide (21.0-32.0) mmol/L Anion Gap (3-11) mmol/L BUN (7-18) mg/dL Creatinine (0.55-1.02) mg/dL Est GFR (CKD-EPI 2020) (mL/min/1.73m2) Glucose (74-106) mg/dL Calcium (8.5-10.1) mg/dL Magnesium (1.8-2.4) mg/dL Total Bilirubin (0.2-1.0) mg/dL AST (15-37) U/L ALT (14-59) U/L Alkaline Phosphatase (46-116) U/L Troponin I (<or=51) ng/L NT-Pro-B Natriuret Pep (<300) pg/mL Total Protein (6.4-8.2) g/dL Albumin (3.4-5.0) g/dL TSH COVID-19 Source Cancelled SARS-CoV-2 (PCR) Cancelled Influenza Type A (PCR) Cancelled Influenza Type B (PCR) Cancelled RSV (PCR) Cancelled Lnrae-ca-Pjpo Documentation Fingerstick Glucose Start: 10/29/24 20:35 Freq: Status: Complete Protocol: Activity Type Activity Date Activity User E-sign Co-sign Detail Recorded Client Recorded Date Recorded By Document 10/29/24 20:34 BKG DAEMON(7) [id number] 10/29/24 20:35 BKG DAEMON(8) Intake and Output - 24 Hour Total 10/29/24 16:07 thru 10/29/24 23:50 Weight 82.46 kg Falls Risk Assessment History of Falls No History 10/29/24 23:24 Contributing Factors No Factors 10/29/24 16:31 Ambulatory Aids Independent 10/29/24 16:31 Tubes/Lines None 10/29/24 16:31 Gait Evaluation No gait disturbance 10/29/24 16:31 Cognition No cognitive impairment 10/29/24 16:31 Fall Total Score 0 10/29/24 23:24 Level of Risk Standard/Low Risk 10/29/24 23:24 Problems (Last Reviewed 10/29/24 @ 20:43 by Sanford Martinez) HTN (hypertension) (Chronic) HLD (hyperlipidemia) (Chronic) Anxiety disorder (Chronic) Elevated troponin I level (Acute) Diabetes (Chronic) COPD exacerbation (Acute) v v v v v v v v v Sending and/or Receiving Nurses: Please use comment section below to note any information pertinent to the patient hand-off not included above. Information / Comments: Report received from:Deedee Abdalla RN . All questions answered at [phone].
[2024-10-30 00:58] LABS: TSH (W/Ref FT4) 0.43 uIU/mL (0.36-3.74)
[2024-10-30 01:03] LABS: Troponin I 491 ng/L (<or=51)
[2024-10-30] MEDS: methylPREDNISolone SUCC 40 MG VIAL 60 MG IVP (02:23)
[2024-10-30] MEDS: Normal Saline 1,000 ML 80 ML IV (02:24)
[2024-10-30 04:32] LABS: Glucose Negative (Negative)
[2024-10-30 04:41] LABS: C & S Indicated? No; RBC Negative HPF (0-2)
[2024-10-30] MEDS: DOXYCYCLINE 100 MG in Normal Saline 100 ML IVPB (06:02)
[2024-10-30] MEDS: Albuterol/Ipratropium 3 ML UPD VIAL UPD ×3 (06:05→17:46)
[2024-10-30 07:13] LABS: HCT 39.3 % (36.0-46.0); HGB 12.3 g/dL (11.2-15.7); MCH 28.3 pg (27.0-33.0); MCHC 31.3 % (32.0-36.0); MCV 91 fL (80-95); MPV 10.4 fL (8.0-11.0); Platelet Count 230 10^3/uL (130-400); RBC 4.34 10^6/uL (3.93-5.22); RDW 13.6 % (11.7-14.6); RDW-SD 45.3 fL; WBC 10.24 10^3/uL (4.4-10.8)
[2024-10-30 07:48] LABS: ALT 31 U/L (14-59); AST 16 U/L (15-37); Albumin 3.6 g/dL (3.4-5.0); Alkaline Phosphatase 64 U/L (46-116); Anion Gap 9.8 mmol/L (3-11); BUN 20 mg/dL (7-18); Bilirubin, Total 0.2 mg/dL (0.2-1.0); CO2 27.2 mmol/L (21.0-32.0); Calcium 8.9 mg/dL (8.5-10.1); Chloride 105 mmol/L (98-107); Estimated GFR 93.56 (mL/min/1.73m2); Glucose 179 mg/dL (74-106); Magnesium 1.9 mg/dL (1.8-2.4); Potassium 4.1 mmol/L (3.5-5.1); Sodium 142 mmol/L (136-145); Total Protein 7.1 g/dL (6.4-8.2)
[2024-10-30 08:13] LABS: Troponin I 417 ng/L (<or=51)
[2024-10-30] MEDS: Budesonide/Formoterol 80/4.5 6.9 GM 60 PUFF INH IH ×2 (08:24→19:32)
[2024-10-30] MEDS: Insulin Aspart 300 UNITS/3 ML PEN SC ×4 (08:26→22:07)
[2024-10-30] MEDS: Enoxaparin 40 MG/0.4 ML SYR SC (08:28)
[2024-10-30] MEDS: predniSONE 20 MG TAB 40 MG PO (08:29)
[2024-10-30] MEDS: Cholecalciferol (Vitamin D3) 1,000 UNIT TAB 3000 UNITS PO (08:29)
[2024-10-30] MEDS: Losartan 50 MG TAB 100 MG PO (08:29)
[2024-10-30] MEDS: guaiFENesin 600 MG TABCR PO ×2 (08:29→21:11)
[2024-10-30] MEDS: Aspirin 81 MG CHEW PO (08:29)
[2024-10-30] MEDS: Omega-3 Fatty Acids 1000 MG CAP PO (08:29)
[2024-10-30] MEDS: Ascorbic Acid 500 MG TAB PO (08:29)
[2024-10-30] MEDS: amLODIPine 10 MG TAB PO (08:30)
[2024-10-30] MEDS: Multivitamin TAB 1 TAB PO (08:30)
[2024-10-30] MEDS: Sertraline 50 MG TAB PO (08:30)
[2024-10-30] MEDS: Doxycycline Hyclate 100 MG CAP PO ×2 (08:30→21:11)
[2024-10-30] MEDS: Cyanocobalamin 500 MCG TAB 1000 MCG PO (08:30)
--- NOTE | 2024-10-30 08:41 | PDOC.CMIN ---
Date of service: 10/30/24 Time of Service: 08:41 Care Management Initial Assmt Initial Assessment Reason for Hospitalization: COPD exacerbation Functional Status/Living Situation Patient Presentation: Jenny presented to the ER last night with c/o COPD exacerbation. Her symptoms worsened over a period of 2 days. She is now requiring nc O2 and was admitted for IV steroids, nebulizer txs and IV antibiotics. Jenny was sitting up in the bed when CM met with her today. She was very pleasant with CM. She stated that she was very afraid that she was going to last night. She struggled to catch her breath, and her was out doing yard work. She stated that her body became numb and her heart felt like it was going to burst. Today she was still doing some pursed lip breathing, and couldn't speak in complete sentences. She was still wearing her nc O2, she stated that she has been needing off and on. 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 Care Team Visit Care Team Role Provider Type Danny Jensen MD MD [facility] STAFF PHYSICIAN Charlene Pool Primary Care Provider NURSE PRACTITIONER EMIGDIO Garcia Emergency Provider PHYSICIANS PHARMACOGNOSY TEACHER Sanford Martinez Admit Provider NON-[facility] STAFF PHYSICIAN Attending Provider Discharge Potential Discharge Needs: PCP F/U Appt and Other (pulmonology f/u (has provider at [facility])) Anticipated Barriers to Discharge: None Identified Patient/Family Education Needs: Review discharge instructions, discuss Ask Me Three Transportation: Private vehicle Plan: Anticipate that Jenny will discharge home in the next day or 2 with no new home care services. She will f/u with her PCP and her ocean biologist and continue per her plan of care. Jenny will transport home with her . CM will continue to follow. Social Determinants of Health Screening Social Determinants of health last assessed in clinic: 10/30/24 Will the Patient Participate in the Screening?: Yes Do you worry about having a steady place to live?: yes What is your living situation today?: I have housing today, but am worried about losing it Problems where you live: no known problems In the past 12 months, have you had to go without electric, gas, oil or water in your home?: no 1. Within the past 12 months, we worried whether our food would run out before we got money to buy more.: Don't know/refused 2. Within the past 12 months, the food we bought just didn't last and we didn't have money to get more.: Don't know/refused Has lack of transportation kept you from medical appointments or from doing things needed for daily living?: no Has anyone in your life made you feel unsafe or unsupported?: no How hard is it for you to pay for the very basics like food, housing, medical care, and heating? Would you say it is:: Not hard at all Do you want help finding or keeping work or a job?: I do not need or want help If for any reason you need help with day-to-day activities such as bathing, preparing meals, shopping, managing finances, etc., do you get the help you need?: I don?t need any help How often do you feel lonely or isolated from those around you?: Never Do you speak a language other than Stateless at home?: No Does the patient want assistance with any of the above?: No Health Related Social Needs Health related social needs: housing instability, housed, with risk of homelessness (Z59.811) [facility] All Active Problems (Updated 10/30/24 @ 10:58 by Danny Jensen MD) Acute hypoxemic respiratory failure (Acute) HTN (hypertension) (Chronic) HLD (hyperlipidemia) (Chronic) Anxiety disorder (Chronic) Adrenal nodule (Acute) Elevated troponin I level (Acute) Diabetes (Chronic) COPD exacerbation (Acute) Medical History Reactive airway disease with acute exacerbation Social History Smoking/Tobacco Use Status: Current every day Tobacco Type: cigarettes Smoking risk assessment performed?: Yes Alcohol Intake: never Drug use: Never Housing: house Do you feel safe at home: Yes Do you feel safe in your relationship?: Yes
--- NOTE | 2024-10-30 10:57 | W.PM.PROGNOT ---
Date of Service Date of service: 10/30/24 Time of Service: 10:57 Assessment and Plan Assessment and plan (1) COPD exacerbation: Start date: 10/29/24 Status: Acute Assessment and plan: - Patient presented with acute exacerbation of COPD with acute hypoxic respiratory failure - Was given IV Solu-Medrol in the emergency department bed and nebulizers - Will continue nebulizer treatment - Transition to p.o. prednisone 40 mg daily - Was also given IV doxycycline in the emergency department, will transition to p.o. doxycycline (2) Acute hypoxemic respiratory failure: Status: Acute Assessment and plan: - Secondary to COPD exacerbation as noted above - Initially on 4 L nasal cannula, has since been transition to room air at rest - Goal oxygen saturation 88 to 92% (3) Elevated troponin I level: Start date: 10/29/24 Status: Acute Assessment and plan: - Troponin in the ED peaked at 491, thought to be secondary to demand ischemia in the setting of acute expiratory failure from COPD exacerbation as noted above - Patient without chest pain or EKG changes - Repeat troponin decreased from 417 - Will follow-up a.m. troponin (4) Diabetes: Status: Chronic Assessment and plan: - Hold home GLP-1 - Sliding scale insulin, carb consistent diet (5) Anxiety disorder: Status: Chronic Assessment and plan: - Continue home sertraline (6) HTN (hypertension): Status: Chronic Assessment and plan: - Continue home losartan (7) HLD (hyperlipidemia): Status: Chronic Assessment and plan: - Continue home statin Subjective Subjective Interval history since last seen: Patient states that she is feeling better as compared to admission and has no complaints concerns at this time. Exam Narrative Exam Narrative: Well-appearing female laying in bed in no acute distress, ANO x 4, heart regular rhythm, lungs with mild expiratory wheezing throughout, abdomen soft, nontender, nondistended Objective Last Vital Signs Temp 96.3 F L 10/30/24 07:06 Pulse 100 H 10/30/24 07:06 Resp 16 10/30/24 07:06 BP 121/68 10/30/24 07:06 Pulse Ox 91 L 10/30/24 08:20 Laboratory Results - last 24 hr 10/29/24 10/29/24 10/29/24 16:31 17:03 18:32 WBC 13.49 H RBC 4.65 Hgb 13.6 Hct 42.3 MCV 91 MCH 29.2 MCHC 32.2 RDW 13.7 Plt Count 232 MPV 10.4 Immature Gran % 0.4 Neutrophils % 76.7 Lymphocytes % 14.2 Monocytes % 3.6 Eosinophils % 4.7 Basophils % 0.4 Nucleated RBC % 0.0 Absolute Neutrophils 10.35 H Absolute Lymphocytes 1.92 Absolute Monocytes 0.49 Absolute Eosinophils 0.63 Absolute Basophils 0.05 VBG pH 7.35 VBG pCO2 47 VBG pO2 62 VBG HCO3 26 VBG Total CO2 24 VBG O2 Saturation 92 VBG Base Excess 1 Sodium 144 Potassium 3.5 Chloride 105 Carbon Dioxide 27.1 Anion Gap 11.9 H BUN 16 Creatinine 0.7 Est GFR (CKD-EPI 2020) 93.56 Glucose 138 H Calcium 9.2 Magnesium 2.4 Total Bilirubin 0.4 AST 21 ALT 32 Alkaline Phosphatase 76 Troponin I 156 H* 344 H* NT-Pro-B Natriuret Pep 261 Total Protein 7.3 Albumin 3.7 TSH Urine Color Urine Clarity Urine pH Ur Specific [place] Urine Protein Urine Ketones Urine Blood Urine Nitrite Urine Bilirubin Urine Urobilinogen Ur Leukocyte Esterase Urine RBC Urine WBC Ur Epithelial Cells Urine Crystals Urine Bacteria Urine Casts Urine Mucus Ur Culture Indicated? Urine Glucose COVID-19 Source Cancelled SARS-CoV-2 (PCR) Cancelled Influenza Type A (PCR) Cancelled Influenza Type B (PCR) Cancelled RSV (PCR) Cancelled 10/29/24 10/29/24 10/30/24 19:58 20:17 00:20 WBC RBC Hgb Hct MCV MCH MCHC RDW Plt Count MPV Immature Gran % Neutrophils % Lymphocytes % Monocytes % Eosinophils % Basophils % Nucleated RBC % Absolute Neutrophils Absolute Lymphocytes Absolute Monocytes Absolute Eosinophils Absolute Basophils VBG pH VBG pCO2 VBG pO2 VBG HCO3 VBG Total CO2 VBG O2 Saturation VBG Base Excess Sodium Potassium Chloride Carbon Dioxide Anion Gap BUN Creatinine Est GFR (CKD-EPI 2020) Glucose Calcium Magnesium Total Bilirubin AST ALT Alkaline Phosphatase Troponin I 406 H* 491 H* NT-Pro-B Natriuret Pep Total Protein Albumin TSH 0.43 Urine Color Urine Clarity Urine pH Ur Specific [place] Urine Protein Urine Ketones Urine Blood Urine Nitrite Urine Bilirubin Urine Urobilinogen Ur Leukocyte Esterase Urine RBC Urine WBC Ur Epithelial Cells Urine Crystals Urine Bacteria Urine Casts Urine Mucus Ur Culture Indicated? Urine Glucose COVID-19 Source Nasopharynx SARS-CoV-2 (PCR) Negative Influenza Type A (PCR) Negative Influenza Type B (PCR) Negative RSV (PCR) Negative 10/30/24 10/30/24 01:10 06:42 WBC 10.24 RBC 4.34 Hgb 12.3 Hct 39.3 MCV 91 MCH 28.3 MCHC 31.3 L RDW 13.6 Plt Count 230 MPV 10.4 Immature Gran % Neutrophils % Lymphocytes % Monocytes % Eosinophils % Basophils % Nucleated RBC % Absolute Neutrophils Absolute Lymphocytes Absolute Monocytes Absolute Eosinophils Absolute Basophils VBG pH VBG pCO2 VBG pO2 VBG HCO3 VBG Total CO2 VBG O2 Saturation VBG Base Excess Sodium 142 Potassium 4.1 Chloride 105 Carbon Dioxide 27.2 Anion Gap 9.8 BUN 20 H Creatinine 0.7 Est GFR (CKD-EPI 2020) 93.56 Glucose 179 H Calcium 8.9 Magnesium 1.9 Total Bilirubin 0.2 AST 16 ALT 31 Alkaline Phosphatase 64 Troponin I 417 H* NT-Pro-B Natriuret Pep Total Protein 7.1 Albumin 3.6 TSH Urine Color Yellow Urine Clarity Clear Urine pH 5.0 Ur Specific [place] >= 1.030 H Urine Protein >=300 H Urine Ketones Negative Urine Blood Negative Urine Nitrite Negative Urine Bilirubin Negative Urine Urobilinogen 0.2 Ur Leukocyte Esterase Negative Urine RBC Negative Urine WBC 3-5 Ur Epithelial Cells Few Urine Crystals Negative Urine Bacteria Few Urine Casts 0-2 Coarse Granular Urine Mucus Moderate Ur Culture Indicated? No Urine Glucose Negative COVID-19 Source SARS-CoV-2 (PCR) Influenza Type A (PCR) Influenza Type B (PCR) RSV (PCR) Time Spent with Patient Time Spent with Patient: >50 minutes Time was spent: preparing to see the patient(eg.review tests), obtaining and/or reviewing separately otained hiistory, ordering medications,tests, procedures, referring, communicating with other health career representative, indepentently interpreting results, counseling the patient and care coordination
[2024-10-30] MEDS: Acetaminophen 325 MG TAB 650 MG PO (10:58)
--- NOTE | 2024-10-30 12:43 | CHAPLAIN ---
Jenny was sitting up in bed when I visited this morning. She'd just had a painful experience with an IV and was teary. She told me that she expected her to be in soon to visit and she felt like was fine now. She was admitted late last night after being in the ED yesterday. I explained my role and offered support.
--- NOTE | 2024-10-30 14:22 | PHA.REVIEW2 ---
Pharmacy Admission Review Admission Clinical Review Admission Pharmacy Review: Acute hypoxemic respiratory failure (Acute) Elevated troponin I level (Acute) COPD exacerbation (Acute) codeine Adverse Reaction (Intermediate, Unverified 07/26/24 15:26) Nausea metformin Adverse Reaction (Intermediate, Verified 08/05/24 16:06) Diarrhea Resuscitation Status Full Code Height 5 ft 4 in Weight 82.46 kg Comments Comments/Follow Ups: Follow up on home med question (Anoro Ellipta) Pharmacy Admission Review Renal Dosing Renal Dosing: BUN 20 mg/dL (7-18) H 10/30/24 06:42 Creatinine 0.7 mg/dL (0.55-1.02) 10/30/24 06:42 Medications needing adjustments: Reviewed (CrCl 55.16 mL/min) List of meds needing interventions: Current medications are okay Anticoagulation Anticoagulation: Hgb 12.3 g/dL (11.2-15.7) 10/30/24 06:42 Hct 39.3 % (36.0-46.0) 10/30/24 06:42 Plt Count 230 10^3/uL (130-400) 10/30/24 06:42 Creatinine 0.7 mg/dL (0.55-1.02) 10/30/24 06:42 DVT Prophylaxis: Reviewed Medications: Enoxaparin (40mg daily) Relevant Labs Relevant Labs: Sodium 142 mmol/L (136-145) 10/30/24 06:42 Potassium 4.1 mmol/L (3.5-5.1) 10/30/24 06:42 Chloride 105 mmol/L (98-107) 10/30/24 06:42 Magnesium 1.9 mg/dL (1.8-2.4) 10/30/24 06:42 Electrolytes, C-Reactive P, ESR: Reviewed DM Control DM Control: Glucose 179 mg/dL (74-106) H 10/30/24 06:42 Finger Stick Blood Glucose 179 1214 Finger Stick Blood Glucose 179 1132 Finger Stick Blood Glucose 179 1132 Finger Stick Blood Glucose 198 0826 Finger Stick Blood Glucose 198 0753 Finger Stick Blood Glucose 198 0753 DM Control: Reviewed Insulin Dosing, Diabetic Medication: Has order for SS insulin Cardiac Review Cardiac Review: Troponin I 417 ng/L (<or=51) H* 10/30/24 06:42 NT-Pro-B Natriuret Pep 261 pg/mL (<300) 10/29/24 17:03 BP, HR, EF%: Reviewed (HR 109, Ox 91, troponin increased from 406) List meds needing interventions: Has orders for amlodipine 10mg daily and losartan 100mg daily QTc Review QTc: Reviewed (473 from 10/29/24) IV to PO Switch IV Medications: Reviewed Home Meds Home Med List reviewed: Intervened Relevent Home Meds Not ordered & why?: Elizabeth (on hold per H+P) Changed biotin 5mg capsule to patients own order Changed asorbic acid order from 1mg dose to 500mg dose. Unsure why the original order was put in as 1mg (0.0023 tablets) Recently filled Anoro Ellipta inhaler but not on home med list - reached out to nurse to see if patient uses at home. Waiting to hear back Current Meds Current Medication Order Review: Intervened Pharmacy Antibiotic Review Relevant Labs: WBC 10.24 10^3/uL (4.4-10.8) 10/30/24 06:42 Temperature 36.7 C Temperature 35.7 C Pharmacy Antibiotic Activity: C/S review and Reviewed, no change Comments: Patient is on doxycycline PO, day 1, for COPD exacerbation. WBC decreased from 13.49, no cultures at this time. Comments Comments/Follow Ups: Follow up on home med question (Anoro Ellipta)
[2024-10-30] MEDS: Rosuvastatin 5 MG TAB PO (21:11)
--- NOTE | 2024-10-30 22:30 | RT.EKG_ITS ---
APPROVED REPORT Exam: Resting ECG Reason for Exam: svt Patient Location: I HR:140 bpm ECG Measurements Heart Rate 140 AXIS NJ 247 P 120 QRSd 86 QRS 95 QT 332 T 147 QTc 507 Conclusion Supraventricular tachycardia Right axis deviation...QRS axis ( 91,269) Nonspecific T abnormalities, diffuse leads...T <-0.10mV, ant/lat/inf
[2024-10-30] MEDS: Adenosine 6 MG/2 ML VIAL ×2 (22:55→23:01)
[2024-10-30] MEDS: LORazepam 20 MG/10 ML VIAL (23:09)
[2024-10-30] MEDS: Ipratropium 0.5 MG/2.5 ML UPD VIAL (23:15)
[2024-10-30] MEDS: Levalbuterol 0.63 MG/3 ML UPD VIAL (23:15)
--- NOTE | 2024-10-30 23:18 | W.EVENT ---
Date of service: 10/30/24 Time of Service: 23:18 Event Note: Patient was observed to have gone into symptomatic SVT at 10:36 PM with a heart rate of 154 confirmed by EKG. Phalen's maneuver was attempted and patient did not have mild response heart rate remained elevated. Therefore, patient was given 6 mg adenosine without improvement pending additional 12 mg of adenosine with resolution of SVT and patient's heart rate returning to sinus tach on 120. Patient was anxious and was given 1 mg IV Ativan with heart rate returning to low 100s. Time Spent with Patient Time spent in critical care(minutes): 45 Time Spent Included: Coordination of care, Chart review and Documenting critically ill care
[2024-10-31] VITALS (17 sets, daily range): BP systolic 105–135; BP diastolic 65–90; PULSE 85–155; RESP 16–24; TEMP 36.6–37.1; O2SAT 88–95
[2024-10-31] MEDS: Levalbuterol 0.63 MG/3 ML UPD VIAL UPD ×3 (05:49→19:20)
[2024-10-31] MEDS: Ipratropium 0.5 MG/2.5 ML UPD VIAL 0.25 MG UPD (05:50)
[2024-10-31 06:39] LABS: HCT 39.8 % (36.0-46.0); HGB 12.5 g/dL (11.2-15.7); MCH 28.8 pg (27.0-33.0); MCHC 31.4 % (32.0-36.0); MCV 92 fL (80-95); MPV 10.8 fL (8.0-11.0); Platelet Count 226 10^3/uL (130-400); RBC 4.34 10^6/uL (3.93-5.22); RDW 13.9 % (11.7-14.6); RDW-SD 46.6 fL; WBC 15.11 10^3/uL (4.4-10.8)
[2024-10-31 07:04] LABS: ALT 82 U/L (14-59); AST 45 U/L (15-37); Albumin 3.5 g/dL (3.4-5.0); Alkaline Phosphatase 64 U/L (46-116); Anion Gap 7.0 mmol/L (3-11); BUN 21 mg/dL (7-18); Bilirubin, Total 0.3 mg/dL (0.2-1.0); CO2 29.0 mmol/L (21.0-32.0); Calcium 8.9 mg/dL (8.5-10.1); Chloride 106 mmol/L (98-107); Estimated GFR 93.56 (mL/min/1.73m2); Glucose 117 mg/dL (74-106); Magnesium 1.9 mg/dL (1.8-2.4); Potassium 4.1 mmol/L (3.5-5.1); Sodium 142 mmol/L (136-145); Total Protein 6.6 g/dL (6.4-8.2)
[2024-10-31 07:23] LABS: Troponin I 131 ng/L (<or=51)
[2024-10-31] MEDS: Budesonide/Formoterol 80/4.5 6.9 GM 60 PUFF INH IH (08:49)
[2024-10-31] MEDS: Enoxaparin 40 MG/0.4 ML SYR SC (09:09)
[2024-10-31] MEDS: Normal Saline Flush 10 ML SYR IVP ×2 (09:09→10:02)
[2024-10-31] MEDS: Ascorbic Acid 500 MG TAB PO (09:09)
[2024-10-31] MEDS: Omega-3 Fatty Acids 1000 MG CAP PO (09:09)
[2024-10-31] MEDS: Cholecalciferol (Vitamin D3) 1,000 UNIT TAB 3000 UNITS PO (09:09)
[2024-10-31] MEDS: guaiFENesin 600 MG TABCR PO ×2 (09:10→20:12)
[2024-10-31] MEDS: Multivitamin TAB 1 TAB PO (09:10)
[2024-10-31] MEDS: Sertraline 50 MG TAB PO (09:10)
[2024-10-31] MEDS: Doxycycline Hyclate 100 MG CAP PO ×2 (09:10→20:12)
[2024-10-31] MEDS: Losartan 50 MG TAB 100 MG PO (09:10)
[2024-10-31] MEDS: predniSONE 20 MG TAB 40 MG PO (09:10)
[2024-10-31] MEDS: amLODIPine 10 MG TAB PO (09:10)
[2024-10-31] MEDS: Loratidine 10 MG TAB PO (09:10)
[2024-10-31] MEDS: Cyanocobalamin 500 MCG TAB 1000 MCG PO (09:10)
[2024-10-31] MEDS: Aspirin 81 MG CHEW PO (09:10)
[2024-10-31] MEDS: Adenosine 6 MG/2 ML VIAL IVP ×2 (10:01→17:24)
[2024-10-31] MEDS: LORazepam 20 MG/10 ML VIAL IVP (10:10)
[2024-10-31] MEDS: Ipratropium 0.5 MG/2.5 ML UPD VIAL UPD ×2 (11:19→19:15)
--- NOTE | 2024-10-31 15:42 | PDOC.CMPRO ---
Date of service: 10/31/24 Time of Service: 15:42 Care Management Progress Note Progress Note Text Progress Note Text: Jenny was sitting up in the bed with an icepack on her head, when CM met with her today. She stated that she was really tired. She was very pleasant with CM, but stated that she really didn't want to chat. She had just been given some Ativan, and was hoping to sleep. Jenny had an event last night where her HR went up to 154. She required adenosine x 2, and continues on continuous telemetry. She has been using her nc O2 on and off today. Discharge Potential Discharge Needs: PCP F/U Appt Anticipated Barriers to Discharge: None Identified Patient/Family Education Needs: Review discharge instructions, discuss Ask Me Three Transportation: Private vehicle Plan: Anticipate that Jenny will discharge home in the next day or 2 with no new home care services. She will f/u with her PCP and her ditto machine operator and continue per her plan of care. Jenny will transport home with her . CM will continue to follow. Social Determinants of Health Screening Social Determinants of health last assessed in clinic: 10/31/24 Will the Patient Participate in the Screening?: Yes Do you worry about having a steady place to live?: yes What is your living situation today?: I have housing today, but am worried about losing it Problems where you live: no known problems In the past 12 months, have you had to go without electric, gas, oil or water in your home?: no 1. Within the past 12 months, we worried whether our food would run out before we got money to buy more.: Don't know/refused 2. Within the past 12 months, the food we bought just didn't last and we didn't have money to get more.: Don't know/refused Has lack of transportation kept you from medical appointments or from doing things needed for daily living?: no Has anyone in your life made you feel unsafe or unsupported?: no How hard is it for you to pay for the very basics like food, housing, medical care, and heating? Would you say it is:: Not hard at all Do you want help finding or keeping work or a job?: I do not need or want help If for any reason you need help with day-to-day activities such as bathing, preparing meals, shopping, managing finances, etc., do you get the help you need?: I don?t need any help How often do you feel lonely or isolated from those around you?: Never Do you speak a language other than Dive[place] at home?: No Does the patient want assistance with any of the above?: No Health Related Social Needs Health related social needs: housing instability, housed, with risk of homelessness (Z59.811)
--- NOTE | 2024-10-31 16:10 | PGE_ITS ---
Date of Service Date of service: 10/31/24 Time of Service: 16:10 Assessment and Plan Assessment and plan (1) COPD exacerbation: Start date: 10/29/24 Status: Acute Assessment and plan: - Patient presented with acute exacerbation of COPD with acute hypoxic respiratory failure - Was given IV Solu-Medrol in the emergency department bed and nebulizers - Will continue nebulizer treatment - Transition to p.o. prednisone 40 mg daily - Was also given IV doxycycline in the emergency department, will transition to p.o. doxycycline 10/31/24 c/w inhalers and steroids although inhalers can cause episodes of svt (2) Acute hypoxemic respiratory failure: Status: Acute Assessment and plan: - Secondary to COPD exacerbation as noted above - Initially on 4 L nasal cannula, has since been transition to room air at rest - Goal oxygen saturation 88 to 92% (3) Elevated troponin I level: Start date: 10/29/24 Status: Acute Assessment and plan: - Troponin in the ED peaked at 491, thought to be secondary to demand ischemia in the setting of acute expiratory failure from COPD exacerbation as noted above - Patient without chest pain or EKG changes - Repeat troponin decreased from 417 - Will follow-up a.m. troponin 10/31/24 troponins have been decreasing over last 24 hours. No concerns for acs at this point. SOB 2/2 COPD and improving with rx (4) Diabetes: Status: Chronic Assessment and plan: - Hold home GLP-1 - Sliding scale insulin, carb consistent diet (5) Anxiety disorder: Status: Chronic Assessment and plan: - Continue home sertraline (6) HTN (hypertension): Status: Chronic Assessment and plan: - Continue home losartan (7) HLD (hyperlipidemia): Status: Chronic Assessment and plan: - Continue home statin Subjective Subjective Interval history since last seen: Patient did have an episode of his SVT which responded to amiodarone 6 mg x 1. Currently her heart rate is 107 will but fluctuates between 88 and 110. Patient remains asymptomatic. Exam Narrative Exam Narrative: aaox3 mild distess bilat exp wheeze no amu tachycardia no mrg no BLE Objective Last Vital Signs Temp 36.9 C 10/31/24 15:04 Pulse 104 H 10/31/24 15:04 Resp 20 10/31/24 15:04 BP 125/85 10/31/24 15:04 Pulse Ox 91 L 10/31/24 15:04 Laboratory Results - last 24 hr 10/31/24 10/31/24 05:35 06:09 WBC 15.11 H RBC 4.34 Hgb 12.5 Hct 39.8 MCV 92 MCH 28.8 MCHC 31.4 L RDW 13.9 Plt Count 226 MPV 10.8 Sodium Cancelled 142 Potassium Cancelled 4.1 Chloride Cancelled 106 Carbon Dioxide Cancelled 29.0 Anion Gap Cancelled 7.0 BUN Cancelled 21 H Creatinine Cancelled 0.7 Est GFR (CKD-EPI 2020) Cancelled 93.56 Glucose Cancelled 117 H Calcium Cancelled 8.9 Magnesium 1.9 Total Bilirubin 0.3 AST 45 H ALT 82 H Alkaline Phosphatase 64 Troponin I 131 H* Total Protein 6.6 Albumin 3.5 Time Spent with Patient Time Spent with Patient: 25-34 minutes Time was spent: preparing to see the patient(eg.review tests), obtaining and/or reviewing separately otained hiistory, ordering medications,tests, procedures, referring, communicating with other health post acute care registered nurse, indepentently interpreting results, counseling the patient and care coordination
[2024-10-31] MEDS: LORazepam 20 MG/10 ML VIAL (17:25)
[2024-10-31] MEDS: Adenosine 6 MG/2 ML VIAL 12 MG IVP (17:31)
[2024-10-31] MEDS: Rosuvastatin 5 MG TAB PO (20:12)
[2024-10-31] MEDS: Insulin Aspart 300 UNITS/3 ML PEN SC (22:07)
[2024-11-01] VITALS (17 sets, daily range): BP systolic 114–137; BP diastolic 70–89; PULSE 80–117; RESP 16–22; TEMP 36.1–37; O2SAT 89–95
[2024-11-01] MEDS: Ipratropium 0.5 MG/2.5 ML UPD VIAL UPD ×5 (00:35→23:46)
[2024-11-01] MEDS: Levalbuterol 0.63 MG/3 ML UPD VIAL UPD ×5 (00:36→23:46)
[2024-11-01] MEDS: Normal Saline Flush 10 ML SYR IVP ×3 (06:29→20:04)
[2024-11-01 07:15] LABS: HCT 42.3 % (36.0-46.0); HGB 13.4 g/dL (11.2-15.7); MCH 28.9 pg (27.0-33.0); MCHC 31.7 % (32.0-36.0); MCV 91 fL (80-95); MPV 10.4 fL (8.0-11.0); Platelet Count 228 10^3/uL (130-400); RBC 4.64 10^6/uL (3.93-5.22); RDW 13.9 % (11.7-14.6); RDW-SD 46.5 fL; WBC 11.68 10^3/uL (4.4-10.8)
[2024-11-01 07:41] LABS: ALT 71 U/L (14-59); AST 24 U/L (15-37); Albumin 3.4 g/dL (3.4-5.0); Alkaline Phosphatase 75 U/L (46-116); Anion Gap 7.7 mmol/L (3-11); BUN 22 mg/dL (7-18); Bilirubin, Total 0.3 mg/dL (0.2-1.0); CO2 30.3 mmol/L (21.0-32.0); Calcium 9.0 mg/dL (8.5-10.1); Chloride 105 mmol/L (98-107); Estimated GFR 97.10 (mL/min/1.73m2); Glucose 116 mg/dL (74-106); Magnesium 1.9 mg/dL (1.8-2.4); Potassium 3.7 mmol/L (3.5-5.1); Sodium 143 mmol/L (136-145); Total Protein 6.6 g/dL (6.4-8.2)
[2024-11-01] MEDS: Omega-3 Fatty Acids 1000 MG CAP PO (08:42)
[2024-11-01] MEDS: guaiFENesin 600 MG TABCR PO ×2 (08:42→20:03)
[2024-11-01] MEDS: Cyanocobalamin 500 MCG TAB 1000 MCG PO (08:42)
[2024-11-01] MEDS: Cholecalciferol (Vitamin D3) 1,000 UNIT TAB 3000 UNITS PO (08:42)
[2024-11-01] MEDS: Doxycycline Hyclate 100 MG CAP PO ×2 (08:43→20:03)
[2024-11-01] MEDS: Ascorbic Acid 500 MG TAB PO (08:43)
[2024-11-01] MEDS: Sertraline 50 MG TAB PO (08:43)
[2024-11-01] MEDS: Aspirin 81 MG CHEW PO (08:43)
[2024-11-01] MEDS: amLODIPine 10 MG TAB PO (08:43)
[2024-11-01] MEDS: Losartan 50 MG TAB 100 MG PO (08:43)
[2024-11-01] MEDS: Enoxaparin 40 MG/0.4 ML SYR SC (08:43)
[2024-11-01] MEDS: Loratidine 10 MG TAB PO (08:43)
[2024-11-01] MEDS: predniSONE 20 MG TAB 40 MG PO (08:43)
[2024-11-01] MEDS: Multivitamin TAB 1 TAB PO (08:43)
--- NOTE | 2024-11-01 11:06 | PT.INIE ---
PT Notes Visit Reasons: COPD Exacerbation, Elevated Troponins Inpatient Physical Therapy Evaluation Date: 11/01/24 Referring Doctor: Lety Ulloa NP PT Orders: PT CONSULT: safety consult for d/c; eval for AD Precautions: standard Patient Profile/Admitting Diagnosis: Pooja is a 69 year old female referred for PT evaluation and treatment in acute care setting, where she is being medically managed for COPD exacerbation and acute hypoxic respiratory failure. During hospitalization, demonstrated elevated troponin with SVT elevation on 10/30/2024, with heart rates well-controlled at time of consult. 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 She lives with her in a private home with 3STE. Fully independent at baseline. Equipment Owned/DME: Has equipment that was owned by her mother, including canes, FWW, wheelchair. Does not utilize any type of assistance at baseline. Does not have supplemental oxygen at home. Subjective: Jenny is agreeable to PT consultation. States that she has been walking around her room independently. Feels that her legs are little wobbly and she remains short of breath. She denies fall history. States that she's very independent at baseline. States that she's struggled more and more with her breathing this past year. Has never participated in Pulmonary Rehab. Objective: General Observation: Resting in bed. Telemetry in place. Otherwise no lines. Mental Status: A&Ox3 Pain: Denies Vital Signs: SaO2 88% at rest while lying semi-reclined, heart rate 100. With transition to sitting position, she resaturates up to 90%, heart rate to 110; heart rate down to 98 with pursed lip breathing. During ambulation, desaturates to 86% with ARNETT (see distances noted below). ROM: Right Upper Extremity: WFL Left Upper Extremity: WFL Right Lower Extremity: WFL Left Lower Extremity: WFL Strength: Right Upper Extremity: Shoulder flexion 3/5 or greater. Bicesp 4+/5. Triceps 4+/5 Left Upper Extremity: Shoulder flexion 3/5 or greater. Bicesp 4+/5. Triceps 4+/5 Right Lower Extremity: 5/5 for hip flexion, knee extension, knee flexion, ankle DF Left Lower Extremity: 5/5 for hip flexion, knee extension, knee flexion, ankle DF Bed Mobility/Transfers: supine-sit: independent sit-supine: independent sit-stand: independent stand-sit: independent Gait: Ambulates 120'x3, no AD, SBA with mild path deviation and increasing ARNETT on room air. Able to recover SaO2 with standing rest. Stairs: Ascends and descends therapeutic stairs 6x2, 4x3 with bilat rails, supervision only. Balance: Static Sitting: normal Dynamic Sitting: normal Static Standing: good Dynamic Standing: good Special Tests: Mobility Limitations Standardized Measure [facility] AM-PAC 6 clicks Basic Mobility Inpatient Short Form: Raw Score: 24 CMS Score: 0% impairment 4-Position Balance Test: 3/4 Small SHIRA: 10 seconds Partial Tandem: 10 seconds Full Tandem: 10 seconds, with SBA and hip strategies Single Leg Stance: unable Informed Consent/Education: Patient instructed in purpose of PT consult and plan of care. Treatment: Initial Evaluation (34850) Therapeutic exercises 88147 x 1): Introduced moderate distance ambulation for improved activity tolerance. Patient education for recovery and breathing techniques. Ambulates 120'x3 with standing recovery between. Assessment: Patient is a 69 year old female referred to physical therapy services in acute care setting, where she is being managed for COPD exacerbatino. Patient presents with clinical signs and symptoms consistent with diagnosis. She demonstrates good safety and mobility, but significant reduction in activity tolerance. Requires PT intervention for patient education and progressive cardiovascular activity during her hospital stay. She is appropriate for d/c home once medically stable, with recommendation for consideration of Pulmonary Rehab as an outpatient. Does not require assistive device at this time, although does have access to a rollator walker at home, and can utilize for progressive ambulation upon her return home to allow for breathing recovery. She currently demonstrates the following impairment level findings: 1. Decreased resting oxygen saturation 2. ARNETT with ambulation 3. Oxygen desaturation to 86% with ambulation on room air 4. Gait impairments with path deviation during ambulation 5. Balance impairment with 4 position balance test score 3/4 Impairments are contributing to the following functional limitations: 1. Decreased activity tolerance 2. Unable to ambulate community distances due to ARNETT Patient is assessed as Moderate 16512 complexity based on the following: History: As above Examination: As above Presentation: evolving Decision Making: Moderate complexity Goals: Goals X1 week 1. Oriented to RPE scale 2. Able to demonstrate effective pacing to allow for household distance ambulation without ARNETT Plan of Care/Treatment Plan: 1-2x/day, 7 days/week x 1 week. Plan of care has been reviewed with the BALLISTICS EXPERT providing the service under Physical Therapy direction. Initiate Physical Therapy intervention for strengthening, bed mobility, transfers, gait, stairs, balance training, use of assistive device. DISCHARGE RECOMMENDATIONS: Home with outpatient pulmonary rehab TREATMENT CODE/TIME: 30210, 59280 (10:45-1110) Candi Narayanan, PT, DPT [facility] All Active Problems (Updated 10/31/24 @ 08:30 by EMIGDIO Garcia) Acute hypoxemic respiratory failure (Acute) HTN (hypertension) (Chronic) HLD (hyperlipidemia) (Chronic) Anxiety disorder (Chronic) Adrenal nodule (Acute) Elevated troponin I level (Acute) Diabetes (Chronic) COPD exacerbation (Acute) Medical History Reactive airway disease with acute exacerbation
--- NOTE | 2024-11-01 13:45 | PGE_ITS ---
Date of Service Date of service: 11/01/24 Time of Service: 13:45 Assessment and Plan Assessment and plan (1) COPD exacerbation: Start date: 10/29/24 Status: Acute Assessment and plan: - Patient presented with acute exacerbation of COPD with acute hypoxic respiratory failure - Was given IV Solu-Medrol in the emergency department bed and nebulizers - Will continue nebulizer treatment - Transition to p.o. prednisone 40 mg daily - Was also given IV doxycycline in the emergency department, will transition to p.o. doxycycline 10/31/24 c/w inhalers and steroids although inhalers can cause episodes of svt would benefit from a six minute walk test and home oxygen (2) Acute hypoxemic respiratory failure: Status: Acute Assessment and plan: - Secondary to COPD exacerbation as noted above - Initially on 4 L nasal cannula, has since been transition to room air at rest - Goal oxygen saturation 88 to 92% (3) Elevated troponin I level: Start date: 10/29/24 Status: Acute Assessment and plan: - Troponin in the ED peaked at 491, thought to be secondary to demand ischemia in the setting of acute expiratory failure from COPD exacerbation as noted above - Patient without chest pain or EKG changes - Repeat troponin decreased from 417 - Will follow-up a.m. troponin 10/31/24 troponins have been decreasing over last 24 hours. No concerns for acs at this point. SOB 2/2 COPD and improving with rx (4) Diabetes: Status: Chronic Assessment and plan: - Hold home GLP-1 - Sliding scale insulin, carb consistent diet (5) Anxiety disorder: Status: Chronic Assessment and plan: - Continue home sertraline (6) HTN (hypertension): Status: Chronic Assessment and plan: - Continue home losartan (7) HLD (hyperlipidemia): Status: Chronic Assessment and plan: - Continue home statin (8) SVT (supraventricular tachycardia): Status: Chronic Assessment and plan: pt did have multiple runs of SVT which responded to multiple runs of adenosine. Will add ccb and titrate to keep hr below 100 Subjective Subjective Interval history since last seen: Pt seen and examined in her room this am. POC d/w pt and at bedside. POC also d/w bedside nurse during MDR. No chest pain but still with some SOB attributed to her COPD Exam Narrative Exam Narrative: heent-ncat mmm eomi pursed lips breathing- neck-no lad no jvd cv-tachycardia lung-bilat wheeze abd-sndnt ext-no cce Objective Last Vital Signs Temp 36.2 C L 11/01/24 11:16 Pulse 101 H 11/01/24 11:37 Resp 16 11/01/24 11:21 BP 137/89 11/01/24 11:16 Pulse Ox 90 L 11/01/24 11:21 Laboratory Results - last 24 hr 11/01/24 06:15 WBC 11.68 H RBC 4.64 Hgb 13.4 Hct 42.3 MCV 91 MCH 28.9 MCHC 31.7 L RDW 13.9 Plt Count 228 MPV 10.4 Sodium 143 Potassium 3.7 Chloride 105 Carbon Dioxide 30.3 Anion Gap 7.7 BUN 22 H Creatinine 0.6 Est GFR (CKD-EPI 2020) 97.10 Glucose 116 H Calcium 9.0 Magnesium 1.9 Total Bilirubin 0.3 AST 24 ALT 71 H Alkaline Phosphatase 75 Total Protein 6.6 Albumin 3.4 Time Spent with Patient Time Spent with Patient: 25-34 minutes Time was spent: preparing to see the patient(eg.review tests), obtaining and/or reviewing separately otained hiistory, ordering medications,tests, procedures, referring, communicating with other health social worker palliative care, indepentently interpreting results, counseling the patient and care coordination
--- NOTE | 2024-11-01 14:02 | PT.INTREAT ---
PT Notes Visit Reasons: COPD Exacerbation, Elevated Troponins Inpatient Physical Therapy Treatment Note [facility] Date: 11/01/24 PRECAUTIONS: standard SUBJECTIVE: Jenny has family present, but is agreeable to taking a walk. OBJECTIVE: ? VITALS: ? Pre-Treatment: Resting SaO2 90% on RA ? During Treatment:? BP ranging 110-135. SaO2 dropping to mid 80s during ambulation? Therapeutic Exercises (30022a9): Direct one-on-one instruction in therapeutic exercises to develop strength, endurance, range of motion and flexibility. ? Oriented to Tanisha/PRE scale, with encouragement to stay in 2-4 range with all activity. Cued for pacing. Instructed in standing hip AB with fingertip support, 5x3 each side, increasing ARNETT. RPE 7. Recovers with seated rest. ? Ambulation ? Assistive Device: none? Weight bearing: WBAT Assist: supervision for hallway distances. Ambulates independently in room. ? Distance:? 120'x2 ? Deviation: minor path deviation. ? ASSESSMENT:? Good understanding of RPE scale and self-pacing. Interested in Pulmonary Rehab. PLAN: Continue PT intervention to maximize mobility and safety. TREATMENT CODE/TIME: 88862 DISCHARGE RECOMMENDATION: Home with outpatient Pulmonary Rehab
--- NOTE | 2024-11-01 18:20 | PDOC.CMPRO ---
Date of service: 11/01/24 Time of Service: 18:20 Care Management Progress Note Progress Note Text Progress Note Text: Jenny was sitting up in the bed when CM met with her today. She looked much improved and stated that she was feeling a lot better. Her HR is now WNL, and she is no longer requiring nc O2. She stated that she worked with PT today, which felt really good and that she also had a good amount of company today - and she's not tired! Discharge Potential Discharge Needs: PCP F/U Appt and Other (pulmonology f/u - PT is recommending pulmonary rehab) Anticipated Barriers to Discharge: None Identified Patient/Family Education Needs: Review discharge instructions, discuss Ask Me Three Transportation: Private vehicle Plan: Anticipate that Jenny will discharge home with no new home care services. She will f/u with her PCP and her vehicle maintenance technician and continue per her plan of care. Jenny will transport home with her . CM will continue to follow. Social Determinants of Health Screening Social Determinants of health last assessed in clinic: 11/01/24 Will the Patient Participate in the Screening?: Yes Do you worry about having a steady place to live?: yes What is your living situation today?: I have housing today, but am worried about losing it Problems where you live: no known problems In the past 12 months, have you had to go without electric, gas, oil or water in your home?: no 1. Within the past 12 months, we worried whether our food would run out before we got money to buy more.: Don't know/refused 2. Within the past 12 months, the food we bought just didn't last and we didn't have money to get more.: Don't know/refused Has lack of transportation kept you from medical appointments or from doing things needed for daily living?: no Has anyone in your life made you feel unsafe or unsupported?: no How hard is it for you to pay for the very basics like food, housing, medical care, and heating? Would you say it is:: Not hard at all Do you want help finding or keeping work or a job?: I do not need or want help If for any reason you need help with day-to-day activities such as bathing, preparing meals, shopping, managing finances, etc., do you get the help you need?: I don?t need any help How often do you feel lonely or isolated from those around you?: Never Do you speak a language other than [place] at home?: No Does the patient want assistance with any of the above?: No Health Related Social Needs Health related social needs: housing instability, housed, with risk of homelessness (Z59.811)
[2024-11-01] MEDS: Budesonide/Formoterol 80/4.5 6.9 GM 60 PUFF INH IH (19:41)
[2024-11-01] MEDS: Rosuvastatin 5 MG TAB PO (20:03)
[2024-11-01] MEDS: dilTIAZem 60 MG TAB PO (20:04)
[2024-11-01] MEDS: Insulin Aspart 300 UNITS/3 ML PEN SC (21:43)
[2024-11-02] VITALS (7 sets, daily range): BP systolic 126–144; BP diastolic 72–80; PULSE 73–105; RESP 17–22; TEMP 36–36.5; O2SAT 89–92
[2024-11-02] MEDS: Levalbuterol 0.63 MG/3 ML UPD VIAL UPD (05:40)
[2024-11-02] MEDS: Ipratropium 0.5 MG/2.5 ML UPD VIAL UPD (05:41)
[2024-11-02] MEDS: Budesonide/Formoterol 80/4.5 6.9 GM 60 PUFF INH IH (07:57)
[2024-11-02] MEDS: guaiFENesin 600 MG TABCR PO (08:30)
[2024-11-02] MEDS: Loratidine 10 MG TAB PO (08:30)
[2024-11-02] MEDS: Omega-3 Fatty Acids 1000 MG CAP PO (08:30)
[2024-11-02] MEDS: dilTIAZem 60 MG TAB PO (08:30)
[2024-11-02] MEDS: Enoxaparin 40 MG/0.4 ML SYR SC (08:30)
[2024-11-02] MEDS: Sertraline 50 MG TAB PO (08:30)
[2024-11-02] MEDS: Ascorbic Acid 500 MG TAB PO (08:31)
[2024-11-02] MEDS: Multivitamin TAB 1 TAB PO (08:31)
[2024-11-02] MEDS: Cyanocobalamin 500 MCG TAB 1000 MCG PO (08:31)
[2024-11-02] MEDS: Aspirin 81 MG CHEW PO (08:31)
[2024-11-02] MEDS: Losartan 50 MG TAB 100 MG PO (08:31)
[2024-11-02] MEDS: Doxycycline Hyclate 100 MG CAP PO (08:31)
[2024-11-02] MEDS: Cholecalciferol (Vitamin D3) 1,000 UNIT TAB 3000 UNITS PO (08:31)
[2024-11-02] MEDS: amLODIPine 10 MG TAB PO (08:31)
[2024-11-02] MEDS: Normal Saline Flush 10 ML SYR IVP (08:32)
[2024-11-02 09:08] LABS: Abs Immature Grans 0.05 10^3/uL (0.0-0.06); HCT 46.1 % (36.0-46.0); HGB 14.6 g/dL (11.2-15.7); Immature Grans % 0.4 %; MCH 28.3 pg (27.0-33.0); MCHC 31.7 % (32.0-36.0); MCV 89 fL (80-95); MPV 10.0 fL (8.0-11.0); Platelet Count 244 10^3/uL (130-400); RBC 5.16 10^6/uL (3.93-5.22); RDW 13.6 % (11.7-14.6); RDW-SD 44.5 fL; WBC 11.98 10^3/uL (4.4-10.8)
[2024-11-02 09:18] LABS: ALT 59 U/L (14-59); AST 17 U/L (15-37); Albumin 3.6 g/dL (3.4-5.0); Alkaline Phosphatase 87 U/L (46-116); Anion Gap 9.4 mmol/L (3-11); BUN 21 mg/dL (7-18); Bilirubin, Total 0.5 mg/dL (0.2-1.0); CO2 32.6 mmol/L (21.0-32.0); Calcium 9.2 mg/dL (8.5-10.1); Chloride 102 mmol/L (98-107); Estimated GFR 79.71 (mL/min/1.73m2); Glucose 149 mg/dL (74-106); Potassium 3.6 mmol/L (3.5-5.1); Sodium 144 mmol/L (136-145); Total Protein 7.1 g/dL (6.4-8.2)
[2024-11-02 09:52] LABS: Troponin I 23 ng/L (<or=51)
--- NOTE | 2024-11-02 11:25 | CMDISCH_ITS ---
Date of service: 11/02/24 Time of Service: 11:25 LACE Index Scoring Tool Questions: Length of Stay (in days): 4 - 6 Was the patient admitted via the E.D.?: Yes Comorbidities: Chronic Pulmonary Disease E.D. Visits: 3 Answers: Total Score: 12 Risk of Readmission: High Risk Care Management Discharge Plan Reason for Hospitalization: COPD exacerbation, elevated troponins Discharge Plan: Jenny will discharge home with no new home care services. She will f/u with her PCP and her program management intern and continue per her plan of care. Jenny will transport home with her . Per report, Jenny does not qualify for home O2. Patient/Family Education Needs: Review of discharge instruction, activity, limitation, and plan of care. Discuss ask me three. SDOH Health Related Social Needs: Health related social needs risk of homeless
--- NOTE | 2024-11-02 11:34 | DSE_ITS ---
Date of service: 11/02/24 Time of Service: 11:34 DS: Diagnosis Discharge Diagnosis (1) COPD exacerbation: Status: Acute (2) Acute hypoxemic respiratory failure: Status: Acute (3) Elevated troponin I level: Status: Acute (4) Diabetes: Status: Chronic (5) Anxiety disorder: Status: Chronic (6) HTN (hypertension): Status: Chronic (7) HLD (hyperlipidemia): Status: Chronic (8) SVT (supraventricular tachycardia): Status: Chronic Discharge Plan Disposition Patient Disposition: Home W/Home Health Services Condition: Improving Discharge Details Reason For Visit: COPD Exacerbation, Elevated Troponins Admit Date/Time: 10/29/24 21:23 Admit Provider: Sanford Martinez Attending Provider: Sanford Martinez Primary Care Provider: Charlene Pool Hospital Course Hospital Course: This is a 69-year-old female who was admitted to the hospital on 29 October for COPD exacerbation. While she was in the hospital she was noted to have multiple runs of SVT that responded to adenosine. Ultimately a decision was made to put her on Cardizem which was much easier for her and helped her maintain a heart rate below 100. Patient did do a 6-minute walk test but unfortunately did not qualify for home oxygen. In regards to her diagnostic data on admission her white count was approximately 14.2 high of 15 but at the time of discharge was 12. This has to be viewed in light of continued steroid use. Patient's BUN and creatinine were approximately 20/1 indicating mild dehydration. An A1c was drawn and showed a value of 5.9 but this was another admission sorry patient did have mild elevations in her troponin on admission and ranged between 156 but at the time of discharge was 23. In terms of imaging chest x-ray done on admission did not show any consolidations no microbiology is pending. On the the patient has to be discharged home to which we agreed. Patient will complete a course of steroids and we do recommend close follow-up in the outpatient setting. I did tell the patient that it is possible by a commercial oxygen concentrator if she so wishes. Patient is also going to get her flu shot prior to discharge. Home Meds and New Rx's Prescriptions: New doxycycline hyclate 100 mg Capsule 100 mg PO BID 3 Days Qty: 6 0RF diltiazem HCl [Cardizem] 60 mg Tablet 60 mg PO BID 30 Days Qty: 60 0RF prednisone 10 mg tablet 10 mg PO DAILY Qty: 10 0RF Continued biotin 5 mg capsule 5 mg PO DAILY losartan 100 mg tablet 100 mg PO DAILY Patient Comments: 08/05/24 per PCP notes RH multivitamin Tablet 1 tab PO DAILY cholecalciferol (vitamin D3) 25 mcg (1,000 unit) capsule 3,000 unit PO DAILY budesonide-formoterol [Breyna] 80-4.5 mcg/actuation HFA aerosol inhaler 2 inh inhalation BID ascorbic acid (vitamin C) 1,000 mg capsule 1 g PO DAILY albuterol sulfate 90 mcg/actuation HFA aerosol inhaler 2 puff INHALATION Q4H PRN Patient Comments: INHALE TWO PUFFS BY MOUTH EVERY 4 HOURS NEEDED FOR WHEEZE guaifenesin 600 mg tablet extended release 12hr 600 mg PO BID Qty: 10 0RF rosuvastatin 5 mg tablet 5 mg PO DAILY Qty: 30 0RF aspirin 81 mg tablet 81 mg PO DAILY Qty: 90 0RF sertraline 50 mg Tablet 50 mg PO DAILY Mounjaro 7.5 mg/0.5 mL pen injector 7.5 mg SUBCUT .qweekly Patient Comments: INJECT 7.5MG (1 PEN) SUBCUTANEOUSLY EVERY WEEK FOR 4 WEEKS Discontinued amlodipine 10 mg tablet 10 mg PO DAILY Patient Comments: TAKE ONE TABLET BY MOUTH EVERY DAY No Action omega-3 fatty acids 1,000 mg capsule 1,000 mg PO DAILY Discharge Instructions Activity:: Activity as Tolerated Equipment/Supplies:: No Equipment Needed Diet:: As Tolerated Discharge Orders Discharge Orders: Discharge Order (Routine); Ordered 11/02/24 Ordered By: Branden Howard DS: Summary Time Spent with Patient providing and/or coordinating discharge services: Greater than 30 minutes Status at Discharge Functional status at discharge: independent ambulation Overall status at discharge: patient is progressing back to baseline Mental Status: mental status grossly normal Speech and Movement: speech and movement normal Mood: congruent mood Affect: normal affect Quality:SDOH Health Related Social Needs: Health related social needs risk of homeless Exam Narrative Exam Narrative: heent-ncat mmm eomi pursed lips breathing resolved neck-no lad no jvd cv-tachycardia lung-bilat wheeze speaking in complete sentences no amu abd-sndnt ext-no cce Psych Mental Status: mental status grossly normal Speech and Movement: speech and movement normal Mood: congruent mood Affect: normal affect DS: Data Vitals/I&O Vitals and I&O: Vital Signs Temperature 36.2 C L 11/02/24 07:53 Temperature Source Temporal Artery Scan 11/02/24 07:53 Pulse 82 11/02/24 07:53 Pulse Rhythm Regular 10/29/24 23:24 Pulse 97 H 10/29/24 22:01 Respiratory Rate 17 11/02/24 07:53 Respiratory Effort Short of Breath 10/31/24 17:44 Respiratory Depth Normal 10/29/24 23:24 Respiratory Pattern Normal 10/29/24 23:24 Blood Pressure 131/72 11/02/24 07:53 Blood Pressure Mean 91 11/02/24 07:53 Pulse Oximetry 90 L 11/02/24 07:53 Oxygen Delivery Method Room Air 11/02/24 07:53 Oxygen Flow Rate 0 11/02/24 07:53 Pain Level 0 11/02/24 07:53 Comment PT requested to rest. 10/31/24 23:40 Intake & Output 11/01/24 11/01/24 11/02/24 11:59 23:59 11:59 Intake Total 600 / 1560 960 / 1560 240 / 240 Balance 600 / 1560 960 / 1560 240 / 240 Weight 82.185 kg 81.1 kg Intake: IV 100 / 100 Oral 500 / 1460 960 / 1460 240 / 240 Other: Urine Color Yellow Yellow Urine Odor Normal Normal Comment Ind w/ voiding Pt voids ind. in toilet. Pt voids ind. in toilet. Data Completed and Pending Labs on day of discharge: Labs from last 24 hours 11/02/24 08:58 WBC 11.98 H RBC 5.16 Hgb 14.6 Hct 46.1 H MCV 89 MCH 28.3 MCHC 31.7 L RDW 13.6 Plt Count 244 MPV 10.0 Immature Gran % 0.4 Neutrophils % 55.4 Lymphocytes % 34.7 Monocytes % 5.1 Eosinophils % 3.9 Basophils % 0.5 Nucleated RBC % 0.0 Absolute Neutrophils 6.64 Absolute Lymphocytes 4.16 H Absolute Monocytes 0.61 Absolute Eosinophils 0.47 Absolute Basophils 0.06 Sodium 144 Potassium 3.6 Chloride 102 Carbon Dioxide 32.6 H Anion Gap 9.4 BUN 21 H Creatinine 0.8 Est GFR (CKD-EPI 2020) 79.71 Glucose 149 H Calcium 9.2 Total Bilirubin 0.5 AST 17 ALT 59 Alkaline Phosphatase 87 Troponin I 23 Total Protein 7.1 Albumin 3.6 PFSH All Active Problems (Updated 11/01/24 @ 13:59 by Branden Howard MD) SVT (supraventricular tachycardia) (Chronic) Acute hypoxemic respiratory failure (Acute) HTN (hypertension) (Chronic) HLD (hyperlipidemia) (Chronic) Anxiety disorder (Chronic) Adrenal nodule (Acute) Elevated troponin I level (Acute) Diabetes (Chronic) COPD exacerbation (Acute) Medical History Reactive airway disease with acute exacerbation Social History Smoking/Tobacco Use Status: Current every day Tobacco Type: cigarettes Smoking risk assessment performed?: Yes Alcohol Intake: never Drug use: Never Housing: house Do you feel safe at home: Yes Do you feel safe in your relationship?: Yes Time Spent with Patient Time Spent with Patient: <45 minutes Time was spent: preparing to see the patient(eg.review tests), obtaining and/or reviewing separately otained hiistory, ordering medications,tests, procedures, referring, communicating with other health doggy daycare activities director, indepentently interpreting results, counseling the patient and care coordination
--- NOTE | 2024-11-02 11:35 | PDOC.HHF2F ---
Date of service: 11/02/24 Time of Service: 11:35 Home Health Referral Home Health Orders Clinical synopsis of why skilled professionals are needed: copd Medical diagnosis necessitation home health referral: copd Encounter Date and Reason: I certify that a FTF encounter for this patient was performed on November 02, 2024 and that such encounter was related to the primary reason the patient requires home health services. The encounter was conducted in the following manner: By me as the certifying physician, BAG MAKING MACHINE TENDER, PA or By an inpatient physician, BAG MAKING MACHINE TENDER or PA during an inpatient stay who communicated findings to me, Certification And Authentication I certify that I composed the above information based on my clinical judgment relating to this patient's medical condition and, if applicable, clinical findings communicated to me by the NPP or inpatient physician who performed the FTF encounter. Name of Provider that will be monitoring home health services: Branden Howard
[2024-11-02] MEDS: FLU Vaccine TS 2025-26 MF59C/PF (65UP) 45 MCG/0.5 ML SYR IM (12:35)
== END 2024-11-02 12:45 | disposition home health service (06) | DRG 190 ==
LOC: ER 20:02 → MS 23:20
PROVIDERS: Emergency Medicine; Family Medicine; Admitting Provider Family Medicine; Emergency Provider Physician Assistant; PCP Nurse Practitioner Family; Responsible Provider Hospitalist; Visit Provider Family Medicine
DX: J44.1 Chronic obstructive pulmonary disease with (acute) exacerbation (principal); J96.01 Acute respiratory failure with hypoxia; I47.10 Supraventricular tachycardia, unspecified; I24.89 Other forms of acute ischemic heart disease; Z59.811 Housing instability, housed, with risk of homelessness; E11.9 Type 2 diabetes mellitus without complications; F41.1 Generalized anxiety disorder; I10 Essential (primary) hypertension; E78.5 Hyperlipidemia, unspecified; E27.8 Other specified disorders of adrenal gland; Z79.85 Long-term (current) use of injectable non-insulin antidiabetic drugs; Z87.891 Personal history of nicotine dependence; Z79.82 Long term (current) use of aspirin; Z79.84 Long term (current) use of oral hypoglycemic drugs
CPT/HCPCS: 00123; 36415; 36416; 80048; 80053; 82805; 82962; 85027; 87637; 90653; 93005; 94640; 96361; 96365; 97110; 97162; 99285; 99291; J1650; 71046; 81003; 81015; 83735; 83880; 84443; 84484; 85025; 93010; 94664; 94760; 99223; 99231; 99233; 99238; J0153; J1815; J2060; J2919; J3490; J7512; J7613; J7614; J7620; J7644